=== PATIENT | female | born 1960 | race Caucasian/White ===

== ENCOUNTER 2017-07-01 20:13 | Emergency (ER) | payer MEDICARE, OTHER ==
[2017-07-01] MEDS: HYDROmorphONE 1 MG/ML SYG IM (21:25)
== END 2017-07-02 00:12 | disposition home or self-care (01) ==
LOC: E/R 07-02 00:12
DX: S99.912A Unspecified injury of left ankle, initial encounter (principal); G20 Parkinson's disease; I12.0 Hypertensive chronic kidney disease with stage 5 chronic kidney disease or end stage renal disease; N18.6 End stage renal disease; E11.9 Type 2 diabetes mellitus without complications; W06.XXXA Fall from bed, initial encounter; Y92.9 Unspecified place or not applicable; Z79.82 Long term (current) use of aspirin; Z99.2 Dependence on renal dialysis; Z79.4 Long term (current) use of insulin
CPT/HCPCS: 73610; 73610-RT; 99283-25

== ENCOUNTER 2017-07-15 01:21 | Inpatient (IN) | payer MEDICARE, OTHER ==
[2017-07-15 02:13] LABS: ADD MAN DIFF? NO
[2017-07-15 02:15] LABS: WHITE BLOOD COUNT 11.6 10^3/ul (4.8-10.8)
[2017-07-15 02:15] LABS: ABNORMAL IP MESSAGE 1; BASOPHILS % 0.2 % (0.0-2.0); EOSINOPHILS % 0.1 % (0.0-7.0); HEMATOCRIT 38.4 % (37.0-47.0); HEMOGLOBIN 12.5 g/dl (12.0-16.0); LYMPHOCYTES # 0.4 10^3/ul (0.8-2.9); LYMPHOCYTES % 3.7 % (15.0-51.0); MEAN CORPUSCULAR HEMOGLOBIN 29.8 pg (29.0-33.0); MEAN CORPUSCULAR HGB CONC 32.6 g/dl (32.0-37.0); MEAN CORPUSCULAR VOLUME 91.6 fl (82.0-101.0); MEAN PLATELET VOLUME 9.9 fl (7.4-10.4); MONOCYTE # 1.2 10^3/ul (0.3-0.9); NEUTROPHIL # 9.9 10^3/ul (1.6-7.5); NEUTROPHILS % 85.3 % (39.0-77.0); NUCLEATED RED BLOOD CELLS% 0.2 /100WBC (0.0-0.0); PLATELET COUNT 154 10^3/UL (140-415); RED BLOOD COUNT 4.19 10^6/ul (4.20-5.40); RED CELL DISTRIBUTION WIDTH 16.1 % (11.5-14.5)
[2017-07-15] MEDS: DEXTROSE 50% 50 ML SYRINGE IV ×2 (02:24→21:06)
[2017-07-15 02:49] LABS: INR 1.83; PROTIME 21.6 Sec (11.9-14.9); PT RATIO 1.7
[2017-07-15 02:50] LABS: PARTIAL THROMBOPLASTIN TIME 42.8 Sec (25.0-35.0)
[2017-07-15 03:04] LABS: ADD UMIC YES; POSITIVE DIFF @See below; UR ASCORBIC ACID NEGATIVE (NEGATIVE); UR BILIRUBIN (Dip) NEGATIVE (NEGATIVE); UR BLOOD (Dip) NEGATIVE (NEGATIVE); UR CLARITY CLEAR (CLEAR); UR COLOR YELLOW (YELLOW); UR GLUCOSE (Dip) 2+ mg/dL (NEGATIVE); UR KETONES (Dip) NEGATIVE (NEGATIVE); UR LEUKOCYTE ESTERASE (Dip) NEGATIVE Leu/ul (NEGATIVE); UR NITRITE (Dip) NEGATIVE (NEGATIVE); UR RBC 1 /HPF (0-5); UR SPECIFIC GRAVITY (Dip) 1.011 (1.003-1.030); UR TOTAL PROTEIN (Dip) 2+ mg/dl (NEGATIVE); UR UROBILINOGEN (Dip) NEGATIVE (NEGATIVE); UR WBC 0 /HPF (0-5)
[2017-07-15 03:23] LABS: ALANINE AMINOTRANSFERASE 71 IU/L (13-69); ALBUMIN 5.3 g/dl (3.3-4.9); ALBUMIN/GLOBULIN RATIO 1.39; ALKALINE PHOSPHATASE 273 IU/L (42-121); ANION GAP 45 (8-16); ASPARTATE AMINO TRANSFERASE 105 IU/L (15-46); BILIRUBIN,INDIRECT 0.2 mg/dl (0-1.1); BILIRUBIN,TOTAL 1.1 mg/dl (0.2-1.3); BLOOD UREA NITROGEN 78 mg/dl (7-20); CALCIUM 10.2 mg/dl (8.4-10.2); CARBON DIOXIDE 10 mmol/L (21-31); CHLORIDE 95 mmol/L (97-110); CREATININE 9.46 mg/dl (0.44-1.00); SODIUM 143 mmol/L (135-144); TOTAL PROTEIN 9.1 g/dl (6.1-8.1)
[2017-07-15 03:24] LABS: LACTIC ACID > 12.0 mmol/L (0.5-2.0)
[2017-07-15] MEDS: VANCOMYCIN 1 GM (PMX) 250 ML IVPB (03:30)
[2017-07-15 03:44] LABS: GLUCOSE 47 mg/dl (70-220)
[2017-07-15 03:45] LABS: POTASSIUM 6.8 mmol/L (3.5-5.1)
[2017-07-15 03:47] LABS: TROPONIN-I 0.355 ng/ml (0.00-0.12)
[2017-07-15] MEDS: SODIUM CHLORIDE 0.9% 1L BAG IV* (04:01)
[2017-07-15] MEDS: CEFEPIME 2GM/50 ML (PMX) 50 ML IVPB (04:01)
[2017-07-15 04:19] LABS: LACTIC ACID 7.2 mmol/L (0.5-2.0)
[2017-07-15] MEDS: NA BICARBONATE 8.4% 50 ML SYG IV (06:00)
[2017-07-15] MEDS: CA CHLORIDE 10% 10 ML SYRINGE IV (06:00)
[2017-07-15 06:28] LABS: LACTIC ACID 4.8 mmol/L (0.5-2.0)
[2017-07-15] MEDS: NA POLYST SULFON 15 GM/60 ML BTL PO (06:30)
[2017-07-15] MEDS ORDERED: ONDANSETRON 4 MG INJ IV (07:00)
[2017-07-15] MEDS ORDERED: morphine 4 MG/ML VIAL IV (07:00)
[2017-07-15] MEDS ORDERED: NACL 0.9% 3 ML SYG IV (07:00)
[2017-07-15] MEDS: NITROGLYCERIN 50 MG/D5W (PMX) 250 ML IV ×3 (07:26→15:30)
[2017-07-15] MEDS: MAGNESIUM CITRATE 300 ML BTL PO (07:30)
[2017-07-15] MEDS: GABAPENTIN 300 MG CAP PO ×3 (07:30→21:00)
[2017-07-15] MEDS ORDERED: GLUCAGON 1 MG INJ IM (07:30)
[2017-07-15] MEDS ORDERED: DEXTROSE 50% 50 ML SYRINGE IV (07:30)
[2017-07-15] MEDS ORDERED: GLUCOSE GEL 15 GRAM TUBE PO ×2 (07:30)
[2017-07-15] MEDS ORDERED: GLUCOSE GEL 15 GRAM TUBE BUCCAL (07:30)
[2017-07-15 07:46] LABS: CREATINE KINASE 309 IU/L (23-200)
[2017-07-15] MEDS: SEVELAMER CARBONATE 0.8 GM PKT PO ×3 (07:56→17:35)
[2017-07-15 07:58] LABS: CK INDEX 2.8
[2017-07-15] MEDS: INSULIN ASPART [NOVOLOG] 3 ML PEN SC ×4 (08:00→20:56)
[2017-07-15 08:03] LABS: TROPONIN-I 0.314 ng/ml (0.00-0.12)
[2017-07-15 08:59] LABS: AADO2 Arterial 173.4 mmHg (7.0-24.0); Allen Test ACCEPTAB; Arterial Base Excess -7.3 mmol/L (-3.0-3); Arterial COHb 0.3 % (0.0-3.0); Arterial Fraction of Oxyhgb 90.5 % (93.0-99.0); Arterial HCO3 17.7 mmol/L (22.0-26.0); Arterial MetHb 0.2 % (0.0-1.5); Arterial Total Hemglobin 11.8 g/dl (12.0-18.0); Arterial pCO2 33.8 mmhg (35-45); Blood Gas IEPAP 15/5; Blood Gas PS 10; MODE MASK - BIPAP; Site Right Radial
[2017-07-15] MEDS ORDERED: FUROSEMIDE 40 MG TAB PO (09:00)
[2017-07-15] MEDS ORDERED: NON-FORMULARY/PATIENT OWN MED (Olmesartan-Amlodipine-HCTZ (Tribenzor) 1 TAB) PO (09:00)
[2017-07-15] MEDS: BISACODYL 10 MG SUPP PR (09:30)
[2017-07-15 11:22] LABS: HEPATITIS B SURFACE ANTIGEN NEGATIVE (NEGATIVE)
[2017-07-15] MEDS: LIDOCAINE 5% 35 GM OINT TOP (11:40)
[2017-07-15 13:03] LABS: CREATINE KINASE 259 IU/L (23-200)
[2017-07-15 13:14] LABS: CK INDEX 3.1; CK-MB 7.92 ng/ml (0.0-2.4)
[2017-07-15 13:18] LABS: TROPONIN-I 0.377 ng/ml (0.00-0.12)
[2017-07-15] MEDS: ALBUTEROL/IPRATROPIUM (NEB) 3 ML AMP HHN ×2 (14:29→19:44)
[2017-07-15] MEDS: AMLODIPINE 10 MG TAB PO (16:38)
[2017-07-15] MEDS: DULOXETINE 30 MG CAP DR PO (16:38)
[2017-07-15] MEDS: LOSARTAN 50 MG TAB PO (16:39)
[2017-07-15] MEDS: HEPARIN 5,000 UNIT/0.5 ML VIAL SC ×2 (16:39→21:02)
[2017-07-15] MEDS: HYDROCHLOROTHIAZIDE 12.5 MG CAP PO (16:39)
[2017-07-15] MEDS: FERROUS SULFATE (EC) 325 MG TAB PO (16:39)
[2017-07-15] MEDS: SENNA TAB PO ×2 (16:39→21:00)
[2017-07-15] MEDS: METOPROLOL (XL) 25 MG TAB PO (16:39)
[2017-07-15] MEDS: ASPIRIN 81 MG TAB PO (16:39)
[2017-07-15] MEDS: LACTULOSE 30ML CUP PO (16:40)
[2017-07-15] MEDS: CEFEPIME 1GM/50 ML (PMX) 50 ML IVPB ×2 (16:40→21:00)
[2017-07-15] MEDS: POLYETHYLENE GLYCOL 17 GM PACKET PO ×2 (16:41→21:00)
[2017-07-15] MEDS: INSULIN GLARGINE [LANtus] 3 ML PEN SC ×2 (16:50→20:00)
[2017-07-15] MEDS: CALCITRIOL 0.25 MCG CAP PO (17:37)
[2017-07-15] MEDS: FUROSEMIDE 40 MG INJ IV (17:38)
[2017-07-15] MEDS ORDERED: INSULIN GLARGINE [LANtus] 3 ML PEN SC (21:00)
[2017-07-15] MEDS: ROPINIROLE 0.25 MG TAB PO (21:17)
[2017-07-16] MEDS: LORAZEPAM 2 MG INJ IV ×3 (01:19→20:31)
[2017-07-16] MEDS: ACCU-CHEK XX (01:27)
[2017-07-16] MEDS: ALBUTEROL/IPRATROPIUM (NEB) 3 ML AMP HHN ×4 (02:25→19:45)
[2017-07-16] MEDS: morphine 2 MG INJ IV ×2 (02:38→14:26)
[2017-07-16] MEDS ORDERED: VANCOMYCIN IV PER PHARMACY XX (04:30)
[2017-07-16] MEDS: FUROSEMIDE 40 MG INJ IV (05:16)
[2017-07-16 05:44] LABS: ADD MAN DIFF? NO
[2017-07-16 06:23] LABS: ALANINE AMINOTRANSFERASE 217 IU/L (13-69); ALBUMIN 3.9 g/dl (3.3-4.9); ALBUMIN/GLOBULIN RATIO 1.18; ALKALINE PHOSPHATASE 195 IU/L (42-121); ANION GAP 21 (8-16); ASPARTATE AMINO TRANSFERASE 263 IU/L (15-46); BILIRUBIN,INDIRECT 0.1 mg/dl (0-1.1); BILIRUBIN,TOTAL 0.1 mg/dl (0.2-1.3); BLOOD UREA NITROGEN 56 mg/dl (7-20); CALCIUM 8.7 mg/dl (8.4-10.2); CARBON DIOXIDE 29 mmol/L (21-31); CHLORIDE 93 mmol/L (97-110); CHOL/HDL RATIO 2.4 RATIO; CHOLESTEROL 124 mg/dl (100-200); CREATININE 6.58 mg/dl (0.44-1.00); GLUCOSE 111 mg/dl (70-220); HDL CHOLESTEROL 51 mg/dl (37-92); LDL CHOLESTEROL,CALCULATED 55 mg/dl; POTASSIUM 4.5 mmol/L (3.5-5.1); SODIUM 138 mmol/L (135-144); TOTAL PROTEIN 7.2 g/dl (6.1-8.1); TRIGLYCERIDES 92 mg/dl (0-149)
[2017-07-16] MEDS: hydrALAzine 20 MG INJ IV (07:09)
[2017-07-16 07:22] LABS: HEMOGLOBIN A1C 6.4 % (0-5.9)
[2017-07-16] MEDS: MAGNESIUM CITRATE 300 ML BTL PO (07:30)
[2017-07-16] MEDS: BISACODYL 10 MG SUPP PR (07:30)
[2017-07-16] MEDS: INSULIN ASPART [NOVOLOG] 3 ML PEN SC ×4 (07:35→21:04)
[2017-07-16 07:40] LABS: WHITE BLOOD COUNT 10.3 10^3/ul (4.8-10.8)
[2017-07-16 07:40] LABS: ABNORMAL IP MESSAGE 1; BASOPHILS % 0.2 % (0.0-2.0); EOSINOPHILS # 0.1 10^3/ul (0.0-0.5); HEMOGLOBIN 11.5 g/dl (12.0-16.0); LYMPHOCYTES # 0.6 10^3/ul (0.8-2.9); LYMPHOCYTES % 5.4 % (15.0-51.0); MEAN CORPUSCULAR HEMOGLOBIN 28.7 pg (29.0-33.0); MEAN CORPUSCULAR HGB CONC 32.9 g/dl (32.0-37.0); MEAN CORPUSCULAR VOLUME 87.3 fl (82.0-101.0); MEAN PLATELET VOLUME 10.4 fl (7.4-10.4); MONOCYTE # 0.8 10^3/ul (0.3-0.9); MONOCYTES % 8.1 % (0.0-11.0); NEUTROPHIL # 8.8 10^3/ul (1.6-7.5); NEUTROPHILS % 85.1 % (39.0-77.0); PLATELET COUNT 143 10^3/UL (140-415); RED BLOOD COUNT 4.01 10^6/ul (4.20-5.40); RED CELL DISTRIBUTION WIDTH 15.9 % (11.5-14.5)
[2017-07-16 07:42] LABS: POSITIVE DIFF @See below
[2017-07-16] MEDS: CEFEPIME 1GM/50 ML (PMX) 50 ML IVPB (08:46)
[2017-07-16] MEDS: FERROUS SULFATE (EC) 325 MG TAB PO (08:46)
[2017-07-16] MEDS: SEVELAMER CARBONATE 0.8 GM PKT PO ×2 (08:46→11:30)
[2017-07-16] MEDS: CALCITRIOL 0.25 MCG CAP PO (08:46)
[2017-07-16] MEDS: DULOXETINE 30 MG CAP DR PO (08:46)
[2017-07-16] MEDS: LACTULOSE 30ML CUP PO (08:46)
[2017-07-16] MEDS: SENNA TAB PO ×2 (08:47→21:00)
[2017-07-16] MEDS: ASPIRIN 81 MG TAB PO (08:47)
[2017-07-16] MEDS: GABAPENTIN 300 MG CAP PO ×3 (08:47→21:00)
[2017-07-16] MEDS: POLYETHYLENE GLYCOL 17 GM PACKET PO ×2 (08:47→21:00)
[2017-07-16] MEDS: HEPARIN 5,000 UNIT/0.5 ML VIAL SC ×2 (08:48→21:05)
[2017-07-16] MEDS: AMLODIPINE 10 MG TAB PO (12:18)
[2017-07-16] MEDS: HYDROCHLOROTHIAZIDE 12.5 MG CAP PO (12:18)
[2017-07-16] MEDS: LOSARTAN 50 MG TAB PO (12:18)
[2017-07-16] MEDS: METOPROLOL (XL) 25 MG TAB PO (12:19)
[2017-07-16] MEDS: ALPRAZOLAM 0.25 MG TAB PO (14:53)
[2017-07-16] MEDS: SEVELAMER 400 MG TAB PO ×2 (14:53→17:48)
[2017-07-16] MEDS ORDERED: SEVELAMER 400 MG TAB PO (17:35)
[2017-07-16] MEDS: ROPINIROLE 0.25 MG TAB PO (21:00)
[2017-07-16] MEDS: INSULIN GLARGINE [LANtus] 3 ML PEN SC (21:03)
[2017-07-17] MEDS: ACCU-CHEK XX (02:00)
[2017-07-17] MEDS: ALBUTEROL/IPRATROPIUM (NEB) 3 ML AMP HHN ×2 (03:04→08:00)
[2017-07-17] MEDS: hydrALAzine 20 MG INJ IV (04:13)
[2017-07-17 05:12] LABS: ADD MAN DIFF? NO
[2017-07-17 05:17] LABS: ABNORMAL IP MESSAGE 1; BASOPHILS % 0.2 % (0.0-2.0); EOSINOPHILS # 0.3 10^3/ul (0.0-0.5); EOSINOPHILS % 2.9 % (0.0-7.0); HEMATOCRIT 32.2 % (37.0-47.0); HEMOGLOBIN 11.6 g/dl (12.0-16.0); LYMPHOCYTES # 0.4 10^3/ul (0.8-2.9); LYMPHOCYTES % 4.9 % (15.0-51.0); MEAN CORPUSCULAR VOLUME 91.7 fl (82.0-101.0); MEAN PLATELET VOLUME 9.2 fl (7.4-10.4); MONOCYTE # 0.9 10^3/ul (0.3-0.9); MONOCYTES % 9.4 % (0.0-11.0); NEUTROPHIL # 7.4 10^3/ul (1.6-7.5); NEUTROPHILS % 82.3 % (39.0-77.0); PLATELET COUNT 132 10^3/UL (140-415); RED BLOOD COUNT 3.51 10^6/ul (4.20-5.40); RED CELL DISTRIBUTION WIDTH 15.8 % (11.5-14.5)
[2017-07-17 05:21] LABS: POSITIVE DIFF @See below
[2017-07-17 05:35] LABS: ANION GAP 17 (8-16); BLOOD UREA NITROGEN 35 mg/dl (7-20); CALCIUM 9.1 mg/dl (8.4-10.2); CARBON DIOXIDE 28 mmol/L (21-31); CHLORIDE 100 mmol/L (97-110); CREATININE 4.87 mg/dl (0.44-1.00); GLUCOSE 126 mg/dl (70-220); PHOSPHORUS 4.3 mg/dl (2.5-4.9); POTASSIUM 4.2 mmol/L (3.5-5.1); SODIUM 141 mmol/L (135-144)
[2017-07-17 05:54] LABS: VANCOMYCIN,RANDOM < 5.0 ug/ml
[2017-07-17] MEDS: MAGNESIUM CITRATE 300 ML BTL PO (07:30)
[2017-07-17] MEDS: INSULIN ASPART [NOVOLOG] 3 ML PEN SC ×4 (07:35→21:00)
[2017-07-17] MEDS: LORAZEPAM 2 MG INJ IV ×2 (09:29→19:58)
[2017-07-17] MEDS: HEPARIN 5,000 UNIT/0.5 ML VIAL SC ×2 (09:30→21:00)
[2017-07-17] MEDS: SEVELAMER 400 MG TAB PO ×3 (09:31→18:10)
[2017-07-17] MEDS: METOPROLOL (XL) 25 MG TAB PO (09:31)
[2017-07-17] MEDS: GABAPENTIN 300 MG CAP PO ×3 (09:31→21:13)
[2017-07-17] MEDS: DULOXETINE 30 MG CAP DR PO (09:31)
[2017-07-17] MEDS: FERROUS SULFATE (EC) 325 MG TAB PO (09:32)
[2017-07-17] MEDS: HYDROCHLOROTHIAZIDE 12.5 MG CAP PO (09:32)
[2017-07-17] MEDS: AMLODIPINE 10 MG TAB PO (09:32)
[2017-07-17] MEDS: ASPIRIN 81 MG TAB PO (09:32)
[2017-07-17] MEDS: POLYETHYLENE GLYCOL 17 GM PACKET PO ×2 (09:33→21:14)
[2017-07-17] MEDS: LACTULOSE 30ML CUP PO (09:33)
[2017-07-17] MEDS: LOSARTAN 50 MG TAB PO (09:33)
[2017-07-17] MEDS: CEFEPIME 1GM/50 ML (PMX) 50 ML IVPB (09:34)
[2017-07-17] MEDS: SENNA TAB PO ×2 (09:34→21:12)
[2017-07-17] MEDS: BISACODYL 10 MG SUPP PR (09:34)
[2017-07-17] MEDS: CALCITRIOL 0.25 MCG CAP PO (09:35)
[2017-07-17 09:57] LABS: CREATINE KINASE 232 IU/L (23-200)
[2017-07-17 10:10] LABS: AADO2 Arterial 129.8 mmHg (7.0-24.0); Allen Test ACCEPTAB; Arterial Base Excess 0.4 mmol/L (-3.0-3); Arterial Blood Gas Oxygen Sat 90.9 mmHG (95.0-98.0); Arterial COHb 0.8 % (0.0-3.0); Arterial MetHb 0.2 % (0.0-1.5); Arterial Total Hemglobin 13.5 g/dl (12.0-18.0); Arterial pCO2 35.6 mmhg (35-45); MODE NASAL CANNULA; Site Right Radial
[2017-07-17 10:18] LABS: CK INDEX 2.5; CK-MB 5.77 ng/ml (0.0-2.4)
[2017-07-17 10:21] LABS: TROPONIN-I 0.221 ng/ml (0.00-0.12)
[2017-07-17 11:27] LABS: CREATINE KINASE 215 IU/L (23-200)
[2017-07-17 11:40] LABS: CK INDEX 2.4; CK-MB 5.15 ng/ml (0.0-2.4)
[2017-07-17 11:43] LABS: TROPONIN-I 0.219 ng/ml (0.00-0.12)
[2017-07-17] MEDS: HYDROmorphONE 2 MG TAB PO (12:26)
[2017-07-17] MEDS: ALPRAZOLAM 0.25 MG TAB PO (12:26)
[2017-07-17] MEDS: HEPARIN 1000 UNITS/ML 10 ML INJ CATHETER (16:57)
[2017-07-17] MEDS: VANCOMYCIN 1.5 GM in SOD CHLORIDE 0.9% 250 ML IVPB (18:10)
[2017-07-17] MEDS: HYDROmorphONE 0.5 MG/0.5 ML SYG IV ×2 (19:59→23:46)
[2017-07-17] MEDS: ROPINIROLE 0.25 MG TAB PO (21:13)
[2017-07-18] MEDS: INSULIN GLARGINE [LANtus] 3 ML PEN SC (00:01)
[2017-07-18] MEDS: ACCU-CHEK XX (02:00)
[2017-07-18 06:11] LABS: ADD MAN DIFF? NO
[2017-07-18 06:22] LABS: BASOPHILS % 0.5 % (0.0-2.0); EOSINOPHILS # 0.4 10^3/ul (0.0-0.5); EOSINOPHILS % 4.8 % (0.0-7.0); HEMATOCRIT 34.1 % (37.0-47.0); HEMOGLOBIN 12.3 g/dl (12.0-16.0); LYMPHOCYTES # 0.8 10^3/ul (0.8-2.9); LYMPHOCYTES % 9.5 % (15.0-51.0); MEAN CORPUSCULAR HEMOGLOBIN 33.7 pg (29.0-33.0); MEAN CORPUSCULAR HGB CONC 36.1 g/dl (32.0-37.0); MEAN CORPUSCULAR VOLUME 93.4 fl (82.0-101.0); MEAN PLATELET VOLUME 9.1 fl (7.4-10.4); MONOCYTE # 0.9 10^3/ul (0.3-0.9); MONOCYTES % 10.8 % (0.0-11.0); NEUTROPHIL # 6.1 10^3/ul (1.6-7.5); NEUTROPHILS % 74.2 % (39.0-77.0); PLATELET COUNT 140 10^3/UL (140-415); RED BLOOD COUNT 3.65 10^6/ul (4.20-5.40); RED CELL DISTRIBUTION WIDTH 16.1 % (11.5-14.5)
[2017-07-18 06:22] LABS: WHITE BLOOD COUNT 8.3 10^3/ul (4.8-10.8)
[2017-07-18 07:16] LABS: ANION GAP 16 (8-16)
[2017-07-18 07:22] LABS: BLOOD UREA NITROGEN 20 mg/dl (7-20); CALCIUM 9.3 mg/dl (8.4-10.2); CARBON DIOXIDE 26 mmol/L (21-31); CHLORIDE 103 mmol/L (97-110); MAGNESIUM 2.1 mg/dl (1.7-2.5); PHOSPHORUS 4.2 mg/dl (2.5-4.9); SODIUM 141 mmol/L (135-144)
[2017-07-18] MEDS: MAGNESIUM CITRATE 300 ML BTL PO (07:30)
[2017-07-18 07:45] LABS: GLUCOSE 50 mg/dl (70-220)
[2017-07-18] MEDS: DEXTROSE 50% 50 ML SYRINGE IV (07:50)
[2017-07-18] MEDS: INSULIN ASPART [NOVOLOG] 3 ML PEN SC ×4 (07:55→21:00)
[2017-07-18] MEDS: CALCITRIOL 0.25 MCG CAP PO (08:36)
[2017-07-18] MEDS: LACTULOSE 30ML CUP PO (08:36)
[2017-07-18] MEDS: GABAPENTIN 300 MG CAP PO ×3 (08:37→20:17)
[2017-07-18] MEDS: LOSARTAN 50 MG TAB PO (08:37)
[2017-07-18] MEDS: SEVELAMER 400 MG TAB PO ×3 (08:37→18:27)
[2017-07-18] MEDS: DULOXETINE 30 MG CAP DR PO (08:37)
[2017-07-18] MEDS: AMLODIPINE 10 MG TAB PO (08:38)
[2017-07-18] MEDS: HYDROCHLOROTHIAZIDE 12.5 MG CAP PO (08:38)
[2017-07-18] MEDS: ASPIRIN 81 MG TAB PO (08:38)
[2017-07-18] MEDS: FERROUS SULFATE (EC) 325 MG TAB PO (08:39)
[2017-07-18] MEDS: SENNA TAB PO ×2 (08:39→20:16)
[2017-07-18] MEDS: METOPROLOL (XL) 25 MG TAB PO (08:40)
[2017-07-18] MEDS: BISACODYL 10 MG SUPP PR (08:41)
[2017-07-18] MEDS: HEPARIN 5,000 UNIT/0.5 ML VIAL SC (08:52)
[2017-07-18] MEDS: POLYETHYLENE GLYCOL 17 GM PACKET PO ×2 (09:00→20:15)
[2017-07-18] MEDS: HYDROmorphONE 2 MG TAB PO (09:51)
[2017-07-18] MEDS: CEFEPIME 1GM/50 ML (PMX) 50 ML IVPB (09:53)
[2017-07-18 11:44] LABS: PT RATIO 1.1
[2017-07-18 11:45] LABS: PARTIAL THROMBOPLASTIN TIME 36.5 Sec (25.0-35.0)
[2017-07-18 12:29] LABS: PROTIME 14.4 Sec (11.9-14.9)
[2017-07-18] MEDS: HYDROmorphONE 0.5 MG/0.5 ML SYG IV ×2 (12:59→20:10)
[2017-07-18] MEDS: PHYTONADIONE 10 MG in DEXTROSE 5% 50 ML IVPB (15:25)
[2017-07-18] MEDS: hydrALAzine 20 MG INJ IV (16:35)
[2017-07-18] MEDS: ALBUTEROL/IPRATROPIUM (NEB) 3 ML AMP HHN ×2 (17:41→22:26)
[2017-07-18] MEDS: ROPINIROLE 0.25 MG TAB PO (20:17)
[2017-07-18] MEDS ORDERED: NITROGLYCERIN (SL) 0.4 MG TAB SL (20:30)
[2017-07-18] MEDS: DIPHENHYDRAMINE 25 MG CAP PO (21:55)
[2017-07-18] MEDS: LORAZEPAM 2 MG INJ IV (22:06)
[2017-07-18] MEDS: traMADol 50 MG TAB PO (22:10)
[2017-07-19] MEDS: ACCU-CHEK XX (01:21)
[2017-07-19] MEDS: HYDROmorphONE 0.5 MG/0.5 ML SYG IV ×4 (01:33→22:52)
[2017-07-19] MEDS: ALBUTEROL/IPRATROPIUM (NEB) 3 ML AMP HHN (02:07)
[2017-07-19] MEDS: MAGNESIUM CITRATE 300 ML BTL PO (07:30)
[2017-07-19] MEDS: BISACODYL 10 MG SUPP PR (07:30)
[2017-07-19] MEDS: INSULIN ASPART [NOVOLOG] 3 ML PEN SC ×4 (07:55→20:14)
[2017-07-19] MEDS: SEVELAMER 400 MG TAB PO ×3 (07:55→17:15)
[2017-07-19 08:41] LABS: CREATINE KINASE 84 IU/L (23-200)
[2017-07-19 08:47] LABS: VANCOMYCIN,RANDOM 19.8 ug/ml
[2017-07-19 08:54] LABS: CK INDEX 2.5; CK-MB 2.13 ng/ml (0.0-2.4); TROPONIN-I 0.125 ng/ml (0.00-0.12)
[2017-07-19] MEDS: SENNA TAB PO ×2 (09:00→20:14)
[2017-07-19] MEDS: METOPROLOL (XL) 25 MG TAB PO (09:00)
[2017-07-19] MEDS: AMLODIPINE 10 MG TAB PO (09:00)
[2017-07-19] MEDS: FERROUS SULFATE (EC) 325 MG TAB PO (09:00)
[2017-07-19] MEDS: LOSARTAN 50 MG TAB PO (09:00)
[2017-07-19] MEDS: GABAPENTIN 300 MG CAP PO ×3 (09:00→20:13)
[2017-07-19] MEDS: LACTULOSE 30ML CUP PO (09:00)
[2017-07-19] MEDS: CALCITRIOL 0.25 MCG CAP PO (09:00)
[2017-07-19] MEDS: ASPIRIN 81 MG TAB PO (09:00)
[2017-07-19] MEDS: DULOXETINE 30 MG CAP DR PO (09:00)
[2017-07-19] MEDS: POLYETHYLENE GLYCOL 17 GM PACKET PO ×2 (09:00→20:14)
[2017-07-19] MEDS: CEFEPIME 1GM/50 ML (PMX) 50 ML IVPB (11:10)
[2017-07-19] MEDS: REGADENOSON 0.4 MG/5 ML SYG (11:24)
[2017-07-19] MEDS: DIPHENHYDRAMINE 25 MG CAP PO (17:15)
[2017-07-19] MEDS: morphine LIQ (10 MG/5 ML) CUP PO (17:15)
[2017-07-19] MEDS: HYDROmorphONE 2 MG TAB PO (20:14)
[2017-07-19] MEDS: ROPINIROLE 0.25 MG TAB PO (20:14)
[2017-07-19] MEDS: TRIAMCINOLONE ACET 0.1% 15 GM CR TOP (23:24)
[2017-07-20] MEDS: ALBUTEROL/IPRATROPIUM (NEB) 3 ML AMP HHN ×2 (00:08→08:49)
[2017-07-20] MEDS: hydrALAzine 20 MG INJ IV (00:30)
[2017-07-20] MEDS: DIPHENHYDRAMINE 25 MG CAP PO ×2 (00:53→20:31)
[2017-07-20] MEDS: ACCU-CHEK XX (01:14)
[2017-07-20] MEDS: LORAZEPAM 2 MG INJ IV ×2 (02:03→22:43)
[2017-07-20 06:24] LABS: ADD MAN DIFF? NO
[2017-07-20 06:31] LABS: WHITE BLOOD COUNT 7.8 10^3/ul (4.8-10.8)
[2017-07-20 06:31] LABS: BASOPHILS % 0.3 % (0.0-2.0); EOSINOPHILS # 0.3 10^3/ul (0.0-0.5); EOSINOPHILS % 3.9 % (0.0-7.0); HEMATOCRIT 26.5 % (37.0-47.0); HEMOGLOBIN 8.7 g/dl (12.0-16.0); LYMPHOCYTES # 0.8 10^3/ul (0.8-2.9); LYMPHOCYTES % 10.2 % (15.0-51.0); MEAN CORPUSCULAR HEMOGLOBIN 28.9 pg (29.0-33.0); MEAN CORPUSCULAR HGB CONC 32.8 g/dl (32.0-37.0); MEAN PLATELET VOLUME 9.7 fl (7.4-10.4); MONOCYTE # 0.9 10^3/ul (0.3-0.9); NEUTROPHIL # 5.7 10^3/ul (1.6-7.5); NEUTROPHILS % 73.3 % (39.0-77.0); PLATELET COUNT 107 10^3/UL (140-415); RED BLOOD COUNT 3.01 10^6/ul (4.20-5.40); RED CELL DISTRIBUTION WIDTH 16.3 % (11.5-14.5)
[2017-07-20 07:08] LABS: ANION GAP 20 (8-16); BLOOD UREA NITROGEN 63 mg/dl (7-20); CALCIUM 7.6 mg/dl (8.4-10.2); CARBON DIOXIDE 18 mmol/L (21-31); CHLORIDE 102 mmol/L (97-110); CREATININE 6.31 mg/dl (0.44-1.00); GLUCOSE 145 mg/dl (70-220); MAGNESIUM 1.9 mg/dl (1.7-2.5); PHOSPHORUS 6.6 mg/dl (2.5-4.9); POTASSIUM 4.8 mmol/L (3.5-5.1); SODIUM 135 mmol/L (135-144)
[2017-07-20] MEDS: BISACODYL 10 MG SUPP PR (07:30)
[2017-07-20] MEDS: MAGNESIUM CITRATE 300 ML BTL PO (07:30)
[2017-07-20] MEDS: SENNA TAB PO ×2 (08:05→20:31)
[2017-07-20] MEDS: DULOXETINE 30 MG CAP DR PO (08:05)
[2017-07-20] MEDS: FERROUS SULFATE (EC) 325 MG TAB PO (08:05)
[2017-07-20] MEDS: POLYETHYLENE GLYCOL 17 GM PACKET PO ×2 (08:05→20:31)
[2017-07-20] MEDS: GABAPENTIN 300 MG CAP PO ×3 (08:06→20:31)
[2017-07-20] MEDS: LACTULOSE 30ML CUP PO (08:06)
[2017-07-20] MEDS: INSULIN ASPART [NOVOLOG] 3 ML PEN SC ×4 (08:07→20:45)
[2017-07-20] MEDS: ASPIRIN 81 MG TAB PO (08:11)
[2017-07-20] MEDS: SEVELAMER 400 MG TAB PO ×3 (08:15→17:11)
[2017-07-20] MEDS: METOPROLOL (XL) 25 MG TAB PO (09:00)
[2017-07-20] MEDS: LOSARTAN 50 MG TAB PO (09:00)
[2017-07-20] MEDS: AMLODIPINE 10 MG TAB PO (09:00)
[2017-07-20] MEDS: CEFEPIME 1GM/50 ML (PMX) 50 ML IVPB (09:55)
[2017-07-20] MEDS: CALCITRIOL 0.25 MCG CAP PO (11:53)
[2017-07-20] MEDS: VANCOMYCIN 750 MG in DEXTROSE 5% 150 ML IVPB (14:21)
[2017-07-20] MEDS: HYDROmorphONE 0.5 MG/0.5 ML SYG IV ×2 (16:02→20:33)
[2017-07-20] MEDS: DIMETHICONE STICK TOP (16:02)
[2017-07-20] MEDS: traMADol 50 MG TAB PO (18:50)
[2017-07-20] MEDS: ROPINIROLE 0.25 MG TAB PO (20:31)
[2017-07-20] MEDS: TRIAMCINOLONE ACET 0.1% 15 GM CR TOP (21:52)
[2017-07-21] MEDS: HYDROmorphONE 0.5 MG/0.5 ML SYG IV ×5 (01:58→23:36)
[2017-07-21] MEDS: ACCU-CHEK XX (02:00)
[2017-07-21] MEDS: DIPHENHYDRAMINE 25 MG CAP PO (03:32)
[2017-07-21] MEDS: HEPARIN 1000 UNITS/ML 10 ML INJ CATHETER (05:46)
[2017-07-21 06:42] LABS: ALANINE AMINOTRANSFERASE 86 IU/L (13-69); ALBUMIN 3.9 g/dl (3.3-4.9); ALKALINE PHOSPHATASE 199 IU/L (42-121); ASPARTATE AMINO TRANSFERASE 34 IU/L (15-46); BILIRUBIN,INDIRECT 0.1 mg/dl (0-1.1); BILIRUBIN,TOTAL 0.1 mg/dl (0.2-1.3); TOTAL PROTEIN 7.3 g/dl (6.1-8.1)
[2017-07-21] MEDS: BISACODYL 10 MG SUPP PR (07:30)
[2017-07-21] MEDS: MAGNESIUM CITRATE 300 ML BTL PO (07:30)
[2017-07-21] MEDS: INSULIN ASPART [NOVOLOG] 3 ML PEN SC ×4 (08:03→21:00)
[2017-07-21] MEDS: traMADol 50 MG TAB PO ×2 (08:26→16:11)
[2017-07-21] MEDS: GABAPENTIN 300 MG CAP PO ×3 (08:27→22:07)
[2017-07-21] MEDS: DULOXETINE 30 MG CAP DR PO (08:27)
[2017-07-21] MEDS: FERROUS SULFATE (EC) 325 MG TAB PO (08:27)
[2017-07-21] MEDS: CALCITRIOL 0.25 MCG CAP PO (08:27)
[2017-07-21] MEDS: ASPIRIN 81 MG TAB PO (08:27)
[2017-07-21] MEDS: SEVELAMER 400 MG TAB PO ×3 (08:27→17:25)
[2017-07-21] MEDS: METOPROLOL (XL) 25 MG TAB PO (08:28)
[2017-07-21] MEDS: AMLODIPINE 10 MG TAB PO (08:29)
[2017-07-21] MEDS: LOSARTAN 50 MG TAB PO (08:29)
[2017-07-21] MEDS: SENNA TAB PO ×2 (08:30→21:00)
[2017-07-21] MEDS: LACTULOSE 30ML CUP PO (08:30)
[2017-07-21] MEDS: POLYETHYLENE GLYCOL 17 GM PACKET PO ×2 (09:00→21:00)
[2017-07-21] MEDS: LORAZEPAM 2 MG INJ IV (12:14)
[2017-07-21] MEDS: ALPRAZOLAM 0.25 MG TAB PO (16:12)
[2017-07-21] MEDS: ALBUTEROL/IPRATROPIUM (NEB) 3 ML AMP HHN (20:29)
[2017-07-21] MEDS: ROPINIROLE 0.25 MG TAB PO (22:07)
[2017-07-22] MEDS: DIPHENHYDRAMINE 25 MG CAP PO ×2 (00:16→18:24)
[2017-07-22] MEDS: LORAZEPAM 0.5 MG TAB PO (01:10)
[2017-07-22] MEDS: ACCU-CHEK XX (02:00)
[2017-07-22] MEDS: HYDROmorphONE 0.5 MG/0.5 ML SYG IV ×2 (04:02→09:51)
[2017-07-22] MEDS: MAGNESIUM CITRATE 300 ML BTL PO (07:30)
[2017-07-22] MEDS: BISACODYL 10 MG SUPP PR (07:30)
[2017-07-22] MEDS: INSULIN ASPART [NOVOLOG] 3 ML PEN SC ×4 (07:51→20:47)
[2017-07-22 08:04] LABS: HEPATITIS C VIRAL ANTIBODY NEGATIVE (NEGATIVE)
[2017-07-22] MEDS: SEVELAMER 400 MG TAB PO ×3 (08:33→17:40)
[2017-07-22] MEDS: CALCITRIOL 0.25 MCG CAP PO (08:33)
[2017-07-22] MEDS: SENNA TAB PO ×2 (08:34→21:00)
[2017-07-22] MEDS: DULOXETINE 30 MG CAP DR PO (08:34)
[2017-07-22] MEDS: GABAPENTIN 300 MG CAP PO ×3 (08:34→22:08)
[2017-07-22] MEDS: FERROUS SULFATE (EC) 325 MG TAB PO (08:34)
[2017-07-22] MEDS: AMLODIPINE 10 MG TAB PO (08:34)
[2017-07-22] MEDS: METOPROLOL (XL) 25 MG TAB PO (08:34)
[2017-07-22] MEDS: ASPIRIN 81 MG TAB PO (08:35)
[2017-07-22] MEDS: LOSARTAN 50 MG TAB PO (08:35)
[2017-07-22] MEDS: LACTULOSE 30ML CUP PO (09:00)
[2017-07-22] MEDS: POLYETHYLENE GLYCOL 17 GM PACKET PO ×2 (09:00→21:00)
[2017-07-22 12:19] LABS: HEMOGLOBIN 10.4 g/dl (12.0-16.0)
[2017-07-22] MEDS: morphine LIQ (10 MG/5 ML) CUP PO (13:23)
[2017-07-22] MEDS: HYDROmorphONE 2 MG TAB PO (18:24)
[2017-07-22] MEDS: ROPINIROLE 0.25 MG TAB PO (22:08)
[2017-07-23] MEDS: ALPRAZOLAM 0.25 MG TAB PO (01:20)
[2017-07-23] MEDS: ACCU-CHEK XX (02:00)
[2017-07-23] MEDS: HYDROmorphONE 2 MG TAB PO ×2 (02:22→09:05)
[2017-07-23] MEDS: DIPHENHYDRAMINE 25 MG CAP PO ×3 (05:02→20:36)
[2017-07-23] MEDS: morphine LIQ (10 MG/5 ML) CUP PO ×3 (05:06→22:14)
[2017-07-23] MEDS: BISACODYL 10 MG SUPP PR (07:30)
[2017-07-23] MEDS: MAGNESIUM CITRATE 300 ML BTL PO (07:30)
[2017-07-23] MEDS: INSULIN ASPART [NOVOLOG] 3 ML PEN SC ×4 (08:15→20:44)
[2017-07-23] MEDS: SEVELAMER 400 MG TAB PO ×3 (08:15→17:59)
[2017-07-23] MEDS: LOSARTAN 50 MG TAB PO (08:31)
[2017-07-23] MEDS: AMLODIPINE 10 MG TAB PO (08:32)
[2017-07-23] MEDS: METOPROLOL (XL) 25 MG TAB PO (08:32)
[2017-07-23] MEDS: POLYETHYLENE GLYCOL 17 GM PACKET PO ×2 (09:00→20:38)
[2017-07-23] MEDS: ASPIRIN 81 MG TAB PO (09:00)
[2017-07-23] MEDS: SENNA TAB PO ×2 (09:00→20:41)
[2017-07-23] MEDS: FERROUS SULFATE (EC) 325 MG TAB PO (09:00)
[2017-07-23] MEDS: LACTULOSE 30ML CUP PO (09:00)
[2017-07-23] MEDS: HEPARIN 1000 UNITS/ML 10 ML INJ CATHETER (10:43)
[2017-07-23] MEDS: GABAPENTIN 300 MG CAP PO ×3 (13:44→20:36)
[2017-07-23] MEDS: DULOXETINE 30 MG CAP DR PO (13:44)
[2017-07-23] MEDS: CALCITRIOL 0.25 MCG CAP PO (13:48)
[2017-07-23] MEDS: traMADol 50 MG TAB PO (19:55)
[2017-07-23] MEDS: ROPINIROLE 0.25 MG TAB PO (20:36)
[2017-07-24] MEDS: ACCU-CHEK XX (00:50)
[2017-07-24] MEDS: traMADol 50 MG TAB PO ×2 (00:56→05:17)
[2017-07-24 05:59] LABS: ADD MAN DIFF? NO
[2017-07-24 06:01] LABS: WHITE BLOOD COUNT 8.4 10^3/ul (4.8-10.8)
[2017-07-24 06:01] LABS: BASOPHILS % 0.5 % (0.0-2.0); EOSINOPHILS # 0.2 10^3/ul (0.0-0.5); EOSINOPHILS % 2.4 % (0.0-7.0); HEMATOCRIT 31.1 % (37.0-47.0); LYMPHOCYTES # 0.8 10^3/ul (0.8-2.9); LYMPHOCYTES % 10.1 % (15.0-51.0); MEAN CORPUSCULAR HEMOGLOBIN 29.3 pg (29.0-33.0); MEAN CORPUSCULAR HGB CONC 32.2 g/dl (32.0-37.0); MEAN CORPUSCULAR VOLUME 91.2 fl (82.0-101.0); MEAN PLATELET VOLUME 9.7 fl (7.4-10.4); MONOCYTE # 1.4 10^3/ul (0.3-0.9); MONOCYTES % 16.4 % (0.0-11.0); NEUTROPHIL # 5.9 10^3/ul (1.6-7.5); NEUTROPHILS % 70.5 % (39.0-77.0); PLATELET COUNT 164 10^3/UL (140-415); RED BLOOD COUNT 3.41 10^6/ul (4.20-5.40); RED CELL DISTRIBUTION WIDTH 16.4 % (11.5-14.5)
[2017-07-24 06:47] LABS: ANION GAP 22 (8-16); BLOOD UREA NITROGEN 57 mg/dl (7-20); CALCIUM 9.1 mg/dl (8.4-10.2); CARBON DIOXIDE 23 mmol/L (21-31); CHLORIDE 100 mmol/L (97-110); CREATININE 5.23 mg/dl (0.44-1.00); GLUCOSE 128 mg/dl (70-220); POTASSIUM 5.8 mmol/L (3.5-5.1); SODIUM 139 mmol/L (135-144)
[2017-07-24 07:04] LABS: VANCOMYCIN,RANDOM 10.9 ug/ml
[2017-07-24] MEDS: BISACODYL 10 MG SUPP PR (07:30)
[2017-07-24] MEDS: MAGNESIUM CITRATE 300 ML BTL PO (07:30)
[2017-07-24] MEDS: INSULIN ASPART [NOVOLOG] 3 ML PEN SC ×4 (08:05→20:30)
[2017-07-24] MEDS: LACTULOSE 30ML CUP PO (08:27)
[2017-07-24] MEDS: POLYETHYLENE GLYCOL 17 GM PACKET PO ×2 (08:27→20:30)
[2017-07-24] MEDS: SENNA TAB PO ×2 (08:28→20:30)
[2017-07-24] MEDS: SEVELAMER 400 MG TAB PO ×3 (08:31→18:00)
[2017-07-24] MEDS: GABAPENTIN 300 MG CAP PO ×3 (08:31→20:29)
[2017-07-24] MEDS: AMLODIPINE 10 MG TAB PO (08:31)
[2017-07-24] MEDS: DULOXETINE 30 MG CAP DR PO (08:32)
[2017-07-24] MEDS: CALCITRIOL 0.25 MCG CAP PO (08:32)
[2017-07-24] MEDS: FERROUS SULFATE (EC) 325 MG TAB PO (08:32)
[2017-07-24] MEDS: ASPIRIN 81 MG TAB PO (08:35)
[2017-07-24] MEDS: METOPROLOL (XL) 25 MG TAB PO (08:35)
[2017-07-24] MEDS: LOSARTAN 50 MG TAB PO (08:37)
[2017-07-24] MEDS: morphine LIQ (10 MG/5 ML) CUP PO (10:52)
[2017-07-24] MEDS: ALPRAZOLAM 0.25 MG TAB PO (12:59)
[2017-07-24] MEDS: DIPHENHYDRAMINE 25 MG CAP PO (13:00)
[2017-07-24] MEDS: HEPARIN 1000 UNITS/ML 10 ML INJ CATHETER (14:37)
[2017-07-24] MEDS: VANCOMYCIN 1 GM 250 ML IVPB (17:42)
[2017-07-24] MEDS: ROPINIROLE 0.25 MG TAB PO (20:29)
[2017-07-25] MEDS: ACCU-CHEK XX (00:50)
[2017-07-25] MEDS: morphine LIQ (10 MG/5 ML) CUP PO ×3 (01:32→20:27)
[2017-07-25 05:48] LABS: ADD MAN DIFF? NO
[2017-07-25 05:52] LABS: BASOPHIL # 0.1 10^3/ul (0.0-0.1); BASOPHILS % 1.1 % (0.0-2.0); EOSINOPHILS # 0.2 10^3/ul (0.0-0.5); EOSINOPHILS % 2.4 % (0.0-7.0); HEMATOCRIT 28.1 % (37.0-47.0); HEMOGLOBIN 9.1 g/dl (12.0-16.0); LYMPHOCYTES # 0.7 10^3/ul (0.8-2.9); LYMPHOCYTES % 11.2 % (15.0-51.0); MEAN CORPUSCULAR HEMOGLOBIN 29.3 pg (29.0-33.0); MEAN CORPUSCULAR HGB CONC 32.4 g/dl (32.0-37.0); MEAN CORPUSCULAR VOLUME 90.4 fl (82.0-101.0); MEAN PLATELET VOLUME 10.1 fl (7.4-10.4); MONOCYTE # 1.1 10^3/ul (0.3-0.9); MONOCYTES % 18.2 % (0.0-11.0); NEUTROPHIL # 4.1 10^3/ul (1.6-7.5); NEUTROPHILS % 66.9 % (39.0-77.0); PLATELET COUNT 171 10^3/UL (140-415); RED BLOOD COUNT 3.11 10^6/ul (4.20-5.40)
[2017-07-25 05:52] LABS: WHITE BLOOD COUNT 6.2 10^3/ul (4.8-10.8)
[2017-07-25 06:09] LABS: ANION GAP 19 (8-16); BLOOD UREA NITROGEN 42 mg/dl (7-20); CALCIUM 8.8 mg/dl (8.4-10.2); CARBON DIOXIDE 26 mmol/L (21-31); CHLORIDE 99 mmol/L (97-110); CREATININE 4.08 mg/dl (0.44-1.00); GLUCOSE 126 mg/dl (70-220); SODIUM 139 mmol/L (135-144)
[2017-07-25] MEDS: MAGNESIUM CITRATE 300 ML BTL PO (07:30)
[2017-07-25] MEDS: BISACODYL 10 MG SUPP PR (07:30)
[2017-07-25] MEDS: FERROUS SULFATE (EC) 325 MG TAB PO (08:00)
[2017-07-25] MEDS: DULOXETINE 30 MG CAP DR PO (08:00)
[2017-07-25] MEDS: SENNA TAB PO ×3 (08:00→20:19)
[2017-07-25] MEDS: SEVELAMER 400 MG TAB PO ×3 (08:00→17:21)
[2017-07-25] MEDS: CALCITRIOL 0.25 MCG CAP PO (08:00)
[2017-07-25] MEDS: GABAPENTIN 300 MG CAP PO ×3 (08:01→20:18)
[2017-07-25] MEDS: INSULIN ASPART [NOVOLOG] 3 ML PEN SC ×4 (08:08→20:39)
[2017-07-25] MEDS: POLYETHYLENE GLYCOL 17 GM PACKET PO ×2 (08:10→20:19)
[2017-07-25] MEDS: ASPIRIN 81 MG TAB PO (08:10)
[2017-07-25] MEDS: LACTULOSE 30ML CUP PO (08:11)
[2017-07-25] MEDS: LOSARTAN 50 MG TAB PO (08:41)
[2017-07-25] MEDS: METOPROLOL (XL) 25 MG TAB PO (08:42)
[2017-07-25] MEDS: AMLODIPINE 10 MG TAB PO (08:42)
[2017-07-25] MEDS: traMADol 50 MG TAB PO ×3 (08:58→22:58)
[2017-07-25] MEDS: ALBUTEROL/IPRATROPIUM (NEB) 3 ML AMP HHN ×3 (12:15→19:47)
[2017-07-25] MEDS: ALPRAZOLAM 0.25 MG TAB PO (16:05)
[2017-07-25] MEDS: TRIAMCINOLONE ACET 0.1% 15 GM CR TOP ×2 (17:51→23:52)
[2017-07-25] MEDS: ROPINIROLE 0.25 MG TAB PO (20:18)
[2017-07-25] MEDS: DIPHENHYDRAMINE 25 MG CAP PO (22:09)
[2017-07-26] MEDS: ALBUTEROL/IPRATROPIUM (NEB) 3 ML AMP HHN ×2 (00:22→23:33)
[2017-07-26] MEDS: ACCU-CHEK XX (01:04)
[2017-07-26] MEDS: morphine LIQ (10 MG/5 ML) CUP PO (02:42)
[2017-07-26 06:25] LABS: ADD MAN DIFF? NO
[2017-07-26 06:28] LABS: WHITE BLOOD COUNT 7.1 10^3/ul (4.8-10.8)
[2017-07-26 06:28] LABS: BASOPHIL # 0.1 10^3/ul (0.0-0.1); BASOPHILS % 0.7 % (0.0-2.0); EOSINOPHILS # 0.3 10^3/ul (0.0-0.5); EOSINOPHILS % 3.7 % (0.0-7.0); HEMATOCRIT 30.7 % (37.0-47.0); HEMOGLOBIN 9.6 g/dl (12.0-16.0); LYMPHOCYTES # 0.9 10^3/ul (0.8-2.9); LYMPHOCYTES % 13.2 % (15.0-51.0); MEAN CORPUSCULAR HEMOGLOBIN 28.7 pg (29.0-33.0); MEAN CORPUSCULAR HGB CONC 31.3 g/dl (32.0-37.0); MEAN CORPUSCULAR VOLUME 91.6 fl (82.0-101.0); MEAN PLATELET VOLUME 9.7 fl (7.4-10.4); MONOCYTE # 1.2 10^3/ul (0.3-0.9); MONOCYTES % 16.6 % (0.0-11.0); NEUTROPHIL # 4.6 10^3/ul (1.6-7.5); NEUTROPHILS % 65.7 % (39.0-77.0); PLATELET COUNT 194 10^3/UL (140-415); RED BLOOD COUNT 3.35 10^6/ul (4.20-5.40); RED CELL DISTRIBUTION WIDTH 16.2 % (11.5-14.5)
[2017-07-26 06:56] LABS: ANION GAP 18 (8-16); BLOOD UREA NITROGEN 29 mg/dl (7-20); CALCIUM 8.8 mg/dl (8.4-10.2); CARBON DIOXIDE 29 mmol/L (21-31); CHLORIDE 99 mmol/L (97-110); GLUCOSE 128 mg/dl (70-220); POTASSIUM 4.1 mmol/L (3.5-5.1); SODIUM 142 mmol/L (135-144)
[2017-07-26] MEDS: MAGNESIUM CITRATE 300 ML BTL PO (07:30)
[2017-07-26] MEDS: BISACODYL 10 MG SUPP PR (07:30)
[2017-07-26] MEDS: ASPIRIN 81 MG TAB PO (08:04)
[2017-07-26] MEDS: INSULIN ASPART [NOVOLOG] 3 ML PEN SC ×4 (08:04→21:00)
[2017-07-26] MEDS: SEVELAMER 400 MG TAB PO ×3 (08:04→17:25)
[2017-07-26] MEDS: CALCITRIOL 0.25 MCG CAP PO (08:06)
[2017-07-26] MEDS: LOSARTAN 50 MG TAB PO (08:06)
[2017-07-26] MEDS: METOPROLOL (XL) 25 MG TAB PO (08:07)
[2017-07-26] MEDS: GABAPENTIN 300 MG CAP PO ×3 (08:07→21:21)
[2017-07-26] MEDS: DULOXETINE 30 MG CAP DR PO (08:07)
[2017-07-26] MEDS: POLYETHYLENE GLYCOL 17 GM PACKET PO ×2 (08:07→21:00)
[2017-07-26] MEDS: AMLODIPINE 10 MG TAB PO (08:07)
[2017-07-26] MEDS: FERROUS SULFATE (EC) 325 MG TAB PO (08:07)
[2017-07-26] MEDS: LACTULOSE 30ML CUP PO (08:08)
[2017-07-26] MEDS: SENNA TAB PO ×2 (09:00→21:00)
[2017-07-26] MEDS: DIPHENHYDRAMINE 25 MG CAP PO (11:25)
[2017-07-26] MEDS ORDERED: VITAMIN A & D 5 GM OINT PACKET TOP (16:42)
[2017-07-26] MEDS: hydrOXYzine HCL 25 MG TAB PO (16:45)
[2017-07-26] MEDS: ATORVASTATIN 20 MG TAB PO (21:21)
[2017-07-26] MEDS: ROPINIROLE 0.25 MG TAB PO (21:21)
[2017-07-26] MEDS: traMADol 50 MG TAB PO (21:23)
[2017-07-27] MEDS: ACCU-CHEK XX (00:06)
[2017-07-27] MEDS ORDERED: VITAMIN A & D 5 GM OINT PACKET TOP (02:31)
[2017-07-27] MEDS: ALPRAZOLAM 0.25 MG TAB PO (03:04)
[2017-07-27] MEDS: hydrALAzine 20 MG INJ IV (03:04)
[2017-07-27 06:17] LABS: ADD MAN DIFF? NO
[2017-07-27 06:23] LABS: BASOPHIL # 0.1 10^3/ul (0.0-0.1); BASOPHILS % 0.9 % (0.0-2.0); EOSINOPHILS # 0.4 10^3/ul (0.0-0.5); EOSINOPHILS % 4.9 % (0.0-7.0); HEMATOCRIT 29.1 % (37.0-47.0); HEMOGLOBIN 9.1 g/dl (12.0-16.0); LYMPHOCYTES % 11.9 % (15.0-51.0); MEAN CORPUSCULAR HEMOGLOBIN 28.3 pg (29.0-33.0); MEAN CORPUSCULAR HGB CONC 31.3 g/dl (32.0-37.0); MEAN CORPUSCULAR VOLUME 90.7 fl (82.0-101.0); MEAN PLATELET VOLUME 9.4 fl (7.4-10.4); MONOCYTE # 1.1 10^3/ul (0.3-0.9); MONOCYTES % 13.3 % (0.0-11.0); NEUTROPHIL # 5.5 10^3/ul (1.6-7.5); NEUTROPHILS % 68.6 % (39.0-77.0); PLATELET COUNT 200 10^3/UL (140-415); RED BLOOD COUNT 3.21 10^6/ul (4.20-5.40); RED CELL DISTRIBUTION WIDTH 15.9 % (11.5-14.5)
[2017-07-27 06:52] LABS: ANION GAP 22 (8-16); BLOOD UREA NITROGEN 52 mg/dl (7-20); CALCIUM 8.8 mg/dl (8.4-10.2); CARBON DIOXIDE 24 mmol/L (21-31); CHLORIDE 98 mmol/L (97-110); CREATININE 5.77 mg/dl (0.44-1.00); GLUCOSE 155 mg/dl (70-220); POTASSIUM 5.4 mmol/L (3.5-5.1); SODIUM 139 mmol/L (135-144)
[2017-07-27] MEDS: BISACODYL 10 MG SUPP PR (07:30)
[2017-07-27] MEDS: MAGNESIUM CITRATE 300 ML BTL PO (07:30)
[2017-07-27] MEDS: INSULIN ASPART [NOVOLOG] 3 ML PEN SC ×4 (08:03→20:17)
[2017-07-27] MEDS: POLYETHYLENE GLYCOL 17 GM PACKET PO ×2 (09:00→21:00)
[2017-07-27] MEDS: LACTULOSE 30ML CUP PO (09:00)
[2017-07-27] MEDS: ASPIRIN 81 MG TAB PO ×2 (09:00→09:47)
[2017-07-27] MEDS: SENNA TAB PO ×2 (09:00→21:00)
[2017-07-27] MEDS: GABAPENTIN 300 MG CAP PO ×3 (09:46→23:57)
[2017-07-27] MEDS: SEVELAMER 400 MG TAB PO ×3 (09:46→17:34)
[2017-07-27] MEDS: CALCITRIOL 0.25 MCG CAP PO (09:46)
[2017-07-27] MEDS: DULOXETINE 30 MG CAP DR PO (09:46)
[2017-07-27] MEDS: AMLODIPINE 10 MG TAB PO (09:46)
[2017-07-27] MEDS: FERROUS SULFATE (EC) 325 MG TAB PO (09:46)
[2017-07-27] MEDS: METOPROLOL (XL) 25 MG TAB PO (09:47)
[2017-07-27] MEDS: LOSARTAN 50 MG TAB PO (09:47)
[2017-07-27] MEDS: hydrOXYzine HCL 25 MG TAB PO (09:51)
[2017-07-27] MEDS: traMADol 50 MG TAB PO ×3 (09:51→23:58)
[2017-07-27] MEDS: morphine LIQ (10 MG/5 ML) CUP PO (19:37)
[2017-07-27] MEDS: DIPHENHYDRAMINE 25 MG CAP PO (21:23)
[2017-07-27] MEDS: HEPARIN 1000 UNITS/ML 10 ML INJ CATHETER (23:37)
[2017-07-27] MEDS: ATORVASTATIN 20 MG TAB PO (23:56)
[2017-07-27] MEDS: ROPINIROLE 0.25 MG TAB PO (23:57)
[2017-07-28] MEDS: ACCU-CHEK XX (01:09)
[2017-07-28] MEDS: ALPRAZOLAM 0.25 MG TAB PO (05:44)
[2017-07-28 06:26] LABS: ADD MAN DIFF? NO
[2017-07-28 06:33] LABS: BASOPHIL # 0.1 10^3/ul (0.0-0.1); BASOPHILS % 1.1 % (0.0-2.0); EOSINOPHILS # 0.3 10^3/ul (0.0-0.5); EOSINOPHILS % 4.9 % (0.0-7.0); HEMATOCRIT 29.4 % (37.0-47.0); HEMOGLOBIN 9.4 g/dl (12.0-16.0); LYMPHOCYTES # 0.9 10^3/ul (0.8-2.9); LYMPHOCYTES % 12.6 % (15.0-51.0); MEAN CORPUSCULAR HEMOGLOBIN 28.8 pg (29.0-33.0); MEAN CORPUSCULAR VOLUME 90.2 fl (82.0-101.0); MEAN PLATELET VOLUME 9.6 fl (7.4-10.4); MONOCYTE # 0.8 10^3/ul (0.3-0.9); MONOCYTES % 11.7 % (0.0-11.0); NEUTROPHIL # 4.9 10^3/ul (1.6-7.5); NEUTROPHILS % 69.3 % (39.0-77.0); PLATELET COUNT 227 10^3/UL (140-415); RED BLOOD COUNT 3.26 10^6/ul (4.20-5.40)
[2017-07-28 07:03] LABS: ANION GAP 20 (8-16); BLOOD UREA NITROGEN 34 mg/dl (7-20); CARBON DIOXIDE 27 mmol/L (21-31); CHLORIDE 98 mmol/L (97-110); CREATININE 3.79 mg/dl (0.44-1.00); GLUCOSE 119 mg/dl (70-220); POTASSIUM 4.5 mmol/L (3.5-5.1); SODIUM 140 mmol/L (135-144)
[2017-07-28] MEDS: BISACODYL 10 MG SUPP PR (07:30)
[2017-07-28] MEDS: MAGNESIUM CITRATE 300 ML BTL PO (07:30)
[2017-07-28] MEDS: INSULIN ASPART [NOVOLOG] 3 ML PEN SC ×4 (08:15→21:00)
[2017-07-28] MEDS: POLYETHYLENE GLYCOL 17 GM PACKET PO ×2 (09:00→21:00)
[2017-07-28] MEDS: LACTULOSE 30ML CUP PO (09:00)
[2017-07-28] MEDS: traMADol 50 MG TAB PO ×2 (09:10→18:27)
[2017-07-28] MEDS: ASPIRIN 81 MG TAB PO (09:10)
[2017-07-28] MEDS: DULOXETINE 30 MG CAP DR PO (09:10)
[2017-07-28] MEDS: CALCITRIOL 0.25 MCG CAP PO (09:10)
[2017-07-28] MEDS: SEVELAMER 400 MG TAB PO ×3 (09:10→18:22)
[2017-07-28] MEDS: GABAPENTIN 300 MG CAP PO ×3 (09:10→21:14)
[2017-07-28] MEDS: FERROUS SULFATE (EC) 325 MG TAB PO (09:10)
[2017-07-28] MEDS: LOSARTAN 50 MG TAB PO (09:11)
[2017-07-28] MEDS: AMLODIPINE 10 MG TAB PO (09:11)
[2017-07-28] MEDS: SENNA TAB PO ×2 (09:11→21:14)
[2017-07-28] MEDS: hydrOXYzine HCL 25 MG TAB PO (09:11)
[2017-07-28] MEDS: METOPROLOL (XL) 25 MG TAB PO (09:11)
[2017-07-28] MEDS: VANCOMYCIN 1 GM 250 ML IVPB (11:22)
[2017-07-28] MEDS: ROPINIROLE 0.25 MG TAB PO (21:13)
[2017-07-28] MEDS: ATORVASTATIN 20 MG TAB PO (21:13)
[2017-07-29] MEDS: ACCU-CHEK XX (02:00)
[2017-07-29] MEDS: hydrALAzine 20 MG INJ IV ×2 (02:31→20:16)
[2017-07-29] MEDS: traMADol 50 MG TAB PO ×3 (02:39→20:20)
[2017-07-29] MEDS: morphine LIQ (10 MG/5 ML) CUP PO ×2 (06:25→21:50)
[2017-07-29] MEDS: MAGNESIUM CITRATE 300 ML BTL PO (07:30)
[2017-07-29] MEDS: BISACODYL 10 MG SUPP PR (07:30)
[2017-07-29] MEDS: INSULIN ASPART [NOVOLOG] 3 ML PEN SC ×4 (08:15→20:24)
[2017-07-29] MEDS: SEVELAMER 400 MG TAB PO ×3 (08:25→17:51)
[2017-07-29] MEDS: LOSARTAN 50 MG TAB PO (08:25)
[2017-07-29] MEDS: ASPIRIN 81 MG TAB PO (08:25)
[2017-07-29] MEDS: FERROUS SULFATE (EC) 325 MG TAB PO (08:26)
[2017-07-29] MEDS: AMLODIPINE 10 MG TAB PO (08:26)
[2017-07-29] MEDS: CALCITRIOL 0.25 MCG CAP PO (08:26)
[2017-07-29] MEDS: METOPROLOL (XL) 25 MG TAB PO (08:27)
[2017-07-29] MEDS: GABAPENTIN 300 MG CAP PO ×3 (08:27→20:15)
[2017-07-29] MEDS: DULOXETINE 30 MG CAP DR PO (08:27)
[2017-07-29] MEDS: LACTULOSE 30ML CUP PO (08:27)
[2017-07-29] MEDS: SENNA TAB PO ×2 (08:28→20:16)
[2017-07-29] MEDS: POLYETHYLENE GLYCOL 17 GM PACKET PO ×2 (08:28→20:20)
[2017-07-29] MEDS: EPOETIN 10000 UNITS/1 ML INJ (ESRD) SC (17:27)
[2017-07-29] MEDS: ROPINIROLE 0.25 MG TAB PO (20:16)
[2017-07-29] MEDS: ATORVASTATIN 20 MG TAB PO (20:16)
[2017-07-30] MEDS: ACCU-CHEK XX (02:00)
[2017-07-30] MEDS: hydrALAzine 20 MG INJ IV (04:32)
[2017-07-30] MEDS: morphine LIQ (10 MG/5 ML) CUP PO ×2 (04:33→10:40)
[2017-07-30 06:08] LABS: ADD MAN DIFF? NO
[2017-07-30 06:16] LABS: WHITE BLOOD COUNT 8.1 10^3/ul (4.8-10.8)
[2017-07-30 06:16] LABS: BASOPHIL # 0.1 10^3/ul (0.0-0.1); BASOPHILS % 1.6 % (0.0-2.0); EOSINOPHILS # 0.5 10^3/ul (0.0-0.5); EOSINOPHILS % 6.4 % (0.0-7.0); HEMATOCRIT 31.6 % (37.0-47.0); HEMOGLOBIN 10.3 g/dl (12.0-16.0); LYMPHOCYTES % 11.8 % (15.0-51.0); MEAN CORPUSCULAR HEMOGLOBIN 28.8 pg (29.0-33.0); MEAN CORPUSCULAR HGB CONC 32.6 g/dl (32.0-37.0); MEAN CORPUSCULAR VOLUME 88.3 fl (82.0-101.0); MEAN PLATELET VOLUME 9.7 fl (7.4-10.4); MONOCYTE # 0.8 10^3/ul (0.3-0.9); NEUTROPHIL # 5.7 10^3/ul (1.6-7.5); NEUTROPHILS % 69.8 % (39.0-77.0); PLATELET COUNT 239 10^3/UL (140-415); RED BLOOD COUNT 3.58 10^6/ul (4.20-5.40)
[2017-07-30 06:46] LABS: ANION GAP 26 (8-16); BLOOD UREA NITROGEN 80 mg/dl (7-20); CALCIUM 9.4 mg/dl (8.4-10.2); CARBON DIOXIDE 18 mmol/L (21-31); CHLORIDE 95 mmol/L (97-110); GLUCOSE 121 mg/dl (70-220); PHOSPHORUS 9.3 mg/dl (2.5-4.9); POTASSIUM 5.6 mmol/L (3.5-5.1); SODIUM 133 mmol/L (135-144)
[2017-07-30] MEDS: MAGNESIUM CITRATE 300 ML BTL PO (07:30)
[2017-07-30] MEDS: BISACODYL 10 MG SUPP PR (07:30)
[2017-07-30] MEDS: INSULIN ASPART [NOVOLOG] 3 ML PEN SC ×4 (08:11→20:45)
[2017-07-30] MEDS: LACTULOSE 30ML CUP PO (08:12)
[2017-07-30] MEDS: POLYETHYLENE GLYCOL 17 GM PACKET PO ×2 (08:12→20:48)
[2017-07-30] MEDS: SENNA TAB PO ×2 (08:13→20:48)
[2017-07-30] MEDS: METOPROLOL (XL) 25 MG TAB PO (09:00)
[2017-07-30] MEDS: LOSARTAN 50 MG TAB PO ×2 (09:00→15:41)
[2017-07-30] MEDS: DULOXETINE 30 MG CAP DR PO (09:06)
[2017-07-30] MEDS: GABAPENTIN 300 MG CAP PO ×3 (09:06→20:40)
[2017-07-30] MEDS: FERROUS SULFATE (EC) 325 MG TAB PO (09:06)
[2017-07-30] MEDS: ASPIRIN 81 MG TAB PO (09:06)
[2017-07-30] MEDS: AMLODIPINE 10 MG TAB PO (09:07)
[2017-07-30] MEDS: CALCITRIOL 0.25 MCG CAP PO (12:15)
[2017-07-30] MEDS: DIPHENHYDRAMINE 25 MG CAP PO (12:15)
[2017-07-30] MEDS: HEPARIN 1000 UNITS/ML 10 ML INJ CATHETER (14:40)
[2017-07-30] MEDS: SEVELAMER 800 MG TAB PO ×2 (14:42→17:51)
[2017-07-30] MEDS: traMADol 50 MG TAB PO (20:41)
[2017-07-30] MEDS: ATORVASTATIN 20 MG TAB PO (20:41)
[2017-07-30] MEDS: ROPINIROLE 0.25 MG TAB PO (20:46)
[2017-07-31] MEDS: morphine LIQ (10 MG/5 ML) CUP PO ×3 (00:32→22:47)
[2017-07-31] MEDS: ALPRAZOLAM 0.25 MG TAB PO ×2 (01:58→21:22)
[2017-07-31] MEDS: ACCU-CHEK XX (02:02)
[2017-07-31] MEDS: traMADol 50 MG TAB PO (05:11)
[2017-07-31] MEDS: MAGNESIUM CITRATE 300 ML BTL PO (07:30)
[2017-07-31] MEDS: BISACODYL 10 MG SUPP PR (07:30)
[2017-07-31] MEDS: INSULIN ASPART [NOVOLOG] 3 ML PEN SC ×4 (08:03→21:21)
[2017-07-31] MEDS: ASPIRIN 81 MG TAB PO (08:05)
[2017-07-31] MEDS: SEVELAMER 800 MG TAB PO ×3 (08:05→17:29)
[2017-07-31] MEDS: LOSARTAN 50 MG TAB PO (08:05)
[2017-07-31] MEDS: FERROUS SULFATE (EC) 325 MG TAB PO (08:06)
[2017-07-31] MEDS: POLYETHYLENE GLYCOL 17 GM PACKET PO ×2 (08:06→21:00)
[2017-07-31] MEDS: LACTULOSE 30ML CUP PO (08:06)
[2017-07-31] MEDS: DULOXETINE 30 MG CAP DR PO (08:06)
[2017-07-31] MEDS: GABAPENTIN 300 MG CAP PO ×3 (08:06→21:17)
[2017-07-31] MEDS: METOPROLOL (XL) 25 MG TAB PO (08:07)
[2017-07-31] MEDS: CALCITRIOL 0.25 MCG CAP PO (08:07)
[2017-07-31] MEDS: AMLODIPINE 10 MG TAB PO (08:07)
[2017-07-31] MEDS: SENNA TAB PO ×2 (08:07→21:00)
[2017-07-31] MEDS: EPOETIN 10000 UNITS/1 ML INJ (ESRD) SC (17:29)
[2017-07-31] MEDS: ATORVASTATIN 20 MG TAB PO (21:17)
[2017-07-31] MEDS: ROPINIROLE 0.25 MG TAB PO (21:17)
[2017-08-01] MEDS: ACCU-CHEK XX (02:00)
[2017-08-01] MEDS: BISACODYL 10 MG SUPP PR (07:30)
[2017-08-01] MEDS: MAGNESIUM CITRATE 300 ML BTL PO (07:30)
[2017-08-01] MEDS: INSULIN ASPART [NOVOLOG] 3 ML PEN SC ×4 (08:15→20:53)
[2017-08-01] MEDS: SEVELAMER 800 MG TAB PO ×3 (08:24→17:21)
[2017-08-01] MEDS: DULOXETINE 30 MG CAP DR PO (08:25)
[2017-08-01] MEDS: LACTULOSE 30ML CUP PO (08:25)
[2017-08-01] MEDS: ASPIRIN 81 MG TAB PO (08:25)
[2017-08-01] MEDS: LOSARTAN 50 MG TAB PO (08:25)
[2017-08-01] MEDS: AMLODIPINE 10 MG TAB PO (08:26)
[2017-08-01] MEDS: GABAPENTIN 300 MG CAP PO ×3 (08:26→20:48)
[2017-08-01] MEDS: FERROUS SULFATE (EC) 325 MG TAB PO (08:26)
[2017-08-01] MEDS: CALCITRIOL 0.25 MCG CAP PO (08:26)
[2017-08-01] MEDS: METOPROLOL (XL) 25 MG TAB PO (08:26)
[2017-08-01] MEDS: POLYETHYLENE GLYCOL 17 GM PACKET PO ×2 (08:26→20:49)
[2017-08-01] MEDS: SENNA TAB PO ×2 (08:26→20:49)
[2017-08-01] MEDS ORDERED: MIDAZOLAM 1 MG/ML 2 ML INJ (10:39)
[2017-08-01] MEDS ORDERED: IODIXANOL LOCM 100 ML BTL (10:39)
[2017-08-01] MEDS ORDERED: LIDOCAINE 1% (MDV) 20 ML INJ (10:39)
[2017-08-01] MEDS ORDERED: HEPARIN 1000 UNITS/ML 10 ML INJ (10:39)
[2017-08-01] MEDS ORDERED: SOD CHLORIDE 0.9% 500 ML (10:40)
[2017-08-01] MEDS ORDERED: FENTAnyl 50 MCG/ML VIAL (10:40)
[2017-08-01] MEDS ORDERED: IODIXANOL LOCM 50 ML BTL (11:23)
[2017-08-01] MEDS: ALTEPLASE (CATHFLO) 2 MG INJ CATHETER (12:53)
[2017-08-01] MEDS: morphine LIQ (10 MG/5 ML) CUP PO (14:14)
[2017-08-01] MEDS: morphine 2 MG INJ IV ×2 (18:30→23:29)
[2017-08-01] MEDS: ROPINIROLE 0.25 MG TAB PO (20:48)
[2017-08-01] MEDS: ATORVASTATIN 20 MG TAB PO (20:48)
[2017-08-02] MEDS: ALPRAZOLAM 0.25 MG TAB PO (00:57)
[2017-08-02] MEDS: ACCU-CHEK XX ×2 (02:00→22:12)
[2017-08-02] MEDS: DIPHENHYDRAMINE 25 MG CAP PO ×2 (02:01→23:03)
[2017-08-02] MEDS: hydrALAzine 20 MG INJ IV (02:02)
[2017-08-02 06:11] LABS: ADD MAN DIFF? NO
[2017-08-02 06:23] LABS: WHITE BLOOD COUNT 7.6 10^3/ul (4.8-10.8)
[2017-08-02 06:23] LABS: BASOPHIL # 0.1 10^3/ul (0.0-0.1); BASOPHILS % 1.7 % (0.0-2.0); EOSINOPHILS # 0.4 10^3/ul (0.0-0.5); EOSINOPHILS % 4.6 % (0.0-7.0); HEMATOCRIT 27.4 % (37.0-47.0); HEMOGLOBIN 9.2 g/dl (12.0-16.0); LYMPHOCYTES # 1.1 10^3/ul (0.8-2.9); MEAN CORPUSCULAR HEMOGLOBIN 30.6 pg (29.0-33.0); MEAN CORPUSCULAR HGB CONC 33.6 g/dl (32.0-37.0); MEAN PLATELET VOLUME 8.9 fl (7.4-10.4); MONOCYTES % 13.2 % (0.0-11.0); NEUTROPHIL # 4.9 10^3/ul (1.6-7.5); NEUTROPHILS % 64.3 % (39.0-77.0); NUCLEATED RED BLOOD CELLS% 0.4 /100WBC (0.0-0.0); PLATELET COUNT 221 10^3/UL (140-415); RED BLOOD COUNT 3.01 10^6/ul (4.20-5.40); RED CELL DISTRIBUTION WIDTH 16.7 % (11.5-14.5)
[2017-08-02 06:23] LABS: HEMOGLOBIN 9.3 g/dl (12.0-16.0)
[2017-08-02] MEDS: MAGNESIUM CITRATE 300 ML BTL PO (07:30)
[2017-08-02] MEDS: BISACODYL 10 MG SUPP PR (07:30)
[2017-08-02] MEDS: INSULIN ASPART [NOVOLOG] 3 ML PEN SC ×4 (08:00→21:00)
[2017-08-02] MEDS: LACTULOSE 30ML CUP PO (08:30)
[2017-08-02] MEDS: ASPIRIN 81 MG TAB PO (08:30)
[2017-08-02] MEDS: SEVELAMER 800 MG TAB PO ×3 (08:30→17:38)
[2017-08-02] MEDS: FERROUS SULFATE (EC) 325 MG TAB PO (08:30)
[2017-08-02] MEDS: DULOXETINE 30 MG CAP DR PO (08:30)
[2017-08-02] MEDS: LOSARTAN 50 MG TAB PO (08:30)
[2017-08-02] MEDS: CALCITRIOL 0.25 MCG CAP PO (08:31)
[2017-08-02] MEDS: POLYETHYLENE GLYCOL 17 GM PACKET PO ×2 (08:31→21:00)
[2017-08-02] MEDS: AMLODIPINE 10 MG TAB PO (08:31)
[2017-08-02] MEDS: GABAPENTIN 300 MG CAP PO ×3 (08:31→20:28)
[2017-08-02] MEDS: METOPROLOL (XL) 25 MG TAB PO (08:31)
[2017-08-02] MEDS: SENNA TAB PO ×2 (08:31→21:00)
[2017-08-02] MEDS: morphine 2 MG INJ IV (10:27)
[2017-08-02] MEDS: HEPARIN 1000 UNITS/ML 10 ML INJ CATHETER (15:24)
[2017-08-02] MEDS ORDERED: VITAMIN A & D 5 GM OINT PACKET TOP (16:10)
[2017-08-02] MEDS: HYDROmorphONE 2 MG TAB PO ×2 (16:39→23:03)
[2017-08-02] MEDS: EPOETIN 10000 UNITS/1 ML INJ (ESRD) SC (16:40)
[2017-08-02] MEDS: ROPINIROLE 0.25 MG TAB PO (20:28)
[2017-08-02] MEDS: ATORVASTATIN 20 MG TAB PO (20:28)
[2017-08-02] MEDS: traMADol 50 MG TAB PO (20:36)
[2017-08-03] MEDS: hydrALAzine 20 MG INJ IV (02:27)
[2017-08-03] MEDS: traMADol 50 MG TAB PO ×2 (02:39→09:52)
[2017-08-03] MEDS: HYDROmorphONE 2 MG TAB PO ×2 (05:44→20:44)
[2017-08-03] MEDS: MAGNESIUM CITRATE 300 ML BTL PO (07:30)
[2017-08-03] MEDS: BISACODYL 10 MG SUPP PR (07:30)
[2017-08-03] MEDS: INSULIN ASPART [NOVOLOG] 3 ML PEN SC ×4 (07:55→20:43)
[2017-08-03] MEDS: SENNA TAB PO ×2 (09:00→20:39)
[2017-08-03] MEDS: SEVELAMER 800 MG TAB PO ×3 (09:00→17:28)
[2017-08-03] MEDS: POLYETHYLENE GLYCOL 17 GM PACKET PO ×2 (09:00→20:39)
[2017-08-03] MEDS: LACTULOSE 30ML CUP PO (09:00)
[2017-08-03] MEDS: CALCITRIOL 0.25 MCG CAP PO (09:01)
[2017-08-03] MEDS: GABAPENTIN 300 MG CAP PO ×3 (09:01→20:38)
[2017-08-03] MEDS: AMLODIPINE 10 MG TAB PO (09:01)
[2017-08-03] MEDS: FERROUS SULFATE (EC) 325 MG TAB PO (09:01)
[2017-08-03] MEDS: DULOXETINE 30 MG CAP DR PO (09:01)
[2017-08-03] MEDS: LOSARTAN 50 MG TAB PO (09:01)
[2017-08-03] MEDS: ASPIRIN 81 MG TAB PO (09:01)
[2017-08-03] MEDS: METOPROLOL (XL) 25 MG TAB PO (09:02)
[2017-08-03] MEDS: ATORVASTATIN 20 MG TAB PO (20:38)
[2017-08-03] MEDS: ROPINIROLE 0.25 MG TAB PO (20:38)
[2017-08-04] MEDS: ACCU-CHEK XX (01:53)
[2017-08-04] MEDS: ALPRAZOLAM 0.25 MG TAB PO (01:58)
[2017-08-04] MEDS: HYDROmorphONE 2 MG TAB PO (05:50)
[2017-08-04 06:12] LABS: ADD MAN DIFF? NO
[2017-08-04 06:25] LABS: BASOPHIL # 0.1 10^3/ul (0.0-0.1); BASOPHILS % 1.4 % (0.0-2.0); EOSINOPHILS # 0.4 10^3/ul (0.0-0.5); EOSINOPHILS % 5.1 % (0.0-7.0); HEMATOCRIT 27.3 % (37.0-47.0); HEMOGLOBIN 9.1 g/dl (12.0-16.0); LYMPHOCYTES % 13.4 % (15.0-51.0); MEAN CORPUSCULAR HEMOGLOBIN 30.4 pg (29.0-33.0); MEAN CORPUSCULAR HGB CONC 33.3 g/dl (32.0-37.0); MEAN CORPUSCULAR VOLUME 91.3 fl (82.0-101.0); MEAN PLATELET VOLUME 9.4 fl (7.4-10.4); MONOCYTE # 0.9 10^3/ul (0.3-0.9); MONOCYTES % 12.4 % (0.0-11.0); NEUTROPHIL # 4.7 10^3/ul (1.6-7.5); NEUTROPHILS % 67.1 % (39.0-77.0); PLATELET COUNT 205 10^3/UL (140-415); RED BLOOD COUNT 2.99 10^6/ul (4.20-5.40); RED CELL DISTRIBUTION WIDTH 17.2 % (11.5-14.5)
[2017-08-04 06:25] LABS: WHITE BLOOD COUNT 7.1 10^3/ul (4.8-10.8)
[2017-08-04 06:37] LABS: ANION GAP 23 (8-16); BLOOD UREA NITROGEN 62 mg/dl (7-20); CALCIUM 9.2 mg/dl (8.4-10.2); CARBON DIOXIDE 20 mmol/L (21-31); CHLORIDE 97 mmol/L (97-110); CREATININE 7.02 mg/dl (0.44-1.00); GLUCOSE 122 mg/dl (70-220); MAGNESIUM 2.1 mg/dl (1.7-2.5); POTASSIUM 5.4 mmol/L (3.5-5.1); SODIUM 135 mmol/L (135-144)
[2017-08-04] MEDS: BISACODYL 10 MG SUPP PR (07:30)
[2017-08-04] MEDS: MAGNESIUM CITRATE 300 ML BTL PO (07:30)
[2017-08-04] MEDS: INSULIN ASPART [NOVOLOG] 3 ML PEN SC ×4 (08:12→20:23)
[2017-08-04] MEDS: AMLODIPINE 10 MG TAB PO (09:00)
[2017-08-04] MEDS: METOPROLOL (XL) 25 MG TAB PO (09:00)
[2017-08-04] MEDS: LACTULOSE 30ML CUP PO (09:00)
[2017-08-04] MEDS: POLYETHYLENE GLYCOL 17 GM PACKET PO ×2 (09:00→20:18)
[2017-08-04] MEDS: SENNA TAB PO ×2 (09:00→20:18)
[2017-08-04] MEDS: LOSARTAN 50 MG TAB PO (09:00)
[2017-08-04] MEDS: ASPIRIN 81 MG TAB PO (09:49)
[2017-08-04] MEDS: DULOXETINE 30 MG CAP DR PO (09:49)
[2017-08-04] MEDS: GABAPENTIN 300 MG CAP PO ×3 (09:49→20:17)
[2017-08-04] MEDS: FERROUS SULFATE (EC) 325 MG TAB PO (09:49)
[2017-08-04] MEDS: CALCITRIOL 0.25 MCG CAP PO (09:49)
[2017-08-04] MEDS: SEVELAMER 800 MG TAB PO ×3 (09:50→17:50)
[2017-08-04] MEDS: traMADol 50 MG TAB PO (11:06)
[2017-08-04] MEDS: HEPARIN 1000 UNITS/ML 10 ML INJ CATHETER (17:49)
[2017-08-04] MEDS: ATORVASTATIN 20 MG TAB PO (20:17)
[2017-08-04] MEDS: ROPINIROLE 0.25 MG TAB PO (20:17)
[2017-08-05] MEDS: HYDROmorphONE 2 MG TAB PO ×2 (00:46→23:00)
[2017-08-05] MEDS: ACCU-CHEK XX (01:34)
[2017-08-05] MEDS: ALPRAZOLAM 0.25 MG TAB PO (01:50)
[2017-08-05] MEDS: hydrALAzine 20 MG INJ IV (02:38)
[2017-08-05 06:03] LABS: HEMOGLOBIN 8.9 g/dl (12.0-16.0)
[2017-08-05 06:03] LABS: HEMATOCRIT 25.6 % (37.0-47.0)
[2017-08-05 06:07] LABS: ANION GAP 18 (8-16); BLOOD UREA NITROGEN 38 mg/dl (7-20); CALCIUM 8.6 mg/dl (8.4-10.2); CARBON DIOXIDE 23 mmol/L (21-31); CHLORIDE 99 mmol/L (97-110); CREATININE 4.83 mg/dl (0.44-1.00); GLUCOSE 132 mg/dl (70-220); PHOSPHORUS 5.2 mg/dl (2.5-4.9); POTASSIUM 4.6 mmol/L (3.5-5.1); SODIUM 135 mmol/L (135-144)
[2017-08-05] MEDS: MAGNESIUM CITRATE 300 ML BTL PO (07:30)
[2017-08-05] MEDS: BISACODYL 10 MG SUPP PR (07:30)
[2017-08-05] MEDS: INSULIN ASPART [NOVOLOG] 3 ML PEN SC ×4 (08:15→21:00)
[2017-08-05] MEDS: GABAPENTIN 300 MG CAP PO ×3 (08:19→20:52)
[2017-08-05] MEDS: DULOXETINE 30 MG CAP DR PO (08:19)
[2017-08-05] MEDS: ASPIRIN 81 MG TAB PO (08:19)
[2017-08-05] MEDS: AMLODIPINE 10 MG TAB PO (08:22)
[2017-08-05] MEDS: LOSARTAN 50 MG TAB PO (08:22)
[2017-08-05] MEDS: FERROUS SULFATE (EC) 325 MG TAB PO (08:23)
[2017-08-05] MEDS: SEVELAMER 800 MG TAB PO ×3 (08:23→17:55)
[2017-08-05] MEDS: METOPROLOL (XL) 25 MG TAB PO ×2 (08:23→20:55)
[2017-08-05] MEDS: CALCITRIOL 0.25 MCG CAP PO (08:23)
[2017-08-05] MEDS: LACTULOSE 30ML CUP PO (08:25)
[2017-08-05] MEDS: POLYETHYLENE GLYCOL 17 GM PACKET PO ×2 (08:29→21:00)
[2017-08-05] MEDS: SENNA TAB PO ×2 (09:00→20:56)
[2017-08-05] MEDS ORDERED: traMADol 50 MG TAB PO (13:30)
[2017-08-05] MEDS: EPOETIN 10000 UNITS/1 ML INJ (ESRD) SC (17:57)
[2017-08-05] MEDS: ROPINIROLE 0.25 MG TAB PO (20:54)
[2017-08-05] MEDS: ATORVASTATIN 20 MG TAB PO (20:54)
[2017-08-05] MEDS: ALBUTEROL/IPRATROPIUM (NEB) 3 ML AMP HHN (21:05)
[2017-08-06] MEDS: ACCU-CHEK XX (02:00)
[2017-08-06] MEDS: ALPRAZOLAM 0.25 MG TAB PO (02:05)
[2017-08-06 05:39] LABS: ADD MAN DIFF? NO
[2017-08-06 05:43] LABS: BASOPHIL # 0.1 10^3/ul (0.0-0.1); BASOPHILS % 1.3 % (0.0-2.0); EOSINOPHILS # 0.4 10^3/ul (0.0-0.5); EOSINOPHILS % 4.8 % (0.0-7.0); HEMATOCRIT 29.5 % (37.0-47.0); HEMOGLOBIN 9.7 g/dl (12.0-16.0); LYMPHOCYTES % 12.1 % (15.0-51.0); MEAN CORPUSCULAR HEMOGLOBIN 29.2 pg (29.0-33.0); MEAN CORPUSCULAR HGB CONC 32.9 g/dl (32.0-37.0); MEAN CORPUSCULAR VOLUME 88.9 fl (82.0-101.0); MEAN PLATELET VOLUME 8.9 fl (7.4-10.4); NEUTROPHIL # 5.5 10^3/ul (1.6-7.5); NEUTROPHILS % 69.2 % (39.0-77.0); PLATELET COUNT 207 10^3/UL (140-415); RED BLOOD COUNT 3.32 10^6/ul (4.20-5.40); RED CELL DISTRIBUTION WIDTH 17.5 % (11.5-14.5)
[2017-08-06 06:55] LABS: ANION GAP 22 (8-16); BLOOD UREA NITROGEN 51 mg/dl (7-20); CALCIUM 8.9 mg/dl (8.4-10.2); CARBON DIOXIDE 19 mmol/L (21-31); CHLORIDE 98 mmol/L (97-110); CREATININE 6.58 mg/dl (0.44-1.00); GLUCOSE 180 mg/dl (70-220); POTASSIUM 4.8 mmol/L (3.5-5.1); SODIUM 134 mmol/L (135-144)
[2017-08-06] MEDS: MAGNESIUM CITRATE 300 ML BTL PO (07:30)
[2017-08-06] MEDS: BISACODYL 10 MG SUPP PR (07:30)
[2017-08-06] MEDS: INSULIN ASPART [NOVOLOG] 3 ML PEN SC ×4 (08:30→21:00)
[2017-08-06] MEDS: SEVELAMER 800 MG TAB PO ×3 (08:31→18:16)
[2017-08-06] MEDS: FERROUS SULFATE (EC) 325 MG TAB PO (08:31)
[2017-08-06] MEDS: ASPIRIN 81 MG TAB PO (08:31)
[2017-08-06] MEDS: CALCITRIOL 0.25 MCG CAP PO (08:32)
[2017-08-06] MEDS: GABAPENTIN 300 MG CAP PO ×3 (08:32→21:23)
[2017-08-06] MEDS: DULOXETINE 30 MG CAP DR PO (08:32)
[2017-08-06] MEDS: LACTULOSE 30ML CUP PO (08:33)
[2017-08-06] MEDS: LOSARTAN 50 MG TAB PO (08:33)
[2017-08-06] MEDS: AMLODIPINE 10 MG TAB PO (08:33)
[2017-08-06] MEDS: POLYETHYLENE GLYCOL 17 GM PACKET PO ×2 (08:33→21:00)
[2017-08-06] MEDS: SENNA TAB PO ×2 (08:34→21:00)
[2017-08-06] MEDS: METOPROLOL (XL) 25 MG TAB PO ×2 (08:34→21:23)
[2017-08-06] MEDS: HYDROmorphONE 2 MG TAB PO ×2 (09:08→15:09)
[2017-08-06] MEDS: ACETAMINOPHEN 325 MG TAB PO (12:44)
[2017-08-06] MEDS: LIDOCAINE 1% (MPF) 30 ML INJ INJ (13:22)
[2017-08-06] MEDS: ATORVASTATIN 20 MG TAB PO (21:22)
[2017-08-06] MEDS: ROPINIROLE 0.25 MG TAB PO (21:22)
[2017-08-07] MEDS: HYDROmorphONE 2 MG TAB PO ×3 (01:08→23:23)
[2017-08-07] MEDS: hydrOXYzine HCL 25 MG TAB PO (01:08)
[2017-08-07] MEDS: ACCU-CHEK XX (02:00)
[2017-08-07] MEDS: ZOLPIDEM 5 MG TAB PO (02:06)
[2017-08-07 06:17] LABS: ADD MAN DIFF? NO
[2017-08-07 06:27] LABS: BASOPHIL # 0.1 10^3/ul (0.0-0.1); BASOPHILS % 1.1 % (0.0-2.0); EOSINOPHILS # 0.2 10^3/ul (0.0-0.5); HEMATOCRIT 32.1 % (37.0-47.0); HEMOGLOBIN 10.7 g/dl (12.0-16.0); LYMPHOCYTES % 12.2 % (15.0-51.0); MEAN CORPUSCULAR HEMOGLOBIN 30.2 pg (29.0-33.0); MEAN CORPUSCULAR HGB CONC 33.3 g/dl (32.0-37.0); MEAN CORPUSCULAR VOLUME 90.7 fl (82.0-101.0); MEAN PLATELET VOLUME 8.9 fl (7.4-10.4); MONOCYTE # 0.9 10^3/ul (0.3-0.9); MONOCYTES % 11.4 % (0.0-11.0); NEUTROPHIL # 5.7 10^3/ul (1.6-7.5); NEUTROPHILS % 71.8 % (39.0-77.0); PLATELET COUNT 215 10^3/UL (140-415); RED BLOOD COUNT 3.54 10^6/ul (4.20-5.40); RED CELL DISTRIBUTION WIDTH 18.2 % (11.5-14.5)
[2017-08-07 06:47] LABS: ANION GAP 24 (8-16); BLOOD UREA NITROGEN 34 mg/dl (7-20); CALCIUM 8.9 mg/dl (8.4-10.2); CARBON DIOXIDE 24 mmol/L (21-31); CHLORIDE 100 mmol/L (97-110); CREATININE 4.67 mg/dl (0.44-1.00); GLUCOSE 219 mg/dl (70-220); POTASSIUM 4.5 mmol/L (3.5-5.1); SODIUM 143 mmol/L (135-144)
[2017-08-07] MEDS: BISACODYL 10 MG SUPP PR (07:30)
[2017-08-07] MEDS: MAGNESIUM CITRATE 300 ML BTL PO (07:30)
[2017-08-07] MEDS: SEVELAMER 800 MG TAB PO ×4 (08:15→17:24)
[2017-08-07] MEDS: LOSARTAN 50 MG TAB PO (08:28)
[2017-08-07] MEDS: DULOXETINE 30 MG CAP DR PO (08:28)
[2017-08-07] MEDS: CALCITRIOL 0.25 MCG CAP PO (08:28)
[2017-08-07] MEDS: AMLODIPINE 10 MG TAB PO (08:29)
[2017-08-07] MEDS: LACTULOSE 30ML CUP PO (08:29)
[2017-08-07] MEDS: GABAPENTIN 300 MG CAP PO ×4 (08:29→21:56)
[2017-08-07] MEDS: ASPIRIN 81 MG TAB PO (08:29)
[2017-08-07] MEDS: METOPROLOL (XL) 25 MG TAB PO (08:29)
[2017-08-07] MEDS: FERROUS SULFATE (EC) 325 MG TAB PO (08:29)
[2017-08-07] MEDS: INSULIN ASPART [NOVOLOG] 3 ML PEN SC ×4 (08:43→22:03)
[2017-08-07] MEDS: SENNA TAB PO ×2 (09:00→21:00)
[2017-08-07] MEDS: POLYETHYLENE GLYCOL 17 GM PACKET PO ×2 (09:00→21:00)
[2017-08-07] MEDS: EPOETIN 10000 UNITS/1 ML INJ (ESRD) SC (17:36)
[2017-08-07] MEDS: hydrALAzine 20 MG INJ IV (17:50)
[2017-08-07] MEDS: METOPROLOL (XL) 50 MG TAB PO (20:13)
[2017-08-07] MEDS: ROPINIROLE 0.25 MG TAB PO (21:56)
[2017-08-07] MEDS: ATORVASTATIN 20 MG TAB PO (21:56)
[2017-08-07] MEDS: ALPRAZOLAM 0.25 MG TAB PO (23:19)
[2017-08-08] MEDS: ZOLPIDEM 5 MG TAB PO (00:28)
== END 2017-08-08 00:30 | DRG 853 ==
LOC: E/R 01:21 → TEL 07-17 13:11 → PP2 07-19 21:04 → MS2 07-19 23:20 → ICU 05:14
PROVIDERS: Internal Medicine
PROC: 03CY3ZZ Extirpation of Matter from Upper Artery, Percutaneous Approach (ICD-10-PCS; principal; 2017-08-01 10:30)
PROC: 05CY3ZZ Extirpation of Matter from Upper Vein, Percutaneous Approach (ICD-10-PCS; 2017-08-01 10:30)
PROC: 3E05317 Introduction of Other Thrombolytic into Peripheral Artery, Percutaneous Approach (ICD-10-PCS; 2017-08-01 10:30)
PROC: 5A09357 Assistance with Respiratory Ventilation, Less than 24 Consecutive Hours, Continuous Positive Airway Pressure (ICD-10-PCS; 2017-08-01 10:33)
PROC: 5A1D70Z Performance of Urinary Filtration, Intermittent, Less than 6 Hours Per Day (ICD-10-PCS; 2017-08-01 10:33)
PROC: 06HM33Z Insertion of Infusion Device into Right Femoral Vein, Percutaneous Approach (ICD-10-PCS; 2017-08-01 10:33)
DX: A41.01 Sepsis due to Methicillin susceptible Staphylococcus aureus (principal); I21.A1 Myocardial infarction type 2; J96.01 Acute respiratory failure with hypoxia; G92 Toxic encephalopathy; I50.31 Acute diastolic (congestive) heart failure; N18.6 End stage renal disease; J18.9 Pneumonia, unspecified organism; E87.2 Acidosis; T82.858A Stenosis of other vascular prosthetic devices, implants and grafts, initial encounter; I16.1 Hypertensive emergency; I13.2 Hypertensive heart and chronic kidney disease with heart failure and with stage 5 chronic kidney disease, or end stage renal disease; T82.838A Hemorrhage due to vascular prosthetic devices, implants and grafts, initial encounter; E87.1 Hypo-osmolality and hyponatremia; T82.868A Thrombosis due to vascular prosthetic devices, implants and grafts, initial encounter; R65.20 Severe sepsis without septic shock; E10.22 Type 1 diabetes mellitus with diabetic chronic kidney disease; Z99.2 Dependence on renal dialysis; Z91.15 Patient's noncompliance with renal dialysis; E10.649 Type 1 diabetes mellitus with hypoglycemia without coma; G20 Parkinson's disease; E78.5 Hyperlipidemia, unspecified; F32.9 Major depressive disorder, single episode, unspecified; E87.5 Hyperkalemia; F41.9 Anxiety disorder, unspecified; D63.1 Anemia in chronic kidney disease; Z78.1 Physical restraint status; E10.40 Type 1 diabetes mellitus with diabetic neuropathy, unspecified; G25.81 Restless legs syndrome
CPT/HCPCS: 36415; 36600; 36902; 36905; 71045; 78452; 80048; 80053; 80061; 80076; 80202; 81001; 82550; 82553; 82803; 82962; 83036; 83605; 83735; 84100; 84443; 84484; 85014; 85018; 85025; 85610; 85730; 86803; 87040; 87081; 87086; 87340; 87400; 90935; 93005; 93017; 93306; 93931; 93970; 94640; 94660; 94664; 96374; 96375; 97161; 99291-25

== ENCOUNTER 2017-11-20 12:57 | Inpatient (IN) | payer OTHER, MEDICARE ==
[2017-11-20] MEDS: SODIUM CHLORIDE 0.9% 1L BAG IV* (13:42)
[2017-11-20] MEDS: LORAZEPAM 2 MG INJ IV (13:42)
[2017-11-20 13:52] LABS: ADD MAN DIFF? NO
[2017-11-20 13:58] LABS: WHITE BLOOD COUNT 6.6 10^3/ul (4.8-10.8)
[2017-11-20 13:58] LABS: BASOPHILS % 0.6 % (0.0-2.0); EOSINOPHILS # 0.1 10^3/ul (0.0-0.5); EOSINOPHILS % 0.9 % (0.0-7.0); HEMATOCRIT 38.7 % (37.0-47.0); HEMOGLOBIN 12.6 g/dl (12.0-16.0); LYMPHOCYTES # 0.9 10^3/ul (0.8-2.9); MEAN CORPUSCULAR HEMOGLOBIN 29.2 pg (29.0-33.0); MEAN CORPUSCULAR HGB CONC 32.6 g/dl (32.0-37.0); MEAN CORPUSCULAR VOLUME 89.8 fl (82.0-101.0); MEAN PLATELET VOLUME 9.3 fl (7.4-10.4); MONOCYTE # 0.7 10^3/ul (0.3-0.9); MONOCYTES % 10.5 % (0.0-11.0); NEUTROPHIL # 4.9 10^3/ul (1.6-7.5); NEUTROPHILS % 74.4 % (39.0-77.0); PLATELET COUNT 185 10^3/UL (140-415); RED BLOOD COUNT 4.31 10^6/ul (4.20-5.40); RED CELL DISTRIBUTION WIDTH 15.5 % (11.5-14.5)
[2017-11-20 14:19] LABS: LACTIC ACID 1.4 mmol/L (0.5-2.0)
[2017-11-20 14:21] LABS: ALANINE AMINOTRANSFERASE 43 IU/L (13-69); ALBUMIN 4.9 g/dl (3.3-4.9); ALBUMIN/GLOBULIN RATIO 1.13; ALKALINE PHOSPHATASE 224 IU/L (42-121); ANION GAP 22 (8-16); ASPARTATE AMINO TRANSFERASE 32 IU/L (15-46); BILIRUBIN,INDIRECT 0.3 mg/dl (0-1.1); BILIRUBIN,TOTAL 0.3 mg/dl (0.2-1.3); BLOOD UREA NITROGEN 33 mg/dl (7-20); CALCIUM 10.4 mg/dl (8.4-10.2); CARBON DIOXIDE 30 mmol/L (21-31); CHLORIDE 92 mmol/L (97-110); GLUCOSE 133 mg/dl (70-220); MAGNESIUM 1.9 mg/dl (1.7-2.5); PHOSPHORUS 6.3 mg/dl (2.5-4.9); POTASSIUM 4.9 mmol/L (3.5-5.1); SODIUM 139 mmol/L (135-144); TOTAL PROTEIN 9.2 g/dl (6.1-8.1)
[2017-11-20 14:31] LABS: TROPONIN-I 0.014 ng/ml (0.000-0.120)
[2017-11-20 14:32] LABS: INR 1.04; PROTIME 13.7 Sec (11.9-14.9); PT RATIO 1.1
[2017-11-20 14:33] LABS: PARTIAL THROMBOPLASTIN TIME 32.6 Sec (25.0-35.0)
[2017-11-20] MEDS ORDERED: ACETAMINOPHEN 325 MG TAB PO (18:30)
[2017-11-20] MEDS ORDERED: ONDANSETRON 4 MG INJ IV (18:30)
[2017-11-20] MEDS ORDERED: NITROGLYCERIN (SL) 0.4 MG TAB SL (18:30)
[2017-11-20] MEDS ORDERED: NACL 0.9% 3 ML SYG IV (18:30)
[2017-11-20 19:01] LABS: LACTIC ACID 0.8 mmol/L (0.5-2.0)
[2017-11-20] MEDS: FAMOTIDINE 20 MG TAB PO (21:00)
[2017-11-20 21:16] LABS: LACTIC ACID 0.9 mmol/L (0.5-2.0)
[2017-11-21] MEDS: hydrALAzine 20 MG INJ IV (00:39)
[2017-11-21] MEDS: METOPROLOL (XL) 25 MG TAB PO ×3 (00:51→23:30)
[2017-11-21] MEDS: HEPARIN 5,000 UNIT/0.5 ML VIAL SC ×3 (00:51→21:00)
[2017-11-21] MEDS ORDERED: DEXTROSE 50% 50 ML SYRINGE IV ×2 (02:00)
[2017-11-21] MEDS ORDERED: GLUCAGON 1 MG INJ IM (02:00)
[2017-11-21] MEDS ORDERED: GLUCOSE GEL 15 GRAM TUBE BUCCAL (02:00)
[2017-11-21] MEDS ORDERED: GLUCOSE GEL 15 GRAM TUBE PO ×2 (02:00)
[2017-11-21] MEDS: ACCU-CHEK XX (02:00)
[2017-11-21] MEDS: SOD CHLORIDE 0.9% 1,000 ML IV (02:42)
[2017-11-21 07:29] LABS: ADD MAN DIFF? NO
[2017-11-21 07:36] LABS: WHITE BLOOD COUNT 6.3 10^3/ul (4.8-10.8)
[2017-11-21 07:36] LABS: BASOPHIL # 0.1 10^3/ul (0.0-0.1); BASOPHILS % 0.8 % (0.0-2.0); EOSINOPHILS # 0.2 10^3/ul (0.0-0.5); EOSINOPHILS % 3.7 % (0.0-7.0); HEMATOCRIT 33.2 % (37.0-47.0); HEMOGLOBIN 11.5 g/dl (12.0-16.0); LYMPHOCYTES # 0.7 10^3/ul (0.8-2.9); LYMPHOCYTES % 10.8 % (15.0-51.0); MEAN CORPUSCULAR HEMOGLOBIN 32.3 pg (29.0-33.0); MEAN CORPUSCULAR HGB CONC 34.6 g/dl (32.0-37.0); MEAN CORPUSCULAR VOLUME 93.3 fl (82.0-101.0); MEAN PLATELET VOLUME 9.6 fl (7.4-10.4); MONOCYTE # 0.6 10^3/ul (0.3-0.9); MONOCYTES % 9.4 % (0.0-11.0); NEUTROPHIL # 4.7 10^3/ul (1.6-7.5); NEUTROPHILS % 74.8 % (39.0-77.0); PLATELET COUNT 165 10^3/UL (140-415); RED BLOOD COUNT 3.56 10^6/ul (4.20-5.40); RED CELL DISTRIBUTION WIDTH 15.4 % (11.5-14.5)
[2017-11-21 07:50] LABS: AMMONIA 18 umol/l (9-30)
[2017-11-21] MEDS: SEVELAMER CARBONATE 0.8 GM PKT PO ×3 (07:55→18:07)
[2017-11-21] MEDS: CALCIUM ACETATE 667 MG CAP PO ×3 (07:55→18:06)
[2017-11-21] MEDS: INSULIN ASPART [NOVOLOG] 3 ML PEN SC ×4 (07:55→21:00)
[2017-11-21 08:05] LABS: ANION GAP 23 (8-16); BLOOD UREA NITROGEN 44 mg/dl (7-20); CALCIUM 9.3 mg/dl (8.4-10.2); CARBON DIOXIDE 26 mmol/L (21-31); CHLORIDE 93 mmol/L (97-110); CREATININE 6.67 mg/dl (0.44-1.00); GLUCOSE 110 mg/dl (70-220); POTASSIUM 4.8 mmol/L (3.5-5.1); SODIUM 137 mmol/L (135-144)
[2017-11-21 08:13] LABS: B-TYPE NATRIURETIC PEPTIDE 26500 PG/ML (0-125)
[2017-11-21 08:34] LABS: THYROID STIMULATING HORMONE 0.886 MIU/L (0.465-4.680)
[2017-11-21] MEDS: FAMOTIDINE 20 MG TAB PO (08:46)
[2017-11-21] MEDS: LOSARTAN 50 MG TAB PO (08:46)
[2017-11-21] MEDS: CALCITRIOL 0.25 MCG CAP PO (08:46)
[2017-11-21] MEDS: FUROSEMIDE 40 MG TAB PO (08:46)
[2017-11-21] MEDS: ASPIRIN 81 MG TAB PO (08:46)
[2017-11-21] MEDS: ROPINIROLE 1 MG TAB PO ×3 (08:46→21:29)
[2017-11-21 09:03] LABS: ADD UMIC YES; UR ASCORBIC ACID NEGATIVE (NEGATIVE); UR BACTERIA FEW /HPF (NONE SEEN); UR BILIRUBIN (Dip) NEGATIVE (NEGATIVE); UR BLOOD (Dip) NEGATIVE (NEGATIVE); UR BUDDING YEAST MODERATE /HPF (NONE SEEN); UR CLARITY CLOUDY (CLEAR); UR COLOR YELLOW (YELLOW); UR GLUCOSE (Dip) 2+ mg/dL (NEGATIVE); UR KETONES (Dip) NEGATIVE (NEGATIVE); UR LEUKOCYTE ESTERASE (Dip) 2+ Leu/ul (NEGATIVE); UR NITRITE (Dip) NEGATIVE (NEGATIVE); UR RBC 5 /HPF (0-5); UR SPECIFIC GRAVITY (Dip) 1.012 (1.003-1.030); UR SQUAMOUS EPITHELIAL CELL MODERATE /HPF (FEW); UR TOTAL PROTEIN (Dip) 3+ mg/dl (NEGATIVE); UR UROBILINOGEN (Dip) NEGATIVE (NEGATIVE); UR WBC 27 /HPF (0-5)
[2017-11-21 09:56] LABS: OPIATES Positive (NEGATIVE)
[2017-11-21 09:59] LABS: AMPHETAMINE/METHAMPHETAMINE Negative (NEGATIVE); BARBITURATES Negative (NEGATIVE); BENZODIAZEPINES Negative (NEGATIVE); CANNABINOIDS Negative (NEGATIVE); COCAINE Negative (NEGATIVE)
[2017-11-21] MEDS ORDERED: GUAIFENESIN/DM 5ML CUP PO (15:00)
[2017-11-21] MEDS: ALBUTEROL 0.083% (NEB) 2.5 MG/3 ML AMP HHN ×2 (16:07→20:49)
[2017-11-21] MEDS ORDERED: VITAMIN A & D 5 GM OINT PACKET TOP ×2 (16:38→18:35)
[2017-11-21] MEDS: LORAZEPAM 2 MG INJ IV (17:25)
[2017-11-21] MEDS: ESCITALOPRAM 10 MG TAB PO (21:29)
[2017-11-21] MEDS: ATORVASTATIN 20 MG TAB PO (21:30)
[2017-11-21] MEDS: GUAIFENESIN/DM 5ML CUP PO (21:30)
[2017-11-21 23:10] LABS: HEPATITIS B SURFACE ANTIGEN NEGATIVE (NEGATIVE)
[2017-11-22 01:29] LABS: CREATINE KINASE 50 IU/L (23-200)
[2017-11-22 01:37] LABS: CK INDEX 4.2; CK-MB 2.09 ng/ml (0.0-2.4); TROPONIN-I 0.026 ng/ml (0.000-0.120)
[2017-11-22] MEDS: LIDOCAINE 1% (MDV) 10 ML INJ INJ (01:45)
[2017-11-22] MEDS: ACCU-CHEK XX (01:52)
[2017-11-22] MEDS: LIDOCAINE 2% JELLY 30 ML TOP (02:17)
[2017-11-22] MEDS: LORAZEPAM 2 MG INJ IV (02:36)
[2017-11-22 06:33] LABS: ADD MAN DIFF? NO
[2017-11-22 06:46] LABS: WHITE BLOOD COUNT 8.6 10^3/ul (4.8-10.8)
[2017-11-22 06:46] LABS: BASOPHILS % 0.3 % (0.0-2.0); EOSINOPHILS # 0.1 10^3/ul (0.0-0.5); EOSINOPHILS % 1.4 % (0.0-7.0); HEMATOCRIT 38.5 % (37.0-47.0); HEMOGLOBIN 13.1 g/dl (12.0-16.0); LYMPHOCYTES # 0.6 10^3/ul (0.8-2.9); LYMPHOCYTES % 7.1 % (15.0-51.0); MEAN CORPUSCULAR VOLUME 91.2 fl (82.0-101.0); MEAN PLATELET VOLUME 9.3 fl (7.4-10.4); MONOCYTE # 0.7 10^3/ul (0.3-0.9); NEUTROPHIL # 7.1 10^3/ul (1.6-7.5); NEUTROPHILS % 82.7 % (39.0-77.0); PLATELET COUNT 189 10^3/UL (140-415); RED BLOOD COUNT 4.22 10^6/ul (4.20-5.40); RED CELL DISTRIBUTION WIDTH 15.5 % (11.5-14.5)
[2017-11-22 07:06] LABS: CK-MB 1.75 ng/ml (0.0-2.4); TROPONIN-I 0.033 ng/ml (0.000-0.120)
[2017-11-22 07:18] LABS: ANION GAP 20 (8-16); BLOOD UREA NITROGEN 22 mg/dl (7-20); CALCIUM 9.5 mg/dl (8.4-10.2); CARBON DIOXIDE 29 mmol/L (21-31); CHLORIDE 95 mmol/L (97-110); CREATININE 3.87 mg/dl (0.44-1.00); GLUCOSE 149 mg/dl (70-220); SODIUM 140 mmol/L (135-144)
[2017-11-22 07:21] LABS: CK INDEX 3.7; CREATINE KINASE 47 IU/L (23-200)
[2017-11-22 07:23] LABS: CHOL/HDL RATIO 2.5 RATIO; HDL CHOLESTEROL 68 mg/dl (37-92); LDL CHOLESTEROL,CALCULATED 63 mg/dl; TRIGLYCERIDES 218 mg/dl (0-149)
[2017-11-22 07:23] LABS: CHOLESTEROL 175 mg/dl (100-200)
[2017-11-22] MEDS: ROPINIROLE 1 MG TAB PO ×3 (08:32→21:39)
[2017-11-22] MEDS: CALCIUM ACETATE 667 MG CAP PO ×3 (08:33→18:02)
[2017-11-22] MEDS: FUROSEMIDE 40 MG TAB PO (08:33)
[2017-11-22] MEDS: CALCITRIOL 0.25 MCG CAP PO (08:33)
[2017-11-22] MEDS: ASPIRIN 81 MG TAB PO (08:34)
[2017-11-22] MEDS: LOSARTAN 50 MG TAB PO (08:34)
[2017-11-22] MEDS: FAMOTIDINE 20 MG TAB PO (08:34)
[2017-11-22] MEDS: GUAIFENESIN/DM 5ML CUP PO ×3 (08:35→21:44)
[2017-11-22] MEDS: SEVELAMER CARBONATE 0.8 GM PKT PO ×3 (08:36→18:03)
[2017-11-22] MEDS: HEPARIN 5,000 UNIT/0.5 ML VIAL SC ×2 (09:00→21:00)
[2017-11-22] MEDS: INSULIN ASPART [NOVOLOG] 3 ML PEN SC ×4 (09:29→21:00)
[2017-11-22] MEDS: ALBUTEROL 0.083% (NEB) 2.5 MG/3 ML AMP HHN ×4 (09:40→22:26)
[2017-11-22] MEDS: DIMETHICONE STICK TOP (12:29)
[2017-11-22] MEDS: METOPROLOL (XL) 25 MG TAB PO ×2 (12:31→23:53)
[2017-11-22] MEDS: hydrALAzine 20 MG INJ IV (17:53)
[2017-11-22] MEDS: FLUCONAZOLE 100 MG TAB PO (18:09)
[2017-11-22] MEDS: ATORVASTATIN 20 MG TAB PO (21:39)
[2017-11-22] MEDS: ESCITALOPRAM 10 MG TAB PO (21:41)
[2017-11-23] MEDS: LORAZEPAM 0.5 MG TAB PO ×2 (00:57→20:31)
[2017-11-23] MEDS: ACCU-CHEK XX (02:00)
[2017-11-23 04:56] LABS: ADD MAN DIFF? NO
[2017-11-23 05:04] LABS: BASOPHIL # 0.1 10^3/ul (0.0-0.1); BASOPHILS % 0.7 % (0.0-2.0); EOSINOPHILS # 0.2 10^3/ul (0.0-0.5); EOSINOPHILS % 1.8 % (0.0-7.0); HEMATOCRIT 33.9 % (37.0-47.0); HEMOGLOBIN 11.4 g/dl (12.0-16.0); LYMPHOCYTES # 0.9 10^3/ul (0.8-2.9); LYMPHOCYTES % 10.1 % (15.0-51.0); MEAN CORPUSCULAR HEMOGLOBIN 30.9 pg (29.0-33.0); MEAN CORPUSCULAR HGB CONC 33.6 g/dl (32.0-37.0); MEAN CORPUSCULAR VOLUME 91.9 fl (82.0-101.0); MEAN PLATELET VOLUME 9.5 fl (7.4-10.4); MONOCYTE # 0.9 10^3/ul (0.3-0.9); MONOCYTES % 9.8 % (0.0-11.0); NEUTROPHIL # 7.1 10^3/ul (1.6-7.5); NEUTROPHILS % 77.2 % (39.0-77.0); PLATELET COUNT 166 10^3/UL (140-415); RED BLOOD COUNT 3.69 10^6/ul (4.20-5.40); RED CELL DISTRIBUTION WIDTH 15.7 % (11.5-14.5)
[2017-11-23 05:04] LABS: WHITE BLOOD COUNT 9.2 10^3/ul (4.8-10.8)
[2017-11-23 05:15] LABS: ANION GAP 22 (8-16); BLOOD UREA NITROGEN 40 mg/dl (7-20); CALCIUM 9.8 mg/dl (8.4-10.2); CARBON DIOXIDE 27 mmol/L (21-31); CHLORIDE 94 mmol/L (97-110); CREATININE 6.45 mg/dl (0.44-1.00); GLUCOSE 145 mg/dl (70-220); POTASSIUM 5.1 mmol/L (3.5-5.1); SODIUM 138 mmol/L (135-144)
[2017-11-23] MEDS: ALBUTEROL 0.083% (NEB) 2.5 MG/3 ML AMP HHN ×3 (07:41→16:28)
[2017-11-23] MEDS: LOSARTAN 50 MG TAB PO (08:39)
[2017-11-23] MEDS: FUROSEMIDE 40 MG TAB PO (08:40)
[2017-11-23] MEDS: HEPARIN 5,000 UNIT/0.5 ML VIAL SC ×2 (08:42→20:32)
[2017-11-23] MEDS: CALCIUM ACETATE 667 MG CAP PO ×3 (08:42→17:58)
[2017-11-23] MEDS: SEVELAMER CARBONATE 0.8 GM PKT PO ×3 (08:43→17:58)
[2017-11-23] MEDS: FLUCONAZOLE 100 MG TAB PO (08:44)
[2017-11-23] MEDS: ASPIRIN 81 MG TAB PO (08:44)
[2017-11-23] MEDS: CALCITRIOL 0.25 MCG CAP PO (08:45)
[2017-11-23] MEDS: GUAIFENESIN/DM 5ML CUP PO ×3 (08:45→20:31)
[2017-11-23] MEDS: FAMOTIDINE 20 MG TAB PO (08:45)
[2017-11-23] MEDS: ROPINIROLE 1 MG TAB PO ×3 (08:45→20:31)
[2017-11-23] MEDS: INSULIN ASPART [NOVOLOG] 3 ML PEN SC ×4 (08:49→20:34)
[2017-11-23] MEDS: METOPROLOL (XL) 25 MG TAB PO ×2 (11:30→22:53)
[2017-11-23] MEDS: LORAZEPAM 2 MG INJ IV (12:54)
[2017-11-23] MEDS: LIDOCAINE 1% (MDV) 10 ML INJ INJ (13:08)
[2017-11-23] MEDS: LEVOFLOXACIN 250 MG TAB PO (17:57)
[2017-11-23] MEDS: DIPHENHYDRAMINE 25 MG CAP PO (18:55)
[2017-11-23] MEDS: ESCITALOPRAM 10 MG TAB PO (20:31)
[2017-11-23] MEDS: ATORVASTATIN 20 MG TAB PO (20:32)
[2017-11-23] MEDS: hydrALAzine 20 MG INJ IV (20:35)
[2017-11-24] MEDS: ALBUTEROL 0.083% (NEB) 2.5 MG/3 ML AMP HHN ×4 (01:58→16:28)
[2017-11-24] MEDS: ACCU-CHEK XX (02:06)
[2017-11-24] MEDS: hydrALAzine 20 MG INJ IV ×2 (02:08→15:21)
[2017-11-24] MEDS: OXYCODONE/ACETAMINOPHEN (5/325) TAB PO ×2 (02:34→10:39)
[2017-11-24 04:57] LABS: ADD MAN DIFF? NO
[2017-11-24 05:00] LABS: BASOPHIL # 0.1 10^3/ul (0.0-0.1); BASOPHILS % 0.9 % (0.0-2.0); EOSINOPHILS # 0.3 10^3/ul (0.0-0.5); EOSINOPHILS % 3.5 % (0.0-7.0); HEMATOCRIT 36.3 % (37.0-47.0); HEMOGLOBIN 11.8 g/dl (12.0-16.0); LYMPHOCYTES # 0.7 10^3/ul (0.8-2.9); LYMPHOCYTES % 8.3 % (15.0-51.0); MEAN CORPUSCULAR HGB CONC 32.5 g/dl (32.0-37.0); MEAN CORPUSCULAR VOLUME 92.4 fl (82.0-101.0); MEAN PLATELET VOLUME 9.4 fl (7.4-10.4); MONOCYTE # 0.8 10^3/ul (0.3-0.9); MONOCYTES % 10.5 % (0.0-11.0); NEUTROPHIL # 6.1 10^3/ul (1.6-7.5); NEUTROPHILS % 76.4 % (39.0-77.0); PLATELET COUNT 149 10^3/UL (140-415); RED BLOOD COUNT 3.93 10^6/ul (4.20-5.40); RED CELL DISTRIBUTION WIDTH 15.8 % (11.5-14.5)
[2017-11-24 05:00] LABS: WHITE BLOOD COUNT 7.9 10^3/ul (4.8-10.8)
[2017-11-24 05:21] LABS: ANION GAP 18 (8-16); BLOOD UREA NITROGEN 26 mg/dl (7-20); CALCIUM 9.4 mg/dl (8.4-10.2); CARBON DIOXIDE 27 mmol/L (21-31); CHLORIDE 99 mmol/L (97-110); CREATININE 4.34 mg/dl (0.44-1.00); GLUCOSE 166 mg/dl (70-220); POTASSIUM 4.4 mmol/L (3.5-5.1); SODIUM 140 mmol/L (135-144)
[2017-11-24] MEDS: HEPARIN 5,000 UNIT/0.5 ML VIAL SC ×2 (08:58→21:00)
[2017-11-24] MEDS: INSULIN ASPART [NOVOLOG] 3 ML PEN SC ×4 (08:58→21:00)
[2017-11-24] MEDS: SEVELAMER CARBONATE 0.8 GM PKT PO ×3 (09:39→17:41)
[2017-11-24] MEDS: LOSARTAN 50 MG TAB PO (09:40)
[2017-11-24] MEDS: CALCIUM ACETATE 667 MG CAP PO ×3 (09:40→17:39)
[2017-11-24] MEDS: FAMOTIDINE 20 MG TAB PO (09:40)
[2017-11-24] MEDS: CALCITRIOL 0.25 MCG CAP PO (09:40)
[2017-11-24] MEDS: ROPINIROLE 1 MG TAB PO ×3 (09:41→21:55)
[2017-11-24] MEDS: FUROSEMIDE 40 MG TAB PO (09:42)
[2017-11-24] MEDS: ASPIRIN 81 MG TAB PO (09:42)
[2017-11-24] MEDS: GUAIFENESIN/DM 5ML CUP PO ×3 (09:43→21:57)
[2017-11-24] MEDS: METOPROLOL (XL) 25 MG TAB PO ×2 (12:23→23:57)
[2017-11-24] MEDS: DIPHENHYDRAMINE 25 MG CAP PO (15:21)
[2017-11-24] MEDS: ESCITALOPRAM 10 MG TAB PO (21:55)
[2017-11-24] MEDS: ATORVASTATIN 20 MG TAB PO (21:55)
[2017-11-24] MEDS: LORAZEPAM 0.5 MG TAB PO (22:04)
[2017-11-25] MEDS: ACCU-CHEK XX (02:00)
[2017-11-25 05:37] LABS: ADD MAN DIFF? NO
[2017-11-25 05:46] LABS: BASOPHIL # 0.1 10^3/ul (0.0-0.1); BASOPHILS % 0.7 % (0.0-2.0); EOSINOPHILS # 0.4 10^3/ul (0.0-0.5); EOSINOPHILS % 3.6 % (0.0-7.0); HEMATOCRIT 32.2 % (37.0-47.0); HEMOGLOBIN 11.5 g/dl (12.0-16.0); LYMPHOCYTES # 0.8 10^3/ul (0.8-2.9); LYMPHOCYTES % 8.2 % (15.0-51.0); MEAN CORPUSCULAR HGB CONC 35.7 g/dl (32.0-37.0); MEAN CORPUSCULAR VOLUME 92.5 fl (82.0-101.0); MEAN PLATELET VOLUME 9.4 fl (7.4-10.4); MONOCYTES % 10.3 % (0.0-11.0); NEUTROPHIL # 7.6 10^3/ul (1.6-7.5); NEUTROPHILS % 76.9 % (39.0-77.0); PLATELET COUNT 157 10^3/UL (140-415); RED BLOOD COUNT 3.48 10^6/ul (4.20-5.40); RED CELL DISTRIBUTION WIDTH 15.9 % (11.5-14.5)
[2017-11-25 05:46] LABS: WHITE BLOOD COUNT 9.9 10^3/ul (4.8-10.8)
[2017-11-25 06:11] LABS: ANION GAP 24 (8-16); BLOOD UREA NITROGEN 50 mg/dl (7-20); CALCIUM 9.6 mg/dl (8.4-10.2); CARBON DIOXIDE 26 mmol/L (21-31); CHLORIDE 93 mmol/L (97-110); GLUCOSE 132 mg/dl (70-220); POTASSIUM 5.2 mmol/L (3.5-5.1); SODIUM 138 mmol/L (135-144)
[2017-11-25] MEDS: ALBUTEROL 0.083% (NEB) 2.5 MG/3 ML AMP HHN ×3 (08:15→16:53)
[2017-11-25] MEDS: INSULIN ASPART [NOVOLOG] 3 ML PEN SC ×4 (08:25→20:19)
[2017-11-25] MEDS: ROPINIROLE 1 MG TAB PO ×3 (08:28→20:15)
[2017-11-25] MEDS: ASPIRIN 81 MG TAB PO (08:28)
[2017-11-25] MEDS: CALCITRIOL 0.25 MCG CAP PO (08:28)
[2017-11-25] MEDS: FAMOTIDINE 20 MG TAB PO (08:28)
[2017-11-25] MEDS: SEVELAMER CARBONATE 0.8 GM PKT PO ×3 (08:28→17:33)
[2017-11-25] MEDS: CALCIUM ACETATE 667 MG CAP PO ×3 (08:28→17:33)
[2017-11-25] MEDS: GUAIFENESIN/DM 5ML CUP PO ×3 (08:30→20:15)
[2017-11-25] MEDS: HEPARIN 5,000 UNIT/0.5 ML VIAL SC ×2 (08:30→20:15)
[2017-11-25] MEDS: LOSARTAN 50 MG TAB PO (08:31)
[2017-11-25] MEDS: FUROSEMIDE 40 MG TAB PO (08:32)
[2017-11-25] MEDS ORDERED: LIDOCAINE 1% (MDV) 10 ML INJ INJ (09:46)
[2017-11-25] MEDS: METOPROLOL (XL) 25 MG TAB PO ×2 (12:01→23:52)
[2017-11-25] MEDS: OXYCODONE/ACETAMINOPHEN (5/325) TAB PO ×2 (13:41)
[2017-11-25] MEDS: LORAZEPAM 0.5 MG TAB PO ×2 (16:19→20:14)
[2017-11-25] MEDS: LEVOFLOXACIN 250 MG TAB PO (16:19)
[2017-11-25] MEDS: LIDOCAINE 1% (MDV) 20 ML INJ INJ (17:29)
[2017-11-25] MEDS: DIPHENHYDRAMINE 25 MG CAP PO (17:33)
[2017-11-25] MEDS ORDERED: HYDROCORTISONE 1% 28 GM CR TOP (18:00)
[2017-11-25] MEDS: ATORVASTATIN 20 MG TAB PO (20:15)
[2017-11-25] MEDS: ESCITALOPRAM 10 MG TAB PO (20:15)
[2017-11-25] MEDS: HYDROCORTISONE 1% 28 GM CR TOP (20:16)
[2017-11-25] MEDS: TRIAMCINOLONE ACET 0.1% 15 GM CR TOP (23:48)
[2017-11-26] MEDS: DIPHENHYDRAMINE 25 MG CAP PO ×2 (00:09→09:03)
[2017-11-26] MEDS: ACCU-CHEK XX (02:00)
[2017-11-26] MEDS: OXYCODONE/ACETAMINOPHEN (5/325) TAB PO (06:12)
[2017-11-26] MEDS: CALCIUM ACETATE 667 MG CAP PO ×3 (07:40→17:46)
[2017-11-26] MEDS: SEVELAMER CARBONATE 0.8 GM PKT PO ×3 (07:41→17:46)
[2017-11-26] MEDS: INSULIN ASPART [NOVOLOG] 3 ML PEN SC ×4 (08:00→20:47)
[2017-11-26] MEDS: HEPARIN 5,000 UNIT/0.5 ML VIAL SC ×2 (08:57→20:36)
[2017-11-26] MEDS: TRIAMCINOLONE ACET 0.1% 15 GM CR TOP ×3 (08:57→20:40)
[2017-11-26] MEDS: ALBUTEROL 0.083% (NEB) 2.5 MG/3 ML AMP HHN ×3 (09:00→17:24)
[2017-11-26] MEDS: LOSARTAN 50 MG TAB PO ×2 (09:00→12:46)
[2017-11-26] MEDS: FUROSEMIDE 40 MG TAB PO ×2 (09:00→12:46)
[2017-11-26] MEDS: LORAZEPAM 0.5 MG TAB PO ×2 (09:03→23:06)
[2017-11-26] MEDS: HYDROCORTISONE 1% 28 GM CR TOP (09:36)
[2017-11-26] MEDS: ASPIRIN 81 MG TAB PO (09:36)
[2017-11-26] MEDS: CALCITRIOL 0.25 MCG CAP PO (09:36)
[2017-11-26] MEDS: GUAIFENESIN/DM 5ML CUP PO ×3 (09:37→20:36)
[2017-11-26] MEDS: FAMOTIDINE 20 MG TAB PO (09:37)
[2017-11-26] MEDS: ROPINIROLE 1 MG TAB PO ×3 (09:37→20:35)
[2017-11-26] MEDS: LIDOCAINE 1% (MDV) 10 ML INJ INJ (10:47)
[2017-11-26] MEDS: METOPROLOL (XL) 25 MG TAB PO ×2 (12:46→23:12)
[2017-11-26] MEDS: ESCITALOPRAM 10 MG TAB PO (20:36)
[2017-11-26] MEDS: ATORVASTATIN 20 MG TAB PO (20:36)
[2017-11-27] MEDS: ACCU-CHEK XX (02:15)
[2017-11-27] MEDS: OXYCODONE/ACETAMINOPHEN (5/325) TAB PO ×2 (02:38→12:18)
[2017-11-27] MEDS: INSULIN ASPART [NOVOLOG] 3 ML PEN SC ×2 (08:50→12:39)
[2017-11-27] MEDS: SEVELAMER CARBONATE 0.8 GM PKT PO ×2 (08:52→12:12)
[2017-11-27] MEDS: ASPIRIN 81 MG TAB PO (08:53)
[2017-11-27] MEDS: ROPINIROLE 1 MG TAB PO ×2 (08:53→12:12)
[2017-11-27] MEDS: FAMOTIDINE 20 MG TAB PO (08:53)
[2017-11-27] MEDS: CALCIUM ACETATE 667 MG CAP PO ×2 (08:53→12:12)
[2017-11-27] MEDS: CALCITRIOL 0.25 MCG CAP PO (08:53)
[2017-11-27] MEDS: TRIAMCINOLONE ACET 0.1% 15 GM CR TOP ×2 (08:54→12:11)
[2017-11-27] MEDS: GUAIFENESIN/DM 5ML CUP PO ×2 (08:54→12:12)
[2017-11-27] MEDS: HEPARIN 5,000 UNIT/0.5 ML VIAL SC (08:55)
[2017-11-27] MEDS: LOSARTAN 50 MG TAB PO (08:59)
[2017-11-27] MEDS: FUROSEMIDE 40 MG TAB PO (08:59)
[2017-11-27] MEDS: ALBUTEROL 0.083% (NEB) 2.5 MG/3 ML AMP HHN ×2 (09:00→13:00)
[2017-11-27] MEDS: METOPROLOL (XL) 25 MG TAB PO (12:12)
[2017-11-27] MEDS: LEVOFLOXACIN 250 MG TAB PO (12:18)
[2017-11-28] MEDS ORDERED: NIFEdipine (XL) 30 MG TAB PO (21:00)
== END 2017-11-27 14:00 | DRG 70 ==
LOC: E/R 12:57 → TEL 14:52 → MS1 11-21 18:11
PROC: 5A1D70Z Performance of Urinary Filtration, Intermittent, Less than 6 Hours Per Day (ICD-10-PCS; principal; 2017-11-23)
DX: G93.40 Encephalopathy, unspecified (principal); I50.33 Acute on chronic diastolic (congestive) heart failure; N18.6 End stage renal disease; N39.0 Urinary tract infection, site not specified; I13.2 Hypertensive heart and chronic kidney disease with heart failure and with stage 5 chronic kidney disease, or end stage renal disease; I16.1 Hypertensive emergency; R78.81 Bacteremia; E11.22 Type 2 diabetes mellitus with diabetic chronic kidney disease; F41.9 Anxiety disorder, unspecified; I25.10 Atherosclerotic heart disease of native coronary artery without angina pectoris; G20 Parkinson's disease; I25.2 Old myocardial infarction; D64.9 Anemia, unspecified; Z99.2 Dependence on renal dialysis; I16.0 Hypertensive urgency; E11.649 Type 2 diabetes mellitus with hypoglycemia without coma; G25.81 Restless legs syndrome; B96.1 Klebsiella pneumoniae [K. pneumoniae] as the cause of diseases classified elsewhere; Z79.4 Long term (current) use of insulin; Z86.73 Personal history of transient ischemic attack (TIA), and cerebral infarction without residual deficits; Z79.82 Long term (current) use of aspirin
CPT/HCPCS: 36415; 70450; 71045; 80048; 80053; 80061; 80307; 81001; 82140; 82550; 82553; 82962; 83036; 83605; 83735; 83880; 84100; 84443; 84484; 85025; 85610; 85730; 87040; 87081; 87086; 87340; 90935; 92526; 92610; 93005; 94640; 94664; 96374; 99217; 99285-25; G0378

== ENCOUNTER 2017-12-30 04:37 | Inpatient (IN) | payer OTHER, MEDICARE ==
[2017-12-30] MEDS: SODIUM CHLORIDE 0.9% 500 ML BAG IV* (04:51)
[2017-12-30] MEDS: SUCCINYLCHOLINE CHLORIDE 100 MG/5 ML SYG IV (05:00)
[2017-12-30] MEDS: PROPOFOL 100 ML IV ×2 (05:02→21:35)
[2017-12-30 05:09] LABS: ADD MAN DIFF? NO; BASOPHILS % 0.4 % (0.0-2.0); EOSINOPHILS # 0.2 10^3/ul (0.0-0.5); EOSINOPHILS % 2.3 % (0.0-7.0); HEMATOCRIT 45.5 % (37.0-47.0); LYMPHOCYTES # 3.5 10^3/ul (0.8-2.9); LYMPHOCYTES % 33.8 % (15.0-51.0); MEAN CORPUSCULAR HEMOGLOBIN 30.5 pg (29.0-33.0); MEAN CORPUSCULAR HGB CONC 30.8 g/dl (32.0-37.0); MEAN CORPUSCULAR VOLUME 99.1 fl (82.0-101.0); MEAN PLATELET VOLUME 9.7 fl (7.4-10.4); MONOCYTE # 0.8 10^3/ul (0.3-0.9); MONOCYTES % 7.8 % (0.0-11.0); NEUTROPHIL # 5.5 10^3/ul (1.6-7.5); NEUTROPHILS % 54.1 % (39.0-77.0); PLATELET COUNT 178 10^3/UL (140-415); RED BLOOD COUNT 4.59 10^6/ul (4.20-5.40); RED CELL DISTRIBUTION WIDTH 16.9 % (11.5-14.5)
[2017-12-30 05:09] LABS: WHITE BLOOD COUNT 10.2 10^3/ul (4.8-10.8)
[2017-12-30 05:29] LABS: INR 1.09; PROTIME 14.3 Sec (11.9-14.9); PT RATIO 1.1
[2017-12-30 05:30] LABS: PARTIAL THROMBOPLASTIN TIME 33.2 Sec (25.0-35.0)
[2017-12-30 05:31] LABS: ALANINE AMINOTRANSFERASE 85 IU/L (13-69); ALBUMIN 4.8 g/dl (3.3-4.9); ALKALINE PHOSPHATASE 320 IU/L (42-121); ANION GAP 31 (8-16); ASPARTATE AMINO TRANSFERASE 150 IU/L (15-46); BILIRUBIN,INDIRECT 0.4 mg/dl (0-1.1); BILIRUBIN,TOTAL 0.4 mg/dl (0.2-1.3); BLOOD UREA NITROGEN 99 mg/dl (7-20); CALCIUM 9.3 mg/dl (8.4-10.2); CARBON DIOXIDE 17 mmol/L (21-31); CHLORIDE 97 mmol/L (97-110); GLUCOSE 158 mg/dl (70-220); MAGNESIUM 3.3 mg/dl (1.7-2.5); PHOSPHORUS 9.8 mg/dl (2.5-4.9); SODIUM 137 mmol/L (135-144); TOTAL PROTEIN 7.8 g/dl (6.1-8.1)
[2017-12-30 05:42] LABS: TROPONIN-I 0.029 ng/ml (0.000-0.120)
[2017-12-30 05:48] LABS: CREATININE 8.93 mg/dl (0.44-1.00)
[2017-12-30] MEDS ORDERED: DEXTROSE 50% 50 ML SYRINGE IV ×3 (06:00→13:00)
[2017-12-30 06:10] LABS: AADO2 Arterial 585.9 mmHg (7.0-24.0); Arterial Base Excess -9.7 mmol/L (-3.0-3); Arterial Blood Gas Oxygen Sat 85.8 mmHG (95.0-98.0); Arterial COHb 0.7 % (0.0-3.0); Arterial Fraction of Oxyhgb 84.9 % (93.0-99.0); Arterial HCO3 19.8 mmol/L (22.0-26.0); Arterial MetHb 0.4 % (0.0-1.5); Arterial Total Hemglobin 13.7 g/dl (12.0-18.0); MODE VENT - AC; Site Right Brachial
[2017-12-30] MEDS ORDERED: SUCCINYLCHOLINE CHLORIDE 100 MG/5 ML SYG IV (07:00)
[2017-12-30 07:50] LABS: POTASSIUM 7.1 mmol/L (3.5-5.1)
[2017-12-30] MEDS: DEXTROSE 50% 50 ML SYRINGE IV (07:58)
[2017-12-30] MEDS: NA BICARBONATE 8.4% 50 ML SYG IV (07:58)
[2017-12-30] MEDS: CALCIUM GLUCONATE 10% 1 GM in DEXTROSE 5% 100 ML IVPB (08:16)
[2017-12-30 08:29] LABS: AADO2 Arterial 582.8 mmHg (7.0-24.0); Allen Test ACCEPTAB; Arterial Base Excess -5.2 mmol/L (-3.0-3); Arterial Blood Gas Oxygen Sat 96.7 mmHG (95.0-98.0); Arterial COHb 0.6 % (0.0-3.0); Arterial Fraction of Oxyhgb 95.6 % (93.0-99.0); Arterial HCO3 19.3 mmol/L (22.0-26.0); Arterial MetHb 0.5 % (0.0-1.5); Arterial Total Hemglobin 7.7 g/dl (12.0-18.0); Arterial pCO2 33.4 mmhg (35-45); MODE VENT - AC; Site Right Radial
[2017-12-30] MEDS: INSULIN REGULAR, HUMAN 100 UNIT/1 ML 3ML VIAL IVP (08:51)
[2017-12-30] MEDS: NA POLYST SULFON 15 GM/60 ML BTL NGT (08:58)
[2017-12-30] MEDS ORDERED: NACL 0.9% 3 ML SYG IV (12:00)
[2017-12-30] MEDS ORDERED: ONDANSETRON 4 MG INJ IV (12:00)
[2017-12-30] MEDS ORDERED: ACETAMINOPHEN 650MG/20.3ML CUP PO (12:00)
[2017-12-30 12:48] LABS: ADD MAN DIFF? NO
[2017-12-30 12:57] LABS: ABNORMAL IP MESSAGE 1; BASOPHILS % 0.1 % (0.0-2.0); EOSINOPHILS % 0.3 % (0.0-7.0); HEMOGLOBIN 10.3 g/dl (12.0-16.0); LYMPHOCYTES # 0.6 10^3/ul (0.8-2.9); LYMPHOCYTES % 7.9 % (15.0-51.0); MEAN CORPUSCULAR HEMOGLOBIN 30.8 pg (29.0-33.0); MEAN CORPUSCULAR HGB CONC 32.2 g/dl (32.0-37.0); MEAN CORPUSCULAR VOLUME 95.8 fl (82.0-101.0); MEAN PLATELET VOLUME 9.6 fl (7.4-10.4); MONOCYTE # 0.6 10^3/ul (0.3-0.9); MONOCYTES % 8.2 % (0.0-11.0); NEUTROPHIL # 5.7 10^3/ul (1.6-7.5); NEUTROPHILS % 82.8 % (39.0-77.0); PLATELET COUNT 119 10^3/UL (140-415); RED BLOOD COUNT 3.34 10^6/ul (4.20-5.40); RED CELL DISTRIBUTION WIDTH 16.8 % (11.5-14.5)
[2017-12-30 12:57] LABS: WHITE BLOOD COUNT 6.9 10^3/ul (4.8-10.8)
[2017-12-30] MEDS ORDERED: GLUCOSE GEL 15 GRAM TUBE BUCCAL (13:00)
[2017-12-30] MEDS: INSULIN ASPART [NOVOLOG] 3 ML PEN SC ×3 (13:00→21:00)
[2017-12-30] MEDS ORDERED: GLUCAGON 1 MG INJ IM (13:00)
[2017-12-30] MEDS ORDERED: GLUCOSE GEL 15 GRAM TUBE PO ×2 (13:00)
[2017-12-30] MEDS: ROPINIROLE 1 MG TAB PO (13:00)
[2017-12-30 13:02] LABS: POSITIVE DIFF @See below
[2017-12-30 13:08] LABS: HEMOGLOBIN A1C 7.2 % (0-5.9)
[2017-12-30 13:10] LABS: ANION GAP 22 (8-16); BLOOD UREA NITROGEN 111 mg/dl (7-20); CALCIUM 8.9 mg/dl (8.4-10.2); CARBON DIOXIDE 24 mmol/L (21-31); CHLORIDE 98 mmol/L (97-110); GLUCOSE 76 mg/dl (70-220); PHOSPHORUS 7.6 mg/dl (2.5-4.9); SODIUM 137 mmol/L (135-144)
[2017-12-30 13:24] LABS: POTASSIUM 6.5 mmol/L (3.5-5.1)
[2017-12-30] MEDS: CEFEPIME 1GM/50 ML (PMX) 50 ML IVPB (13:28)
[2017-12-30 13:41] LABS: HEPATITIS B SURFACE ANTIGEN NEGATIVE (NEGATIVE)
[2017-12-30 13:58] LABS: HEPATITIS B SURFACE ANTIBODY POSITIVE (NEGATIVE)
[2017-12-30] MEDS: DEXTROSE 5%-0.45% NACL 1,000 ML IV (18:22)
[2017-12-30 19:41] LABS: CREATINE KINASE 125 IU/L (23-200)
[2017-12-30 19:52] LABS: CK-MB 3.73 ng/ml (0.0-2.4)
[2017-12-30 19:54] LABS: TROPONIN-I 0.357 ng/ml (0.000-0.120)
[2017-12-30] MEDS ORDERED: ATORVASTATIN 20 MG TAB PO (21:00)
[2017-12-30] MEDS: ROPINIROLE 1 MG TAB GTB (21:11)
[2017-12-30] MEDS: ATORVASTATIN 20 MG TAB GTB (21:11)
[2017-12-30] MEDS: hydrALAzine 20 MG INJ IV (21:12)
[2017-12-30] MEDS: HEPARIN 5,000 UNIT/0.5 ML VIAL SC (21:18)
[2017-12-30] MEDS ORDERED: PROPOFOL 100 ML IV (21:28)
[2017-12-31] MEDS: INSULIN ASPART [NOVOLOG] 3 ML PEN SC ×6 (00:18→21:00)
[2017-12-31 00:57] LABS: ANION GAP 15 (8-16); BLOOD UREA NITROGEN 45 mg/dl (7-20); CALCIUM 8.9 mg/dl (8.4-10.2); CARBON DIOXIDE 28 mmol/L (21-31); CHLORIDE 98 mmol/L (97-110); CREATININE 5.22 mg/dl (0.44-1.00); GLUCOSE 101 mg/dl (70-220); POTASSIUM 4.2 mmol/L (3.5-5.1); SODIUM 137 mmol/L (135-144)
[2017-12-31 01:05] LABS: CK-MB 2.66 ng/ml (0.0-2.4)
[2017-12-31] MEDS: ACCU-CHEK XX (02:00)
[2017-12-31] MEDS: PROPOFOL 100 ML IV ×3 (04:02→22:13)
[2017-12-31 05:29] LABS: ADD MAN DIFF? NO
[2017-12-31] MEDS: PANTOPRAZOLE 40 MG INJ IV (05:32)
[2017-12-31 05:34] LABS: ABNORMAL IP MESSAGE 1; BASOPHILS % 0.5 % (0.0-2.0); EOSINOPHILS # 0.1 10^3/ul (0.0-0.5); EOSINOPHILS % 2.1 % (0.0-7.0); HEMATOCRIT 32.6 % (37.0-47.0); HEMOGLOBIN 10.6 g/dl (12.0-16.0); LYMPHOCYTES # 0.5 10^3/ul (0.8-2.9); LYMPHOCYTES % 9.6 % (15.0-51.0); MEAN CORPUSCULAR HEMOGLOBIN 30.6 pg (29.0-33.0); MEAN CORPUSCULAR HGB CONC 32.5 g/dl (32.0-37.0); MEAN CORPUSCULAR VOLUME 94.2 fl (82.0-101.0); MEAN PLATELET VOLUME 9.2 fl (7.4-10.4); MONOCYTE # 0.5 10^3/ul (0.3-0.9); NEUTROPHIL # 4.5 10^3/ul (1.6-7.5); NEUTROPHILS % 79.3 % (39.0-77.0); PLATELET COUNT 106 10^3/UL (140-415); RED BLOOD COUNT 3.46 10^6/ul (4.20-5.40); RED CELL DISTRIBUTION WIDTH 16.5 % (11.5-14.5)
[2017-12-31 05:34] LABS: WHITE BLOOD COUNT 5.7 10^3/ul (4.8-10.8)
[2017-12-31 05:40] LABS: POSITIVE DIFF @See below
[2017-12-31 06:16] LABS: CHOLESTEROL 86 mg/dl (100-200)
[2017-12-31 06:16] LABS: CHOL/HDL RATIO 1.6 RATIO; HDL CHOLESTEROL 53 mg/dl (37-92); LDL CHOLESTEROL,CALCULATED 12 mg/dl; TRIGLYCERIDES 103 mg/dl (0-149)
[2017-12-31 06:24] LABS: CK-MB 1.77 ng/ml (0.0-2.4)
[2017-12-31 06:47] LABS: ANION GAP 15 (8-16); BLOOD UREA NITROGEN 49 mg/dl (7-20); CALCIUM 8.6 mg/dl (8.4-10.2); CARBON DIOXIDE 27 mmol/L (21-31); CHLORIDE 100 mmol/L (97-110); CREATININE 5.67 mg/dl (0.44-1.00); GLUCOSE 85 mg/dl (70-220); MAGNESIUM 2.3 mg/dl (1.7-2.5); PHOSPHORUS 4.6 mg/dl (2.5-4.9); POTASSIUM 4.4 mmol/L (3.5-5.1); SODIUM 138 mmol/L (135-144)
[2017-12-31] MEDS: ASPIRIN 81 MG TAB GTB (08:47)
[2017-12-31] MEDS: ROPINIROLE 1 MG TAB GTB ×3 (08:47→22:13)
[2017-12-31] MEDS: HEPARIN 5,000 UNIT/0.5 ML VIAL SC ×2 (08:54→22:15)
[2017-12-31] MEDS ORDERED: ASPIRIN 81 MG TAB PO (09:00)
[2017-12-31] MEDS: hydrALAzine 20 MG INJ IV ×2 (09:56→18:59)
[2017-12-31] MEDS: morphine 2 MG INJ IV ×3 (12:32→19:27)
[2017-12-31] MEDS: DEXTROSE 5%-0.45% NACL 1,000 ML IV (16:32)
[2017-12-31] MEDS: ATORVASTATIN 20 MG TAB GTB (22:13)
[2017-12-31] MEDS: AMLODIPINE 5 MG TAB GTB (22:13)
[2018-01-01] MEDS: INSULIN ASPART [NOVOLOG] 3 ML PEN SC ×6 (01:00→20:50)
[2018-01-01] MEDS: ACCU-CHEK XX (01:42)
[2018-01-01] MEDS: PROPOFOL 100 ML IV ×2 (02:33→21:03)
[2018-01-01] MEDS: morphine 2 MG INJ IV ×3 (05:06→22:39)
[2018-01-01] MEDS: PANTOPRAZOLE 40 MG INJ IV (05:09)
[2018-01-01] MEDS: hydrALAzine 20 MG INJ IV ×2 (05:14→23:07)
[2018-01-01 05:45] LABS: ADD MAN DIFF? NO
[2018-01-01 06:02] LABS: ABNORMAL IP MESSAGE 1; BASOPHILS % 0.3 % (0.0-2.0); EOSINOPHILS # 0.2 10^3/ul (0.0-0.5); EOSINOPHILS % 2.8 % (0.0-7.0); HEMATOCRIT 34.9 % (37.0-47.0); HEMOGLOBIN 11.1 g/dl (12.0-16.0); LYMPHOCYTES # 0.4 10^3/ul (0.8-2.9); LYMPHOCYTES % 7.3 % (15.0-51.0); MEAN CORPUSCULAR HEMOGLOBIN 30.2 pg (29.0-33.0); MEAN CORPUSCULAR HGB CONC 31.8 g/dl (32.0-37.0); MEAN CORPUSCULAR VOLUME 95.1 fl (82.0-101.0); MEAN PLATELET VOLUME 9.7 fl (7.4-10.4); MONOCYTE # 0.8 10^3/ul (0.3-0.9); MONOCYTES % 12.5 % (0.0-11.0); NEUTROPHIL # 4.6 10^3/ul (1.6-7.5); NEUTROPHILS % 76.8 % (39.0-77.0); PLATELET COUNT 112 10^3/UL (140-415); RED BLOOD COUNT 3.67 10^6/ul (4.20-5.40)
[2018-01-01 06:14] LABS: POSITIVE DIFF @See below
[2018-01-01 06:53] LABS: ANION GAP 15 (8-16); BLOOD UREA NITROGEN 23 mg/dl (7-20); CALCIUM 9.1 mg/dl (8.4-10.2); CARBON DIOXIDE 28 mmol/L (21-31); CHLORIDE 98 mmol/L (97-110); CREATININE 4.36 mg/dl (0.44-1.00); GLUCOSE 107 mg/dl (70-220); POTASSIUM 3.8 mmol/L (3.5-5.1); SODIUM 137 mmol/L (135-144)
[2018-01-01] MEDS: LORAZEPAM 2 MG INJ IV ×3 (08:28→20:58)
[2018-01-01] MEDS: AMLODIPINE 5 MG TAB GTB (09:00)
[2018-01-01] MEDS: ASPIRIN 81 MG TAB GTB (09:00)
[2018-01-01] MEDS: ROPINIROLE 1 MG TAB GTB ×3 (09:00→20:10)
[2018-01-01] MEDS: HEPARIN 5,000 UNIT/0.5 ML VIAL SC ×2 (09:37→20:57)
[2018-01-01 13:45] LABS: CREATINE KINASE 88 IU/L (23-200)
[2018-01-01 13:56] LABS: CK INDEX 0.7; CK-MB 0.59 ng/ml (0.0-2.4); TROPONIN-I 0.063 ng/ml (0.000-0.120)
[2018-01-01] MEDS: DEXTROSE 5%-0.45% NACL 1,000 ML IV ×2 (17:30→20:05)
[2018-01-01 19:25] LABS: CREATINE KINASE 75 IU/L (23-200)
[2018-01-01 19:37] LABS: CK INDEX 0.5; TROPONIN-I 0.084 ng/ml (0.000-0.120)
[2018-01-01] MEDS: ATORVASTATIN 20 MG TAB GTB (20:10)
[2018-01-02] MEDS: INSULIN ASPART [NOVOLOG] 3 ML PEN SC ×6 (01:00→23:31)
[2018-01-02] MEDS: ACCU-CHEK XX (01:06)
[2018-01-02 05:00] LABS: ADD MAN DIFF? NO
[2018-01-02 05:05] LABS: WHITE BLOOD COUNT 6.5 10^3/ul (4.8-10.8)
[2018-01-02 05:05] LABS: ABNORMAL IP MESSAGE 1; BASOPHILS % 0.5 % (0.0-2.0); EOSINOPHILS # 0.2 10^3/ul (0.0-0.5); EOSINOPHILS % 2.8 % (0.0-7.0); HEMATOCRIT 33.3 % (37.0-47.0); HEMOGLOBIN 10.7 g/dl (12.0-16.0); LYMPHOCYTES # 0.5 10^3/ul (0.8-2.9); LYMPHOCYTES % 7.9 % (15.0-51.0); MEAN CORPUSCULAR HEMOGLOBIN 30.2 pg (29.0-33.0); MEAN CORPUSCULAR HGB CONC 32.1 g/dl (32.0-37.0); MEAN CORPUSCULAR VOLUME 94.1 fl (82.0-101.0); MEAN PLATELET VOLUME 9.8 fl (7.4-10.4); MONOCYTE # 0.8 10^3/ul (0.3-0.9); MONOCYTES % 11.7 % (0.0-11.0); NEUTROPHILS % 76.9 % (39.0-77.0); PLATELET COUNT 109 10^3/UL (140-415); RED BLOOD COUNT 3.54 10^6/ul (4.20-5.40); RED CELL DISTRIBUTION WIDTH 15.9 % (11.5-14.5)
[2018-01-02 05:19] LABS: POSITIVE DIFF @See below
[2018-01-02] MEDS: PANTOPRAZOLE 40 MG INJ IV (05:25)
[2018-01-02 05:29] LABS: ANION GAP 17 (8-16); BLOOD UREA NITROGEN 34 mg/dl (7-20); CALCIUM 8.9 mg/dl (8.4-10.2); CARBON DIOXIDE 25 mmol/L (21-31); CHLORIDE 100 mmol/L (97-110); CREATININE 6.73 mg/dl (0.44-1.00); GLUCOSE 100 mg/dl (70-220); SODIUM 138 mmol/L (135-144)
[2018-01-02] MEDS: HALOPERIDOL 5 MG INJ IV (07:37)
[2018-01-02] MEDS: HEPARIN 5,000 UNIT/0.5 ML VIAL SC ×2 (08:40→21:00)
[2018-01-02] MEDS: morphine 2 MG INJ IV (08:49)
[2018-01-02] MEDS: ROPINIROLE 1 MG TAB GTB ×3 (09:00→21:00)
[2018-01-02] MEDS: ASPIRIN 81 MG TAB GTB (09:00)
[2018-01-02] MEDS: AMLODIPINE 5 MG TAB GTB (09:00)
[2018-01-02] MEDS: LORAZEPAM 2 MG INJ IV (11:37)
[2018-01-02] MEDS ORDERED: LIDOCAINE 1% (MDV) 10 ML INJ INJ (17:30)
[2018-01-02] MEDS ORDERED: LIDOCAINE 1% (MDV) 20 ML INJ INJ (18:00)
[2018-01-02] MEDS: CLONIDINE 0.2 MG/24 HR PATCH TRANSDERM (21:00)
[2018-01-02] MEDS: ATORVASTATIN 20 MG TAB GTB (21:00)
[2018-01-03] MEDS: INSULIN ASPART [NOVOLOG] 3 ML PEN SC ×6 (01:00→20:48)
[2018-01-03] MEDS: LORAZEPAM 2 MG INJ IV ×4 (01:21→22:18)
[2018-01-03] MEDS: ACCU-CHEK XX (02:00)
[2018-01-03] MEDS: morphine 2 MG INJ IV ×3 (02:34→23:37)
[2018-01-03] MEDS: HALOPERIDOL 5 MG INJ IM (03:59)
[2018-01-03] MEDS: PANTOPRAZOLE 40 MG INJ IV (05:54)
[2018-01-03] MEDS: ASPIRIN 81 MG TAB GTB (08:47)
[2018-01-03] MEDS: ROPINIROLE 1 MG TAB GTB ×3 (08:47→23:37)
[2018-01-03] MEDS: AMLODIPINE 5 MG TAB GTB (08:47)
[2018-01-03] MEDS: HEPARIN 5,000 UNIT/0.5 ML VIAL SC ×2 (09:48→20:46)
[2018-01-03 10:57] LABS: ADD MAN DIFF? NO
[2018-01-03 11:02] LABS: WHITE BLOOD COUNT 7.6 10^3/ul (4.8-10.8)
[2018-01-03 11:02] LABS: ABNORMAL IP MESSAGE 1; BASOPHILS % 0.4 % (0.0-2.0); HEMATOCRIT 37.1 % (37.0-47.0); LYMPHOCYTES # 0.5 10^3/ul (0.8-2.9); LYMPHOCYTES % 6.7 % (15.0-51.0); MEAN CORPUSCULAR HEMOGLOBIN 30.3 pg (29.0-33.0); MEAN CORPUSCULAR HGB CONC 32.3 g/dl (32.0-37.0); MEAN CORPUSCULAR VOLUME 93.7 fl (82.0-101.0); MEAN PLATELET VOLUME 10.4 fl (7.4-10.4); MONOCYTE # 0.9 10^3/ul (0.3-0.9); MONOCYTES % 11.4 % (0.0-11.0); NEUTROPHIL # 6.2 10^3/ul (1.6-7.5); NEUTROPHILS % 81.4 % (39.0-77.0); PLATELET COUNT 128 10^3/UL (140-415); RED BLOOD COUNT 3.96 10^6/ul (4.20-5.40); RED CELL DISTRIBUTION WIDTH 15.6 % (11.5-14.5)
[2018-01-03 11:04] LABS: POSITIVE DIFF @See below
[2018-01-03 11:22] LABS: ANION GAP 28 (8-16); BLOOD UREA NITROGEN 27 mg/dl (7-20); CALCIUM 9.5 mg/dl (8.4-10.2); CARBON DIOXIDE 26 mmol/L (21-31); CHLORIDE 94 mmol/L (97-110); GLUCOSE 147 mg/dl (70-220); POTASSIUM 4.5 mmol/L (3.5-5.1); SODIUM 143 mmol/L (135-144)
[2018-01-03] MEDS: CLONIDINE 0.2 MG/24 HR PATCH TRANSDERM (13:36)
[2018-01-03] MEDS: MENTHOL/METH SALICYLATE 30 GM OINT TOP (16:58)
[2018-01-03] MEDS: ATORVASTATIN 20 MG TAB GTB (20:44)
[2018-01-04] MEDS: INSULIN ASPART [NOVOLOG] 3 ML PEN SC ×5 (01:00→17:36)
[2018-01-04] MEDS: ACCU-CHEK XX (02:00)
[2018-01-04] MEDS: ZOLPIDEM 5 MG TAB PO ×2 (02:27→22:40)
[2018-01-04] MEDS: PANTOPRAZOLE 40 MG INJ IV (05:18)
[2018-01-04 06:05] LABS: ADD MAN DIFF? NO
[2018-01-04 06:08] LABS: ABNORMAL IP MESSAGE 1; BASOPHILS % 0.6 % (0.0-2.0); EOSINOPHILS # 0.2 10^3/ul (0.0-0.5); HEMATOCRIT 37.5 % (37.0-47.0); HEMOGLOBIN 11.9 g/dl (12.0-16.0); IMMATURE GRANS #M 0.02 10^3/ul; IMMATURE GRANS % (M) 0.4 %; LYMPHOCYTES # 0.6 10^3/ul (0.8-2.9); LYMPHOCYTES % 11.6 % (15.0-51.0); MEAN CORPUSCULAR HEMOGLOBIN 29.5 pg (29.0-33.0); MEAN CORPUSCULAR HGB CONC 31.7 g/dl (32.0-37.0); MEAN CORPUSCULAR VOLUME 92.8 fl (82.0-101.0); MEAN PLATELET VOLUME 9.7 fl (7.4-10.4); MONOCYTE # 0.6 10^3/ul (0.3-0.9); NEUTROPHIL # 3.6 10^3/ul (1.6-7.5); NEUTROPHILS % 72.4 % (39.0-77.0); PLATELET COUNT 137 10^3/UL (140-415); RED BLOOD COUNT 4.04 10^6/ul (4.20-5.40); RED CELL DISTRIBUTION WIDTH 15.5 % (11.5-14.5)
[2018-01-04 06:12] LABS: POSITIVE DIFF @See below
[2018-01-04 06:31] LABS: ANION GAP 23 (8-16); BLOOD UREA NITROGEN 35 mg/dl (7-20); CALCIUM 8.8 mg/dl (8.4-10.2); CARBON DIOXIDE 29 mmol/L (21-31); CHLORIDE 92 mmol/L (97-110); CREATININE 6.67 mg/dl (0.44-1.00); GLUCOSE 236 mg/dl (70-220); SODIUM 140 mmol/L (135-144)
[2018-01-04] MEDS: morphine 2 MG INJ IV ×2 (06:31→10:32)
[2018-01-04] MEDS: ROPINIROLE 1 MG TAB GTB ×3 (09:21→20:37)
[2018-01-04] MEDS: AMLODIPINE 5 MG TAB GTB (09:21)
[2018-01-04] MEDS: ASPIRIN 81 MG TAB GTB (09:21)
[2018-01-04] MEDS: HEPARIN 5,000 UNIT/0.5 ML VIAL SC ×2 (09:31→21:00)
[2018-01-04] MEDS: LIDOCAINE 1% (MDV) 10 ML INJ INJ (15:56)
[2018-01-04] MEDS: LORAZEPAM 2 MG INJ IV (17:15)
[2018-01-04] MEDS: ATORVASTATIN 20 MG TAB GTB (20:37)
[2018-01-04] MEDS ORDERED: INSULIN ASPART [NOVOLOG] 3 ML PEN SC (21:00)
[2018-01-05] MEDS: morphine 2 MG INJ IV ×5 (00:08→18:14)
[2018-01-05] MEDS: LORAZEPAM 2 MG INJ IV ×3 (00:33→22:16)
[2018-01-05] MEDS ORDERED: ACCU-CHEK XX (02:00)
[2018-01-05] MEDS: ACCU-CHEK XX (02:00)
[2018-01-05] MEDS: hydrALAzine 20 MG INJ IV (04:15)
[2018-01-05 06:22] LABS: ADD MAN DIFF? NO
[2018-01-05 06:31] LABS: BASOPHILS % 0.8 % (0.0-2.0); EOSINOPHILS # 0.1 10^3/ul (0.0-0.5); EOSINOPHILS % 2.5 % (0.0-7.0); HEMATOCRIT 39.1 % (37.0-47.0); HEMOGLOBIN 12.3 g/dl (12.0-16.0); IMMATURE GRANS #M 0.02 10^3/ul; IMMATURE GRANS % (M) 0.4 %; LYMPHOCYTES # 0.7 10^3/ul (0.8-2.9); LYMPHOCYTES % 13.1 % (15.0-51.0); MEAN CORPUSCULAR HEMOGLOBIN 29.2 pg (29.0-33.0); MEAN CORPUSCULAR HGB CONC 31.5 g/dl (32.0-37.0); MEAN CORPUSCULAR VOLUME 92.9 fl (82.0-101.0); MEAN PLATELET VOLUME 10.2 fl (7.4-10.4); MONOCYTE # 0.8 10^3/ul (0.3-0.9); MONOCYTES % 14.8 % (0.0-11.0); NEUTROPHIL # 3.5 10^3/ul (1.6-7.5); NEUTROPHILS % 68.4 % (39.0-77.0); PLATELET COUNT 183 10^3/UL (140-415); RED BLOOD COUNT 4.21 10^6/ul (4.20-5.40); RED CELL DISTRIBUTION WIDTH 15.4 % (11.5-14.5)
[2018-01-05 06:31] LABS: WHITE BLOOD COUNT 5.1 10^3/ul (4.8-10.8)
[2018-01-05] MEDS: PANTOPRAZOLE 40 MG INJ IV (06:32)
[2018-01-05 06:46] LABS: ANION GAP 21 (8-16); BLOOD UREA NITROGEN 31 mg/dl (7-20); CALCIUM 9.5 mg/dl (8.4-10.2); CARBON DIOXIDE 29 mmol/L (21-31); CHLORIDE 94 mmol/L (97-110); CREATININE 5.61 mg/dl (0.44-1.00); GLUCOSE 177 mg/dl (70-220); POTASSIUM 4.1 mmol/L (3.5-5.1); SODIUM 140 mmol/L (135-144)
[2018-01-05] MEDS: ASPIRIN 81 MG TAB GTB (07:57)
[2018-01-05] MEDS: ROPINIROLE 1 MG TAB GTB ×3 (07:57→22:15)
[2018-01-05] MEDS: AMLODIPINE 5 MG TAB GTB (07:58)
[2018-01-05] MEDS: HEPARIN 5,000 UNIT/0.5 ML VIAL SC ×2 (07:59→21:00)
[2018-01-05] MEDS: hydrOXYzine HCL 25 MG TAB PO (08:01)
[2018-01-05] MEDS: INSULIN ASPART [NOVOLOG] 3 ML PEN SC ×4 (08:12→22:18)
[2018-01-05] MEDS: TETRAHYDROZOLINE 0.05% 15 ML OPH BOTH EYES ×2 (09:23→21:00)
[2018-01-05] MEDS: IPRATROPIUM (NEB) 0.5 MG/2.5 ML AMP NEB (09:59)
[2018-01-05] MEDS: ALBUTEROL 0.083% (NEB) 2.5 MG/3 ML AMP NEB (09:59)
[2018-01-05] MEDS: DIPHENHYDRAMINE 2.5 MG/ML 5ML CUP PO (12:43)
[2018-01-05] MEDS ORDERED: DIPHENHYDRAMINE 2%/ZINC 28.4 GM CR TOP (14:00)
[2018-01-05] MEDS: ATORVASTATIN 20 MG TAB GTB (22:15)
[2018-01-06] MEDS: ZOLPIDEM 5 MG TAB PO (01:28)
[2018-01-06] MEDS: morphine 2 MG INJ IV ×4 (01:28→17:09)
[2018-01-06] MEDS: hydrOXYzine HCL 25 MG TAB PO (01:28)
[2018-01-06] MEDS: hydrALAzine 20 MG INJ IV ×2 (01:37→17:09)
[2018-01-06] MEDS: ACCU-CHEK XX (01:44)
[2018-01-06] MEDS: LORAZEPAM 2 MG INJ IV ×3 (05:03→20:52)
[2018-01-06] MEDS: PANTOPRAZOLE 40 MG INJ IV (05:03)
[2018-01-06] MEDS: TETRAHYDROZOLINE 0.05% 15 ML OPH BOTH EYES ×2 (08:30→21:00)
[2018-01-06] MEDS: AMLODIPINE 5 MG TAB GTB (08:30)
[2018-01-06] MEDS: ROPINIROLE 1 MG TAB GTB ×3 (08:30→20:51)
[2018-01-06] MEDS: ASPIRIN 81 MG TAB GTB (08:30)
[2018-01-06] MEDS: HEPARIN 5,000 UNIT/0.5 ML VIAL SC ×2 (08:37→20:58)
[2018-01-06] MEDS: INSULIN ASPART [NOVOLOG] 3 ML PEN SC ×4 (08:37→21:06)
[2018-01-06] MEDS: ATORVASTATIN 20 MG TAB GTB (20:51)
[2018-01-07] MEDS: hydrALAzine 20 MG INJ IV ×2 (00:59→22:21)
[2018-01-07] MEDS: ACCU-CHEK XX (01:36)
[2018-01-07] MEDS: morphine 2 MG INJ IV ×5 (02:57→21:37)
[2018-01-07] MEDS: PANTOPRAZOLE 40 MG INJ IV (05:19)
[2018-01-07] MEDS: hydrOXYzine HCL 25 MG TAB PO ×2 (05:19→18:15)
[2018-01-07 05:59] LABS: ADD MAN DIFF? NO
[2018-01-07 06:07] LABS: WHITE BLOOD COUNT 7.6 10^3/ul (4.8-10.8)
[2018-01-07 06:07] LABS: BASOPHIL # 0.1 10^3/ul (0.0-0.1); BASOPHILS % 0.9 % (0.0-2.0); EOSINOPHILS # 0.3 10^3/ul (0.0-0.5); EOSINOPHILS % 3.4 % (0.0-7.0); HEMATOCRIT 33.2 % (37.0-47.0); IMMATURE GRANS #M 0.04 10^3/ul; IMMATURE GRANS % (M) 0.5 %; LYMPHOCYTES # 0.8 10^3/ul (0.8-2.9); LYMPHOCYTES % 10.2 % (15.0-51.0); MEAN CORPUSCULAR HEMOGLOBIN 29.9 pg (29.0-33.0); MEAN CORPUSCULAR HGB CONC 33.1 g/dl (32.0-37.0); MEAN CORPUSCULAR VOLUME 90.2 fl (82.0-101.0); MEAN PLATELET VOLUME 9.6 fl (7.4-10.4); MONOCYTES % 13.1 % (0.0-11.0); NEUTROPHIL # 5.4 10^3/ul (1.6-7.5); NEUTROPHILS % 71.9 % (39.0-77.0); PLATELET COUNT 223 10^3/UL (140-415); RED BLOOD COUNT 3.68 10^6/ul (4.20-5.40); RED CELL DISTRIBUTION WIDTH 15.3 % (11.5-14.5)
[2018-01-07 06:41] LABS: ANION GAP 21 (8-16); BLOOD UREA NITROGEN 62 mg/dl (7-20); CARBON DIOXIDE 25 mmol/L (21-31); CHLORIDE 92 mmol/L (97-110); CREATININE 8.59 mg/dl (0.44-1.00); GLUCOSE 181 mg/dl (70-220); POTASSIUM 5.4 mmol/L (3.5-5.1); SODIUM 133 mmol/L (135-144)
[2018-01-07] MEDS: HEPARIN 5,000 UNIT/0.5 ML VIAL SC ×2 (08:19→23:01)
[2018-01-07] MEDS: ROPINIROLE 1 MG TAB GTB ×3 (08:19→22:56)
[2018-01-07] MEDS: AMLODIPINE 5 MG TAB GTB (08:19)
[2018-01-07] MEDS: TETRAHYDROZOLINE 0.05% 15 ML OPH BOTH EYES ×2 (08:19→21:38)
[2018-01-07] MEDS: ASPIRIN 81 MG TAB GTB (08:19)
[2018-01-07] MEDS: INSULIN ASPART [NOVOLOG] 3 ML PEN SC ×4 (08:27→21:00)
[2018-01-07] MEDS: LORAZEPAM 2 MG INJ IV (09:34)
[2018-01-07] MEDS ORDERED: LIDOCAINE 1% (MDV) 10 ML INJ INJ (20:00)
[2018-01-07] MEDS: LIDOCAINE 1% (MDV) 20 ML INJ INJ (20:18)
[2018-01-07] MEDS: ATORVASTATIN 20 MG TAB GTB (22:57)
== END 2018-01-08 00:25 | DRG 640 ==
LOC: 6WM 01-03 18:43 → E/R 04:37 → TEL 01-02 12:53 → 6WM 01-03 18:52 → ICU 04:57
PROVIDERS: Internal Medicine
PROC: 5A1D70Z Performance of Urinary Filtration, Intermittent, Less than 6 Hours Per Day (ICD-10-PCS; principal; 2017-12-30)
PROC: 0BH17EZ Insertion of Endotracheal Airway into Trachea, Via Natural or Artificial Opening (ICD-10-PCS; 2017-12-30)
PROC: 5A1945Z Respiratory Ventilation, 24-96 Consecutive Hours (ICD-10-PCS; 2017-12-30)
PROC: 02HV33Z Insertion of Infusion Device into Superior Vena Cava, Percutaneous Approach (ICD-10-PCS; 2017-12-30)
DX: E87.5 Hyperkalemia (principal); I46.9 Cardiac arrest, cause unspecified; N18.6 End stage renal disease; J96.00 Acute respiratory failure, unspecified whether with hypoxia or hypercapnia; G92 Toxic encephalopathy; I50.31 Acute diastolic (congestive) heart failure; E11.22 Type 2 diabetes mellitus with diabetic chronic kidney disease; Z99.2 Dependence on renal dialysis; Z79.4 Long term (current) use of insulin; G20 Parkinson's disease; T68.XXXA Hypothermia, initial encounter; Z91.15 Patient's noncompliance with renal dialysis; E87.70 Fluid overload, unspecified; E83.42 Hypomagnesemia; I25.10 Atherosclerotic heart disease of native coronary artery without angina pectoris; Z86.73 Personal history of transient ischemic attack (TIA), and cerebral infarction without residual deficits; E83.39 Other disorders of phosphorus metabolism
CPT/HCPCS: 31500; 36415; 36600; 70450; 71045; 80048; 80053; 80061; 82550; 82553; 82803; 82962; 83036; 83735; 84100; 84132; 84484; 85025; 85610; 85730; 86706; 87081; 87340; 90935; 92526; 92610; 93005; 93306; 94002; 94003; 94664; 94770; 99291-25

== ENCOUNTER 2018-02-18 19:09 | Inpatient (IN) | payer MEDICARE, OTHER ==
[2018-02-18 19:49] LABS: ADD MAN DIFF? NO
[2018-02-18 19:54] LABS: ABNORMAL IP MESSAGE 1; BASOPHILS % 0.7 % (0.0-2.0); EOSINOPHILS # 0.1 10^3/ul (0.0-0.5); EOSINOPHILS % 2.1 % (0.0-7.0); HEMATOCRIT 33.1 % (37.0-47.0); HEMOGLOBIN 10.4 g/dl (12.0-16.0); LYMPHOCYTES # 0.5 10^3/ul (0.8-2.9); LYMPHOCYTES % 7.7 % (15.0-51.0); MEAN CORPUSCULAR HEMOGLOBIN 30.4 pg (29.0-33.0); MEAN CORPUSCULAR HGB CONC 31.4 g/dl (32.0-37.0); MEAN CORPUSCULAR VOLUME 96.8 fl (82.0-101.0); MEAN PLATELET VOLUME 9.8 fl (7.4-10.4); MONOCYTE # 0.4 10^3/ul (0.3-0.9); MONOCYTES % 7.2 % (0.0-11.0); PLATELET COUNT 158 10^3/UL (140-415); RED BLOOD COUNT 3.42 10^6/ul (4.20-5.40)
[2018-02-18 19:54] LABS: WHITE BLOOD COUNT 6.1 10^3/ul (4.8-10.8)
[2018-02-18 20:00] LABS: POSITIVE DIFF @See below
[2018-02-18 20:13] LABS: ALBUMIN 3.9 g/dl (3.3-4.9); ALBUMIN/GLOBULIN RATIO 1.18; ALKALINE PHOSPHATASE 508 IU/L (42-121); ANION GAP 14 (8-16); ASPARTATE AMINO TRANSFERASE 42 IU/L (15-46); BILIRUBIN,INDIRECT 0.5 mg/dl (0-1.1); BILIRUBIN,TOTAL 0.5 mg/dl (0.2-1.3); BLOOD UREA NITROGEN 22 mg/dl (7-20); CARBON DIOXIDE 36 mmol/L (21-31); CHLORIDE 93 mmol/L (97-110); CREATININE 3.56 mg/dl (0.44-1.00); GLUCOSE 130 mg/dl (70-220); SODIUM 139 mmol/L (135-144); TOTAL PROTEIN 7.2 g/dl (6.1-8.1)
[2018-02-18 20:14] LABS: AMMONIA < 9 umol/l (9-30)
[2018-02-18 20:14] LABS: ACETAMINOPHEN < 10.0 ug/ml (10.0-30.0); ETHANOL < 10.0 mg/dl; SALICYLATE < 1.0 mg/dl (5.0-30.0)
[2018-02-18 20:20] LABS: ADD UMIC YES; UR ASCORBIC ACID NEGATIVE (NEGATIVE); UR BACTERIA FEW /HPF (NONE SEEN); UR BILIRUBIN (Dip) NEGATIVE (NEGATIVE); UR BLOOD (Dip) 3+ mg/dL (NEGATIVE); UR CLARITY TURBID (CLEAR); UR COLOR RED (YELLOW); UR GLUCOSE (Dip) NEGATIVE (NEGATIVE); UR KETONES (Dip) NEGATIVE (NEGATIVE); UR LEUKOCYTE ESTERASE (Dip) 2+ Leu/ul (NEGATIVE); UR NITRITE (Dip) NEGATIVE (NEGATIVE); UR RBC 165 /HPF (0-5); UR SPECIFIC GRAVITY (Dip) 1.013 (1.003-1.030); UR TOTAL PROTEIN (Dip) 2+ mg/dl (NEGATIVE); UR UROBILINOGEN (Dip) NEGATIVE (NEGATIVE); UR WBC > 182 /HPF (0-5)
[2018-02-18 20:23] LABS: TROPONIN-I 0.064 ng/ml (0.000-0.120)
[2018-02-18 20:33] LABS: ALANINE AMINOTRANSFERASE 57 IU/L (13-69)
[2018-02-18 20:50] LABS: FREE THYROXINE INDEX (Calc) 2.84 ug/ml (0.65-3.89)
[2018-02-18 20:52] LABS: T3 UPTAKE 39.5 % (23.5-40.5); T4 (THYROXINE) 7.2 ug/dl (5.5-11.0)
[2018-02-18 21:05] LABS: AMPHETAMINE/METHAMPHETAMINE Negative (NEGATIVE); BARBITURATES Negative (NEGATIVE); BENZODIAZEPINES Negative (NEGATIVE); CANNABINOIDS Negative (NEGATIVE); COCAINE Negative (NEGATIVE); OPIATES Negative (NEGATIVE)
[2018-02-18] MEDS: SOD CHLORIDE 0.9% 500 ML IV (21:24)
[2018-02-18] MEDS: CEFEPIME 2GM/50 ML (PMX) 50 ML IVPB (21:24)
[2018-02-18 22:09] LABS: Allen Test ACCEPTAB; Arterial Base Excess 7.8 mmol/L (-3.0-3); Arterial Blood Gas Oxygen Sat 99.3 mmHG (95.0-98.0); Arterial COHb 1.1 % (0.0-3.0); Arterial Fraction of Oxyhgb 98.1 % (93.0-99.0); Arterial HCO3 31.1 mmol/L (22.0-26.0); Arterial MetHb 0.1 % (0.0-1.5); Arterial Total Hemglobin 10.8 g/dl (12.0-18.0); Arterial pCO2 38.4 mmhg (35-45); MODE MASK - NRB; Site Right Radial
[2018-02-19] MEDS: ACETAMINOPHEN 325 MG TAB PO ×4 (04:04→19:47)
[2018-02-19 06:18] LABS: ADD MAN DIFF? NO
[2018-02-19 06:27] LABS: WHITE BLOOD COUNT 7.5 10^3/ul (4.8-10.8)
[2018-02-19 06:27] LABS: ABNORMAL IP MESSAGE 1; BASOPHILS % 0.5 % (0.0-2.0); EOSINOPHILS # 0.1 10^3/ul (0.0-0.5); EOSINOPHILS % 1.5 % (0.0-7.0); HEMOGLOBIN 10.1 g/dl (12.0-16.0); LYMPHOCYTES # 0.3 10^3/ul (0.8-2.9); MEAN CORPUSCULAR HEMOGLOBIN 30.1 pg (29.0-33.0); MEAN CORPUSCULAR HGB CONC 30.6 g/dl (32.0-37.0); MEAN CORPUSCULAR VOLUME 98.5 fl (82.0-101.0); MEAN PLATELET VOLUME 9.3 fl (7.4-10.4); MONOCYTE # 0.5 10^3/ul (0.3-0.9); MONOCYTES % 6.5 % (0.0-11.0); NEUTROPHIL # 6.6 10^3/ul (1.6-7.5); NEUTROPHILS % 87.1 % (39.0-77.0); PLATELET COUNT 140 10^3/UL (140-415); RED BLOOD COUNT 3.35 10^6/ul (4.20-5.40); RED CELL DISTRIBUTION WIDTH 18.9 % (11.5-14.5)
[2018-02-19 06:46] LABS: POSITIVE DIFF @See below
[2018-02-19] MEDS: ENOXAPARIN 30 MG/0.3 ML SYG SC (08:43)
[2018-02-19 08:55] LABS: ANION GAP 18 (8-16); BLOOD UREA NITROGEN 24 mg/dl (7-20); CALCIUM 9.2 mg/dl (8.4-10.2); CARBON DIOXIDE 32 mmol/L (21-31); CHLORIDE 93 mmol/L (97-110); CREATININE 4.51 mg/dl (0.44-1.00); GLUCOSE 141 mg/dl (70-220); POTASSIUM 4.6 mmol/L (3.5-5.1); SODIUM 138 mmol/L (135-144)
[2018-02-19] MEDS ORDERED: VITAMIN A & D 5 GM OINT PACKET TOP (09:54)
[2018-02-19] MEDS ORDERED: ZOLPIDEM 5 MG TAB PO (12:30)
[2018-02-19] MEDS ORDERED: AMLODIPINE 5 MG TAB NGT (12:30)
[2018-02-19] MEDS: CYCLOBENZAPRINE 10 MG TAB PO ×2 (13:00→20:46)
[2018-02-19] MEDS ORDERED: GLUCOSE GEL 15 GRAM TUBE PO ×2 (13:00)
[2018-02-19] MEDS ORDERED: GLUCOSE GEL 15 GRAM TUBE BUCCAL (13:00)
[2018-02-19] MEDS ORDERED: HALOPERIDOL 5 MG INJ IM (13:00)
[2018-02-19] MEDS ORDERED: GLUCAGON 1 MG INJ IM (13:00)
[2018-02-19] MEDS ORDERED: DEXTROSE 50% 50 ML SYRINGE IV ×2 (13:00)
[2018-02-19] MEDS: ROPINIROLE 1 MG TAB PO ×2 (13:43→20:45)
[2018-02-19] MEDS: LORAZEPAM 0.5 MG TAB PO (14:16)
[2018-02-19] MEDS: ASPIRIN 81 MG TAB PO (14:16)
[2018-02-19] MEDS: PREGABALIN 75 MG CAP PO ×2 (14:38→22:51)
[2018-02-19] MEDS: CEFTRIAXONE 1 GM/50 ML (PMX) 50 ML IVPB (14:38)
[2018-02-19] MEDS: morphine 2 MG INJ IV ×2 (17:25→21:17)
[2018-02-19] MEDS: SEVELAMER CARBONATE 2.4 GM PKT PO (17:44)
[2018-02-19] MEDS: INSULIN ASPART [NOVOLOG] 3 ML PEN SC ×2 (17:48→21:00)
[2018-02-19] MEDS ORDERED: SEVELAMER CARBONATE 0.8 GM PKT PO (18:00)
[2018-02-19 19:23] LABS: HEPATITIS B SURFACE ANTIGEN NEGATIVE (NEGATIVE)
[2018-02-19] MEDS: ATORVASTATIN 20 MG TAB PO (20:45)
[2018-02-19] MEDS: INSULIN GLARGINE [LANTus] (100 UNITS/ML) SYG SC (21:00)
[2018-02-19] MEDS ORDERED: PREGABALIN 75 MG CAP PO (21:00)
[2018-02-19] MEDS: ALBUTEROL/IPRATROPIUM (NEB) 3 ML AMP HHN (23:20)
[2018-02-20] MEDS ORDERED: VITAMIN A & D 5 GM OINT PACKET TOP (00:14)
[2018-02-20] MEDS: morphine 2 MG INJ IV ×5 (01:14→23:30)
[2018-02-20] MEDS: ACCU-CHEK XX ×2 (02:00→02:06)
[2018-02-20] MEDS: DIPHENHYDRAMINE 25 MG CAP PO (02:02)
[2018-02-20] MEDS: PANTOPRAZOLE (EC) 40 MG TAB PO (05:20)
[2018-02-20 07:02] LABS: ADD MAN DIFF? NO
[2018-02-20 07:08] LABS: WHITE BLOOD COUNT 8.6 10^3/ul (4.8-10.8)
[2018-02-20 07:08] LABS: ABNORMAL IP MESSAGE 1; BASOPHILS % 0.5 % (0.0-2.0); EOSINOPHILS # 0.2 10^3/ul (0.0-0.5); EOSINOPHILS % 1.9 % (0.0-7.0); HEMATOCRIT 32.9 % (37.0-47.0); HEMOGLOBIN 10.3 g/dl (12.0-16.0); LYMPHOCYTES # 0.4 10^3/ul (0.8-2.9); LYMPHOCYTES % 4.9 % (15.0-51.0); MEAN CORPUSCULAR HEMOGLOBIN 30.2 pg (29.0-33.0); MEAN CORPUSCULAR HGB CONC 31.3 g/dl (32.0-37.0); MEAN CORPUSCULAR VOLUME 96.5 fl (82.0-101.0); MEAN PLATELET VOLUME 9.6 fl (7.4-10.4); MONOCYTE # 0.7 10^3/ul (0.3-0.9); NEUTROPHIL # 7.3 10^3/ul (1.6-7.5); NEUTROPHILS % 84.5 % (39.0-77.0); PLATELET COUNT 138 10^3/UL (140-415); POSITIVE DIFF @See below; RED BLOOD COUNT 3.41 10^6/ul (4.20-5.40); RED CELL DISTRIBUTION WIDTH 18.6 % (11.5-14.5)
[2018-02-20 07:33] LABS: ANION GAP 19 (8-16); BLOOD UREA NITROGEN 45 mg/dl (7-20); CALCIUM 8.9 mg/dl (8.4-10.2); CARBON DIOXIDE 30 mmol/L (21-31); CHLORIDE 92 mmol/L (97-110); CREATININE 6.51 mg/dl (0.44-1.00); GLUCOSE 174 mg/dl (70-220); POTASSIUM 4.8 mmol/L (3.5-5.1); SODIUM 136 mmol/L (135-144)
[2018-02-20] MEDS: ROPINIROLE 1 MG TAB PO ×3 (08:24→21:30)
[2018-02-20] MEDS: SEVELAMER CARBONATE 2.4 GM PKT PO ×3 (08:24→18:39)
[2018-02-20] MEDS: AMLODIPINE 5 MG TAB NGT (08:24)
[2018-02-20] MEDS: ASPIRIN 81 MG TAB PO (08:24)
[2018-02-20] MEDS: CYCLOBENZAPRINE 10 MG TAB PO ×3 (08:25→21:30)
[2018-02-20] MEDS: PREGABALIN 75 MG CAP PO ×2 (08:29→21:32)
[2018-02-20] MEDS: LORAZEPAM 0.5 MG TAB PO (09:34)
[2018-02-20] MEDS: INSULIN ASPART [NOVOLOG] 3 ML PEN SC ×4 (10:08→21:37)
[2018-02-20] MEDS: LIDOCAINE 1% (MDV) 20 ML INJ INFIL (11:07)
[2018-02-20] MEDS: ENOXAPARIN 30 MG/0.3 ML SYG SC (12:37)
[2018-02-20] MEDS: CEFTRIAXONE 1 GM/50 ML (PMX) 50 ML IVPB (15:00)
[2018-02-20] MEDS: ATORVASTATIN 20 MG TAB PO (21:30)
[2018-02-20] MEDS: INSULIN GLARGINE [LANTus] (100 UNITS/ML) SYG SC (21:38)
[2018-02-21] MEDS: LORAZEPAM 0.5 MG TAB PO ×3 (01:10→22:05)
[2018-02-21] MEDS: ALBUTEROL/IPRATROPIUM (NEB) 3 ML AMP HHN (01:18)
[2018-02-21] MEDS: ACCU-CHEK XX (02:52)
[2018-02-21] MEDS: morphine 2 MG INJ IV ×5 (03:33→20:06)
[2018-02-21] MEDS: LIDOCAINE 4% CR TOP ×3 (03:36→16:27)
[2018-02-21] MEDS: PANTOPRAZOLE (EC) 40 MG TAB PO (07:01)
[2018-02-21] MEDS: INSULIN ASPART [NOVOLOG] 3 ML PEN SC ×4 (07:50→20:17)
[2018-02-21] MEDS: SEVELAMER CARBONATE 2.4 GM PKT PO ×3 (08:00→17:59)
[2018-02-21] MEDS: PREGABALIN 75 MG CAP PO ×2 (08:00→21:06)
[2018-02-21] MEDS: ASPIRIN 81 MG TAB PO (08:00)
[2018-02-21] MEDS: CYCLOBENZAPRINE 10 MG TAB PO ×3 (08:00→20:10)
[2018-02-21] MEDS: ROPINIROLE 1 MG TAB PO ×3 (08:00→20:10)
[2018-02-21] MEDS: AMLODIPINE 5 MG TAB NGT (08:01)
[2018-02-21] MEDS ORDERED: VITAMIN A & D 5 GM OINT PACKET TOP (10:11)
[2018-02-21] MEDS: CEFTRIAXONE 1 GM/50 ML (PMX) 50 ML IVPB (11:10)
[2018-02-21] MEDS: ENOXAPARIN 30 MG/0.3 ML SYG SC (11:26)
[2018-02-21] MEDS: DIPHENHYDRAMINE 25 MG CAP PO (12:38)
[2018-02-21] MEDS: CEFEPIME 1GM/50 ML (PMX) 50 ML IVPB (17:59)
[2018-02-21] MEDS: ATORVASTATIN 20 MG TAB PO (20:09)
[2018-02-21] MEDS: INSULIN GLARGINE [LANTus] (100 UNITS/ML) SYG SC (20:18)
[2018-02-22] MEDS: ZOLPIDEM 5 MG TAB PO (00:34)
[2018-02-22] MEDS: morphine 2 MG INJ IV ×5 (01:32→21:39)
[2018-02-22] MEDS: ACCU-CHEK XX (02:15)
[2018-02-22] MEDS: ACETAMINOPHEN 325 MG TAB PO ×3 (02:36→18:53)
[2018-02-22 05:14] LABS: ADD MAN DIFF? NO
[2018-02-22 05:17] LABS: WHITE BLOOD COUNT 7.9 10^3/ul (4.8-10.8)
[2018-02-22 05:17] LABS: ABNORMAL IP MESSAGE 1; BASOPHILS % 0.5 % (0.0-2.0); EOSINOPHILS # 0.2 10^3/ul (0.0-0.5); EOSINOPHILS % 2.5 % (0.0-7.0); HEMATOCRIT 34.5 % (37.0-47.0); HEMOGLOBIN 10.6 g/dl (12.0-16.0); LYMPHOCYTES # 0.6 10^3/ul (0.8-2.9); LYMPHOCYTES % 7.4 % (15.0-51.0); MEAN CORPUSCULAR HEMOGLOBIN 29.2 pg (29.0-33.0); MEAN CORPUSCULAR HGB CONC 30.7 g/dl (32.0-37.0); MEAN PLATELET VOLUME 9.5 fl (7.4-10.4); MONOCYTE # 0.8 10^3/ul (0.3-0.9); MONOCYTES % 10.4 % (0.0-11.0); NEUTROPHIL # 6.2 10^3/ul (1.6-7.5); NEUTROPHILS % 78.8 % (39.0-77.0); PLATELET COUNT 129 10^3/UL (140-415); RED BLOOD COUNT 3.63 10^6/ul (4.20-5.40); RED CELL DISTRIBUTION WIDTH 17.3 % (11.5-14.5)
[2018-02-22 05:39] LABS: ANION GAP 24 (8-16); BLOOD UREA NITROGEN 54 mg/dl (7-20); CALCIUM 9.3 mg/dl (8.4-10.2); CARBON DIOXIDE 24 mmol/L (21-31); CHLORIDE 91 mmol/L (97-110); CREATININE 6.72 mg/dl (0.44-1.00); GLUCOSE 188 mg/dl (70-220); POTASSIUM 5.2 mmol/L (3.5-5.1); SODIUM 134 mmol/L (135-144)
[2018-02-22 05:47] LABS: POSITIVE DIFF @See below
[2018-02-22] MEDS ORDERED: hydrALAzine 20 MG INJ IV (06:00)
[2018-02-22] MEDS: PANTOPRAZOLE (EC) 40 MG TAB PO (06:34)
[2018-02-22] MEDS: INSULIN ASPART [NOVOLOG] 3 ML PEN SC ×4 (07:50→21:00)
[2018-02-22] MEDS: ASPIRIN 81 MG TAB PO (09:15)
[2018-02-22] MEDS: SEVELAMER CARBONATE 2.4 GM PKT PO ×3 (09:15→17:39)
[2018-02-22] MEDS: AMLODIPINE 5 MG TAB NGT (09:16)
[2018-02-22] MEDS: CYCLOBENZAPRINE 10 MG TAB PO ×3 (09:16→21:19)
[2018-02-22] MEDS: ENOXAPARIN 30 MG/0.3 ML SYG SC (09:25)
[2018-02-22] MEDS: PREGABALIN 75 MG CAP PO ×2 (09:26→20:36)
[2018-02-22] MEDS: LIDOCAINE 4% CR TOP ×2 (10:07→18:53)
[2018-02-22] MEDS: LIDOCAINE 1% (MDV) 10 ML INJ INJ (10:17)
[2018-02-22] MEDS: LIDOCAINE 1% (MPF) 5 ML VIAL INJ (10:33)
[2018-02-22] MEDS: LORAZEPAM 0.5 MG TAB PO (10:52)
[2018-02-22] MEDS: DIPHENHYDRAMINE 25 MG CAP PO (10:57)
[2018-02-22] MEDS: HYDROCODONE/APAP (5/325) TAB PO ×2 (13:37→19:25)
[2018-02-22] MEDS: FLUCONAZOLE 200 MG (PMX) 100 ML IVPB (13:38)
[2018-02-22] MEDS: metroNIDAZOLE 500 MG/NS (PMX) 100 ML IVPB ×2 (16:11→21:31)
[2018-02-22] MEDS: CEFEPIME 1GM/50 ML (PMX) 50 ML IVPB (17:57)
[2018-02-22] MEDS: ATORVASTATIN 20 MG TAB PO (20:37)
[2018-02-22] MEDS: ROPINIROLE 1 MG TAB PO (20:37)
[2018-02-22] MEDS: MICONAZOLE 2% 45 GM VAG CR VAG (20:38)
[2018-02-22] MEDS: INSULIN GLARGINE [LANTus] (100 UNITS/ML) SYG SC (21:31)
[2018-02-23] MEDS: ACCU-CHEK XX (01:59)
[2018-02-23] MEDS: morphine 2 MG INJ IV ×5 (01:59→20:34)
[2018-02-23] MEDS: LORAZEPAM 0.5 MG TAB PO ×2 (04:40→23:58)
[2018-02-23 05:04] LABS: ADD MAN DIFF? NO
[2018-02-23 05:07] LABS: WHITE BLOOD COUNT 6.6 10^3/ul (4.8-10.8)
[2018-02-23 05:07] LABS: ABNORMAL IP MESSAGE 1; BASOPHILS % 0.5 % (0.0-2.0); EOSINOPHILS # 0.2 10^3/ul (0.0-0.5); EOSINOPHILS % 2.7 % (0.0-7.0); HEMATOCRIT 32.5 % (37.0-47.0); HEMOGLOBIN 10.2 g/dl (12.0-16.0); LYMPHOCYTES # 0.5 10^3/ul (0.8-2.9); LYMPHOCYTES % 6.9 % (15.0-51.0); MEAN CORPUSCULAR HEMOGLOBIN 29.2 pg (29.0-33.0); MEAN CORPUSCULAR HGB CONC 31.4 g/dl (32.0-37.0); MEAN CORPUSCULAR VOLUME 93.1 fl (82.0-101.0); MONOCYTE # 0.9 10^3/ul (0.3-0.9); NEUTROPHILS % 76.6 % (39.0-77.0); PLATELET COUNT 141 10^3/UL (140-415); RED BLOOD COUNT 3.49 10^6/ul (4.20-5.40); RED CELL DISTRIBUTION WIDTH 16.9 % (11.5-14.5)
[2018-02-23 05:26] LABS: ANION GAP 22 (8-16); BLOOD UREA NITROGEN 47 mg/dl (7-20); CALCIUM 9.2 mg/dl (8.4-10.2); CARBON DIOXIDE 25 mmol/L (21-31); CHLORIDE 91 mmol/L (97-110); CREATININE 4.58 mg/dl (0.44-1.00); GLUCOSE 98 mg/dl (70-220); MAGNESIUM 2.1 mg/dl (1.7-2.5); PHOSPHORUS 7.4 mg/dl (2.5-4.9); POTASSIUM 5.2 mmol/L (3.5-5.1); SODIUM 133 mmol/L (135-144)
[2018-02-23 05:37] LABS: POSITIVE DIFF @See below
[2018-02-23] MEDS: PANTOPRAZOLE (EC) 40 MG TAB PO (06:02)
[2018-02-23] MEDS: metroNIDAZOLE 500 MG/NS (PMX) 100 ML IVPB ×3 (06:03→23:14)
[2018-02-23] MEDS: DIPHENHYDRAMINE 25 MG CAP PO ×3 (06:17→20:30)
[2018-02-23] MEDS: INSULIN ASPART [NOVOLOG] 3 ML PEN SC ×4 (07:50→21:00)
[2018-02-23] MEDS: ASPIRIN 81 MG TAB PO (08:55)
[2018-02-23] MEDS: CYCLOBENZAPRINE 10 MG TAB PO ×3 (08:55→20:30)
[2018-02-23] MEDS: SEVELAMER CARBONATE 2.4 GM PKT PO ×3 (08:55→17:04)
[2018-02-23] MEDS: PREGABALIN 75 MG CAP PO ×2 (08:55→20:30)
[2018-02-23] MEDS: AMLODIPINE 5 MG TAB NGT (08:55)
[2018-02-23] MEDS: DICLOFENAC SODIUM 1% GEL 100 GM TUBE TP (08:56)
[2018-02-23] MEDS: ENOXAPARIN 30 MG/0.3 ML SYG SC (08:57)
[2018-02-23] MEDS: HYDROCODONE/APAP (5/325) TAB PO ×3 (09:07→23:18)
[2018-02-23] MEDS: LIDOCAINE 4% CR TOP (10:12)
[2018-02-23] MEDS: CEFEPIME 1GM/50 ML (PMX) 50 ML IVPB (17:01)
[2018-02-23] MEDS: ROPINIROLE 1 MG TAB PO (20:29)
[2018-02-23] MEDS: ATORVASTATIN 20 MG TAB PO (20:29)
[2018-02-23] MEDS: INSULIN GLARGINE [LANTus] (100 UNITS/ML) SYG SC (20:41)
[2018-02-23] MEDS: MICONAZOLE 2% 45 GM VAG CR VAG (22:00)
[2018-02-23] MEDS: ZOLPIDEM 5 MG TAB PO (23:58)
[2018-02-24] MEDS: morphine 2 MG INJ IV ×5 (00:41→22:05)
[2018-02-24] MEDS: LIDOCAINE 1% (MPF) 5 ML VIAL INJ (01:25)
[2018-02-24] MEDS: ACCU-CHEK XX (02:00)
[2018-02-24] MEDS: PANTOPRAZOLE (EC) 40 MG TAB PO (05:26)
[2018-02-24] MEDS: metroNIDAZOLE 500 MG/NS (PMX) 100 ML IVPB (05:27)
[2018-02-24] MEDS: CYCLOBENZAPRINE 10 MG TAB PO ×3 (08:24→20:56)
[2018-02-24] MEDS: ASPIRIN 81 MG TAB PO (08:24)
[2018-02-24] MEDS: HYDROCODONE/APAP (5/325) TAB PO ×3 (08:24→23:42)
[2018-02-24] MEDS: PREGABALIN 75 MG CAP PO ×2 (08:24→20:56)
[2018-02-24] MEDS: SEVELAMER CARBONATE 2.4 GM PKT PO ×3 (08:24→17:24)
[2018-02-24] MEDS: AMLODIPINE 5 MG TAB NGT (08:25)
[2018-02-24] MEDS: ENOXAPARIN 30 MG/0.3 ML SYG SC (08:26)
[2018-02-24] MEDS: INSULIN ASPART [NOVOLOG] 3 ML PEN SC ×4 (08:30→21:00)
[2018-02-24 08:52] LABS: ADD MAN DIFF? NO
[2018-02-24 08:59] LABS: ABNORMAL IP MESSAGE 1; BASOPHIL # 0.1 10^3/ul (0.0-0.1); EOSINOPHILS # 0.2 10^3/ul (0.0-0.5); HEMATOCRIT 31.9 % (37.0-47.0); HEMOGLOBIN 9.9 g/dl (12.0-16.0); LYMPHOCYTES # 0.4 10^3/ul (0.8-2.9); LYMPHOCYTES % 8.5 % (15.0-51.0); MEAN CORPUSCULAR HEMOGLOBIN 29.1 pg (29.0-33.0); MEAN CORPUSCULAR VOLUME 93.8 fl (82.0-101.0); MONOCYTE # 0.8 10^3/ul (0.3-0.9); MONOCYTES % 17.1 % (0.0-11.0); NEUTROPHIL # 3.4 10^3/ul (1.6-7.5); NEUTROPHILS % 69.4 % (39.0-77.0); PLATELET COUNT 137 10^3/UL (140-415); RED CELL DISTRIBUTION WIDTH 16.9 % (11.5-14.5)
[2018-02-24 08:59] LABS: WHITE BLOOD COUNT 4.9 10^3/ul (4.8-10.8)
[2018-02-24 09:09] LABS: POSITIVE DIFF @See below
[2018-02-24 09:24] LABS: ANION GAP 19 (8-16); BLOOD UREA NITROGEN 35 mg/dl (7-20); CALCIUM 9.1 mg/dl (8.4-10.2); CARBON DIOXIDE 29 mmol/L (21-31); CHLORIDE 93 mmol/L (97-110); GLUCOSE 177 mg/dl (70-220); MAGNESIUM 2.1 mg/dl (1.7-2.5); PHOSPHORUS 6.7 mg/dl (2.5-4.9); POTASSIUM 4.4 mmol/L (3.5-5.1); SODIUM 137 mmol/L (135-144)
[2018-02-24] MEDS: LORAZEPAM 0.5 MG TAB PO ×2 (14:05→22:19)
[2018-02-24] MEDS: DIPHENHYDRAMINE 25 MG CAP PO (14:05)
[2018-02-24] MEDS: ERTAPENEM SODIUM 0.5 GM in SOD CHLORIDE 0.9% 100 ML IVPB (17:24)
[2018-02-24] MEDS: ATORVASTATIN 20 MG TAB PO (20:56)
[2018-02-24] MEDS: ROPINIROLE 1 MG TAB PO (20:57)
[2018-02-24] MEDS: MICONAZOLE 2% 45 GM VAG CR VAG (21:00)
[2018-02-24] MEDS: INSULIN GLARGINE [LANTus] (100 UNITS/ML) SYG SC (22:08)
[2018-02-25] MEDS: ACETAMINOPHEN 325 MG TAB PO (00:49)
[2018-02-25] MEDS: ZOLPIDEM 5 MG TAB PO (00:53)
[2018-02-25] MEDS: ACCU-CHEK XX (02:00)
[2018-02-25] MEDS: ALBUTEROL/IPRATROPIUM (NEB) 3 ML AMP HHN (02:26)
[2018-02-25] MEDS: morphine 2 MG INJ IV ×5 (02:48→17:35)
[2018-02-25] MEDS: CYCLOBENZAPRINE 10 MG TAB PO (03:51)
[2018-02-25] MEDS: LIDOCAINE 4% CR TOP (03:54)
[2018-02-25] MEDS: PANTOPRAZOLE (EC) 40 MG TAB PO ×2 (06:00→06:26)
[2018-02-25] MEDS: HYDROCODONE/APAP (5/325) TAB PO ×2 (06:25→11:58)
[2018-02-25] MEDS: INSULIN ASPART [NOVOLOG] 3 ML PEN SC ×3 (07:50→17:46)
[2018-02-25] MEDS: SEVELAMER CARBONATE 2.4 GM PKT PO ×3 (08:54→17:34)
[2018-02-25] MEDS: AMLODIPINE 5 MG TAB NGT (08:55)
[2018-02-25] MEDS: ASPIRIN 81 MG TAB PO (08:55)
[2018-02-25] MEDS: ENOXAPARIN 30 MG/0.3 ML SYG SC (08:56)
[2018-02-25] MEDS: PREGABALIN 75 MG CAP PO (08:56)
[2018-02-25] MEDS: ERTAPENEM SODIUM 0.5 GM in SOD CHLORIDE 0.9% 100 ML IVPB (15:09)
[2018-02-25] MEDS: LORAZEPAM 0.5 MG TAB PO (17:34)
== END 2018-02-25 19:00 | DRG 689 ==
LOC: 6WM 02-19 00:05 → E/R 19:09 → 6WM 02-19 02:37 → MS1 02-19 22:30
PROVIDERS: Internal Medicine
PROC: 5A1D70Z Performance of Urinary Filtration, Intermittent, Less than 6 Hours Per Day (ICD-10-PCS; principal; 2018-02-20)
PROC: 5A1D70Z Performance of Urinary Filtration, Intermittent, Less than 6 Hours Per Day (ICD-10-PCS; 2018-02-22)
PROC: 5A1D70Z Performance of Urinary Filtration, Intermittent, Less than 6 Hours Per Day (ICD-10-PCS; 2018-02-24)
DX: N39.0 Urinary tract infection, site not specified (principal); G92 Toxic encephalopathy; N18.6 End stage renal disease; I13.2 Hypertensive heart and chronic kidney disease with heart failure and with stage 5 chronic kidney disease, or end stage renal disease; T82.858A Stenosis of other vascular prosthetic devices, implants and grafts, initial encounter; E11.22 Type 2 diabetes mellitus with diabetic chronic kidney disease; Z99.2 Dependence on renal dialysis; Z86.73 Personal history of transient ischemic attack (TIA), and cerebral infarction without residual deficits; I25.10 Atherosclerotic heart disease of native coronary artery without angina pectoris; I50.9 Heart failure, unspecified; F41.9 Anxiety disorder, unspecified; G20 Parkinson's disease; E83.9 Disorder of mineral metabolism, unspecified; B96.20 Unspecified Escherichia coli [E. coli] as the cause of diseases classified elsewhere; E11.40 Type 2 diabetes mellitus with diabetic neuropathy, unspecified; E87.5 Hyperkalemia; D64.9 Anemia, unspecified; E87.6 Hypokalemia; Y71.8 Miscellaneous cardiovascular devices associated with adverse incidents, not elsewhere classified
CPT/HCPCS: 36415; 36600; 70450; 71045; 80048; 80053; 80307; 81001; 82140; 82803; 82962; 83735; 84100; 84436; 84479; 84484; 85025; 87081; 87086; 87340; 90935; 93005; 93971; 94640; 94664; 96374; 99285-25

== ENCOUNTER 2018-02-26 17:58 | Inpatient (IN) | payer MEDICARE, OTHER ==
[2018-02-26 18:38] LABS: ADD MAN DIFF? NO
[2018-02-26 18:44] LABS: WHITE BLOOD COUNT 6.1 10^3/ul (4.8-10.8)
[2018-02-26 18:44] LABS: ABNORMAL IP MESSAGE 1; BASOPHILS % 0.5 % (0.0-2.0); EOSINOPHILS # 0.1 10^3/ul (0.0-0.5); EOSINOPHILS % 1.8 % (0.0-7.0); HEMATOCRIT 28.6 % (37.0-47.0); LYMPHOCYTES # 0.5 10^3/ul (0.8-2.9); LYMPHOCYTES % 8.2 % (15.0-51.0); MEAN CORPUSCULAR HEMOGLOBIN 29.2 pg (29.0-33.0); MEAN CORPUSCULAR HGB CONC 31.5 g/dl (32.0-37.0); MEAN CORPUSCULAR VOLUME 92.9 fl (82.0-101.0); MEAN PLATELET VOLUME 10.1 fl (7.4-10.4); MONOCYTE # 1.1 10^3/ul (0.3-0.9); MONOCYTES % 17.9 % (0.0-11.0); NEUTROPHIL # 4.3 10^3/ul (1.6-7.5); NEUTROPHILS % 71.3 % (39.0-77.0); PLATELET COUNT 149 10^3/UL (140-415); RED BLOOD COUNT 3.08 10^6/ul (4.20-5.40); RED CELL DISTRIBUTION WIDTH 16.4 % (11.5-14.5)
[2018-02-26 18:47] LABS: POSITIVE DIFF @See below
[2018-02-26 19:02] LABS: ANION GAP 22 (8-16); BLOOD UREA NITROGEN 56 mg/dl (7-20); CALCIUM 8.7 mg/dl (8.4-10.2); CARBON DIOXIDE 24 mmol/L (21-31); CHLORIDE 92 mmol/L (97-110); CREATININE 5.47 mg/dl (0.44-1.00); GLUCOSE 208 mg/dl (70-220); POTASSIUM 5.4 mmol/L (3.5-5.1); SODIUM 133 mmol/L (135-144)
[2018-02-26] MEDS ORDERED: ONDANSETRON 4 MG INJ IV (19:30)
[2018-02-26] MEDS ORDERED: ACETAMINOPHEN 325 MG TAB PO (19:30)
[2018-02-26] MEDS: LORAZEPAM 2 MG INJ IV (19:50)
[2018-02-26] MEDS ORDERED: ALBUTEROL/IPRATROPIUM (NEB) 3 ML AMP HHN (21:30)
[2018-02-26] MEDS ORDERED: DICLOFENAC SODIUM 1% GEL 100 GM TUBE TP ×2 (21:30→22:00)
[2018-02-26] MEDS ORDERED: GLUCAGON 1 MG INJ IM (22:00)
[2018-02-26] MEDS ORDERED: GLUCOSE GEL 15 GRAM TUBE PO ×2 (22:00)
[2018-02-26] MEDS ORDERED: GLUCOSE GEL 15 GRAM TUBE BUCCAL (22:00)
[2018-02-26] MEDS ORDERED: DEXTROSE 50% 50 ML SYRINGE IV ×2 (22:00)
[2018-02-26] MEDS: PREGABALIN 75 MG CAP PO (23:27)
[2018-02-26] MEDS: ROPINIROLE 1 MG TAB PO (23:27)
[2018-02-26] MEDS: HYDROCODONE/APAP (5/325) TAB PO (23:28)
[2018-02-26] MEDS: ZOLPIDEM 5 MG TAB PO (23:55)
[2018-02-27] MEDS: ACCUCHECK AT 2AM (Patients on SS coverage) XX ×2 (02:00→21:40)
[2018-02-27] MEDS: HYDROCODONE/APAP (5/325) TAB PO ×2 (06:48→13:21)
[2018-02-27] MEDS: PANTOPRAZOLE (EC) 40 MG TAB PO (06:48)
[2018-02-27] MEDS ORDERED: VITAMIN A & D 5 GM OINT PACKET TOP (06:51)
[2018-02-27] MEDS ORDERED: LIDOCAINE 1% (MPF) 5 ML VIAL INJ (07:30)
[2018-02-27] MEDS: INSULIN ASPART [NOVOLOG] 3 ML PEN SC ×4 (07:50→21:00)
[2018-02-27] MEDS ORDERED: ALBUMIN HUMAN 25% 100 ML IV (08:30)
[2018-02-27] MEDS: AMLODIPINE 5 MG TAB PO ×3 (09:00→20:57)
[2018-02-27] MEDS: LIDOCAINE 4% CR TOP (09:00)
[2018-02-27] MEDS: ASPIRIN 81 MG TAB PO (09:03)
[2018-02-27] MEDS: SEVELAMER CARBONATE 800 MG TABLET PO ×3 (09:03→17:43)
[2018-02-27] MEDS: LORAZEPAM 0.5 MG TAB PO ×2 (09:03→17:43)
[2018-02-27] MEDS: PREGABALIN 75 MG CAP PO ×2 (09:03→20:57)
[2018-02-27 15:30] LABS: ADD MAN DIFF? NO
[2018-02-27 15:31] LABS: WHITE BLOOD COUNT 6.5 10^3/ul (4.8-10.8)
[2018-02-27 15:31] LABS: ABNORMAL IP MESSAGE 1; BASOPHIL # 0.1 10^3/ul (0.0-0.1); BASOPHILS % 0.8 % (0.0-2.0); EOSINOPHILS # 0.1 10^3/ul (0.0-0.5); EOSINOPHILS % 1.9 % (0.0-7.0); HEMATOCRIT 31.3 % (37.0-47.0); HEMOGLOBIN 9.9 g/dl (12.0-16.0); LYMPHOCYTES # 0.5 10^3/ul (0.8-2.9); LYMPHOCYTES % 7.3 % (15.0-51.0); MEAN CORPUSCULAR HEMOGLOBIN 29.4 pg (29.0-33.0); MEAN CORPUSCULAR HGB CONC 31.6 g/dl (32.0-37.0); MEAN CORPUSCULAR VOLUME 92.9 fl (82.0-101.0); MEAN PLATELET VOLUME 9.4 fl (7.4-10.4); MONOCYTE # 0.9 10^3/ul (0.3-0.9); MONOCYTES % 14.6 % (0.0-11.0); NEUTROPHIL # 4.8 10^3/ul (1.6-7.5); NEUTROPHILS % 74.9 % (39.0-77.0); PLATELET COUNT 167 10^3/UL (140-415); RED BLOOD COUNT 3.37 10^6/ul (4.20-5.40)
[2018-02-27 15:38] LABS: POSITIVE DIFF @See below
[2018-02-27 15:55] LABS: ANION GAP 19 (8-16); BLOOD UREA NITROGEN 31 mg/dl (7-20); CALCIUM 9.3 mg/dl (8.4-10.2); CARBON DIOXIDE 28 mmol/L (21-31); CHLORIDE 94 mmol/L (97-110); CREATININE 3.95 mg/dl (0.44-1.00); GLUCOSE 162 mg/dl (70-220); POTASSIUM 4.3 mmol/L (3.5-5.1); SODIUM 137 mmol/L (135-144)
[2018-02-27] MEDS: morphine 2 MG INJ IV (19:43)
[2018-02-27] MEDS: CYCLOBENZAPRINE 10 MG TAB PO (20:55)
[2018-02-27] MEDS: ATORVASTATIN 20 MG TAB PO (20:56)
[2018-02-27] MEDS: ROPINIROLE 1 MG TAB PO (20:56)
[2018-02-27] MEDS: INSULIN GLARGINE [LANTus] (100 UNITS/ML) SYG SC (21:00)
[2018-02-28] MEDS: morphine 2 MG INJ IV ×5 (00:39→20:49)
[2018-02-28] MEDS: ZOLPIDEM 5 MG TAB PO (00:39)
[2018-02-28 01:13] LABS: CREATINE KINASE 125 IU/L (23-200)
[2018-02-28 01:25] LABS: CK INDEX 1.7; CK-MB 2.14 ng/ml (0.0-2.4)
[2018-02-28] MEDS: LORAZEPAM 0.5 MG TAB PO ×3 (03:58→19:58)
[2018-02-28 05:01] LABS: ABNORMAL IP MESSAGE 1; ADD MAN DIFF? NO; BASOPHIL # 0.1 10^3/ul (0.0-0.1); BASOPHILS % 1.1 % (0.0-2.0); EOSINOPHILS # 0.1 10^3/ul (0.0-0.5); EOSINOPHILS % 1.1 % (0.0-7.0); HEMATOCRIT 32.1 % (37.0-47.0); HEMOGLOBIN 9.9 g/dl (12.0-16.0); LYMPHOCYTES # 0.5 10^3/ul (0.8-2.9); LYMPHOCYTES % 7.1 % (15.0-51.0); MEAN CORPUSCULAR HEMOGLOBIN 29.2 pg (29.0-33.0); MEAN CORPUSCULAR HGB CONC 30.8 g/dl (32.0-37.0); MEAN CORPUSCULAR VOLUME 94.7 fl (82.0-101.0); MONOCYTES % 14.8 % (0.0-11.0); NEUTROPHIL # 5.3 10^3/ul (1.6-7.5); NEUTROPHILS % 75.6 % (39.0-77.0); PLATELET COUNT 174 10^3/UL (140-415); RED BLOOD COUNT 3.39 10^6/ul (4.20-5.40); RED CELL DISTRIBUTION WIDTH 16.2 % (11.5-14.5)
[2018-02-28 05:11] LABS: POSITIVE DIFF @See below
[2018-02-28 05:25] LABS: CREATINE KINASE 124 IU/L (23-200)
[2018-02-28 05:36] LABS: CK INDEX 2.1; CK-MB 2.57 ng/ml (0.0-2.4); TROPONIN-I 0.096 ng/ml (0.000-0.120)
[2018-02-28] MEDS: PANTOPRAZOLE (EC) 40 MG TAB PO (05:55)
[2018-02-28 07:00] LABS: ANION GAP 21 (8-16); BLOOD UREA NITROGEN 40 mg/dl (7-20); CALCIUM 9.2 mg/dl (8.4-10.2); CARBON DIOXIDE 26 mmol/L (21-31); CHLORIDE 94 mmol/L (97-110); CREATININE 5.08 mg/dl (0.44-1.00); GLUCOSE 150 mg/dl (70-220); MAGNESIUM 2.3 mg/dl (1.7-2.5); PHOSPHORUS 7.5 mg/dl (2.5-4.9); POTASSIUM 4.6 mmol/L (3.5-5.1); SODIUM 136 mmol/L (135-144)
[2018-02-28] MEDS: AMLODIPINE 5 MG TAB PO ×2 (09:00→20:42)
[2018-02-28] MEDS: INSULIN ASPART [NOVOLOG] 3 ML PEN SC ×4 (09:16→20:48)
[2018-02-28] MEDS: SEVELAMER CARBONATE 800 MG TABLET PO ×3 (09:26→18:02)
[2018-02-28] MEDS: ASPIRIN 81 MG TAB PO (09:26)
[2018-02-28] MEDS: PREGABALIN 75 MG CAP PO ×2 (09:39→20:42)
[2018-02-28] MEDS: CYCLOBENZAPRINE 10 MG TAB PO (11:11)
[2018-02-28] MEDS: DIPHENHYDRAMINE 25 MG CAP PO (16:37)
[2018-02-28] MEDS: HYDROCODONE/APAP (5/325) TAB PO (18:02)
[2018-02-28] MEDS: ROPINIROLE 1 MG TAB PO (20:38)
[2018-02-28] MEDS: ATORVASTATIN 20 MG TAB PO (20:38)
[2018-02-28] MEDS: INSULIN GLARGINE [LANTus] (100 UNITS/ML) SYG SC (20:47)
[2018-03-01] MEDS: ACCUCHECK AT 2AM (Patients on SS coverage) XX (02:00)
[2018-03-01] MEDS: ZOLPIDEM 5 MG TAB PO (02:03)
[2018-03-01 05:16] LABS: ADD MAN DIFF? NO
[2018-03-01 05:19] LABS: ABNORMAL IP MESSAGE 1; BASOPHIL # 0.1 10^3/ul (0.0-0.1); EOSINOPHILS # 0.1 10^3/ul (0.0-0.5); EOSINOPHILS % 1.5 % (0.0-7.0); HEMATOCRIT 30.7 % (37.0-47.0); HEMOGLOBIN 9.6 g/dl (12.0-16.0); LYMPHOCYTES # 0.5 10^3/ul (0.8-2.9); LYMPHOCYTES % 5.8 % (15.0-51.0); MEAN CORPUSCULAR HEMOGLOBIN 29.4 pg (29.0-33.0); MEAN CORPUSCULAR HGB CONC 31.3 g/dl (32.0-37.0); MEAN CORPUSCULAR VOLUME 94.2 fl (82.0-101.0); MONOCYTE # 1.1 10^3/ul (0.3-0.9); MONOCYTES % 14.3 % (0.0-11.0); NEUTROPHILS % 76.9 % (39.0-77.0); PLATELET COUNT 173 10^3/UL (140-415); RED BLOOD COUNT 3.26 10^6/ul (4.20-5.40); RED CELL DISTRIBUTION WIDTH 16.3 % (11.5-14.5)
[2018-03-01 05:19] LABS: WHITE BLOOD COUNT 7.8 10^3/ul (4.8-10.8)
[2018-03-01 05:36] LABS: POSITIVE DIFF @See below
[2018-03-01 05:41] LABS: ANION GAP 16 (8-16); BLOOD UREA NITROGEN 31 mg/dl (7-20); CARBON DIOXIDE 28 mmol/L (21-31); CHLORIDE 98 mmol/L (97-110); CREATININE 3.86 mg/dl (0.44-1.00); GLUCOSE 142 mg/dl (70-220); POTASSIUM 4.6 mmol/L (3.5-5.1); SODIUM 137 mmol/L (135-144)
[2018-03-01] MEDS: PANTOPRAZOLE (EC) 40 MG TAB PO (05:43)
[2018-03-01] MEDS: morphine 2 MG INJ IV ×4 (05:44→22:59)
[2018-03-01] MEDS: INSULIN ASPART [NOVOLOG] 3 ML PEN SC ×4 (07:50→21:41)
[2018-03-01] MEDS: SEVELAMER CARBONATE 800 MG TABLET PO ×3 (08:18→18:05)
[2018-03-01] MEDS: AMLODIPINE 5 MG TAB PO ×2 (08:18→21:35)
[2018-03-01] MEDS: PREGABALIN 75 MG CAP PO ×2 (08:18→21:34)
[2018-03-01] MEDS: ASPIRIN 81 MG TAB PO (08:18)
[2018-03-01] MEDS: HYDROCODONE/APAP (5/325) TAB PO ×2 (08:19→19:53)
[2018-03-01] MEDS: LORAZEPAM 0.5 MG TAB PO ×2 (11:53→23:01)
[2018-03-01] MEDS: LIDOCAINE 1% (MPF) 5 ML VIAL INFIL (12:38)
[2018-03-01] MEDS: LIDOCAINE 5% 35 GM OINT TOP ×2 (13:38→21:36)
[2018-03-01] MEDS: ACETAMINOPHEN 325 MG TAB PO (18:05)
[2018-03-01] MEDS: CYCLOBENZAPRINE 10 MG TAB PO (19:48)
[2018-03-01] MEDS: ROPINIROLE 1 MG TAB PO (21:34)
[2018-03-01] MEDS: ATORVASTATIN 20 MG TAB PO (21:34)
[2018-03-01] MEDS: INSULIN GLARGINE [LANTus] (100 UNITS/ML) SYG SC (21:40)
[2018-03-02] MEDS: ZOLPIDEM 5 MG TAB PO ×2 (00:32→19:54)
[2018-03-02] MEDS: ACCUCHECK AT 2AM (Patients on SS coverage) XX (02:00)
[2018-03-02] MEDS: morphine 2 MG INJ IV ×5 (02:54→22:15)
[2018-03-02] MEDS: PANTOPRAZOLE (EC) 40 MG TAB PO (05:38)
[2018-03-02] MEDS: HYDROCODONE/APAP (5/325) TAB PO ×2 (05:38→14:09)
[2018-03-02] MEDS: INSULIN ASPART [NOVOLOG] 3 ML PEN SC ×4 (07:50→21:00)
[2018-03-02] MEDS: LIDOCAINE 5% 35 GM OINT TOP ×3 (08:50→21:00)
[2018-03-02] MEDS: SEVELAMER CARBONATE 800 MG TABLET PO ×3 (08:51→17:38)
[2018-03-02] MEDS: PREGABALIN 75 MG CAP PO ×2 (08:51→21:00)
[2018-03-02] MEDS: ASPIRIN 81 MG TAB PO (08:51)
[2018-03-02] MEDS: AMLODIPINE 5 MG TAB PO ×2 (08:52→21:00)
[2018-03-02] MEDS: LORAZEPAM 0.5 MG TAB PO (19:54)
[2018-03-02] MEDS: CYCLOBENZAPRINE 10 MG TAB PO (20:19)
[2018-03-02] MEDS: LIDOCAINE 1% (MDV) 20 ML INJ INJ (20:27)
[2018-03-02] MEDS: INSULIN GLARGINE [LANTus] (100 UNITS/ML) SYG SC (20:36)
[2018-03-02] MEDS: ROPINIROLE 1 MG TAB PO (21:00)
[2018-03-02] MEDS: ATORVASTATIN 20 MG TAB PO (21:00)
[2018-03-02] MEDS: DIPHENHYDRAMINE 25 MG CAP PO (22:20)
[2018-03-02] MEDS: DIPHENHYDRAMINE 50 MG INJ IV (23:40)
[2018-03-03] MEDS: HYDROCODONE/APAP (5/325) TAB PO ×2 (00:20→18:06)
[2018-03-03] MEDS: PREGABALIN 75 MG CAP PO ×3 (01:20→21:01)
[2018-03-03] MEDS: ROPINIROLE 1 MG TAB PO ×2 (01:21→21:01)
[2018-03-03] MEDS: ATORVASTATIN 20 MG TAB PO ×2 (01:21→21:00)
[2018-03-03] MEDS: ACETAMINOPHEN 325 MG TAB PO (01:21)
[2018-03-03] MEDS: ACCUCHECK AT 2AM (Patients on SS coverage) XX (02:00)
[2018-03-03] MEDS: morphine 2 MG INJ IV ×4 (02:22→21:02)
[2018-03-03] MEDS: LORAZEPAM 0.5 MG TAB PO ×3 (04:13→21:35)
[2018-03-03] MEDS: PANTOPRAZOLE (EC) 40 MG TAB PO (07:01)
[2018-03-03] MEDS: ASPIRIN 81 MG TAB PO (09:27)
[2018-03-03] MEDS: DIPHENHYDRAMINE 25 MG CAP PO (09:28)
[2018-03-03] MEDS: SEVELAMER CARBONATE 800 MG TABLET PO ×3 (09:28→18:07)
[2018-03-03] MEDS: AMLODIPINE 5 MG TAB PO ×2 (09:29→21:02)
[2018-03-03] MEDS: INSULIN ASPART [NOVOLOG] 3 ML PEN SC ×4 (09:30→21:09)
[2018-03-03] MEDS: LIDOCAINE 1% (MPF) 5 ML VIAL INFIL (10:27)
[2018-03-03] MEDS: LIDOCAINE 5% 35 GM OINT TOP ×3 (11:20→21:01)
[2018-03-03] MEDS: CYCLOBENZAPRINE 10 MG TAB PO (11:48)
[2018-03-03] MEDS: INSULIN GLARGINE [LANTus] (100 UNITS/ML) SYG SC (21:10)
[2018-03-04] MEDS: DIPHENHYDRAMINE 25 MG CAP PO ×2 (00:41→14:43)
[2018-03-04] MEDS: morphine 2 MG INJ IV ×5 (00:41→20:11)
[2018-03-04] MEDS: CYCLOBENZAPRINE 10 MG TAB PO ×2 (01:33→09:04)
[2018-03-04] MEDS: ZOLPIDEM 5 MG TAB PO ×2 (01:34→23:54)
[2018-03-04] MEDS: ACCUCHECK AT 2AM (Patients on SS coverage) XX (02:25)
[2018-03-04] MEDS: HYDROCODONE/APAP (5/325) TAB PO ×3 (03:01→21:04)
[2018-03-04 04:52] LABS: ADD MAN DIFF? NO
[2018-03-04 04:58] LABS: WHITE BLOOD COUNT 6.6 10^3/ul (4.8-10.8)
[2018-03-04 04:58] LABS: RED BLOOD COUNT 3.41 10^6/ul (4.20-5.40)
[2018-03-04 04:59] LABS: BASOPHIL # 0.1 10^3/ul (0.0-0.1); BASOPHILS % 1.4 % (0.0-2.0); EOSINOPHILS # 0.2 10^3/ul (0.0-0.5); EOSINOPHILS % 2.4 % (0.0-7.0); HEMATOCRIT 32.7 % (37.0-47.0); LYMPHOCYTES # 0.6 10^3/ul (0.8-2.9); LYMPHOCYTES % 9.3 % (15.0-51.0); MEAN CORPUSCULAR HEMOGLOBIN 29.3 pg (29.0-33.0); MEAN CORPUSCULAR HGB CONC 30.6 g/dl (32.0-37.0); MEAN CORPUSCULAR VOLUME 95.9 fl (82.0-101.0); MEAN PLATELET VOLUME 9.8 fl (7.4-10.4); MONOCYTE # 1.1 10^3/ul (0.3-0.9); MONOCYTES % 16.1 % (0.0-11.0); NEUTROPHIL # 4.6 10^3/ul (1.6-7.5); NEUTROPHILS % 70.2 % (39.0-77.0); PLATELET COUNT 172 10^3/UL (140-415); RED CELL DISTRIBUTION WIDTH 15.8 % (11.5-14.5)
[2018-03-04 05:14] LABS: ANION GAP 15 (8-16); BLOOD UREA NITROGEN 19 mg/dl (7-20); CALCIUM 9.3 mg/dl (8.4-10.2); CARBON DIOXIDE 30 mmol/L (21-31); CHLORIDE 99 mmol/L (97-110); CREATININE 3.13 mg/dl (0.44-1.00); GLUCOSE 160 mg/dl (70-220); POTASSIUM 4.2 mmol/L (3.5-5.1); SODIUM 140 mmol/L (135-144)
[2018-03-04] MEDS: PANTOPRAZOLE (EC) 40 MG TAB PO (05:39)
[2018-03-04] MEDS: INSULIN ASPART [NOVOLOG] 3 ML PEN SC ×4 (09:02→20:10)
[2018-03-04] MEDS: SEVELAMER CARBONATE 800 MG TABLET PO ×3 (09:03→18:05)
[2018-03-04] MEDS: PREGABALIN 75 MG CAP PO ×2 (09:04→20:10)
[2018-03-04] MEDS: ASPIRIN 81 MG TAB PO (09:04)
[2018-03-04] MEDS: AMLODIPINE 5 MG TAB PO ×2 (09:04→20:11)
[2018-03-04] MEDS: LIDOCAINE 5% 35 GM OINT TOP ×3 (09:05→20:15)
[2018-03-04] MEDS: LORAZEPAM 0.5 MG TAB PO (14:43)
[2018-03-04] MEDS: LIDOCAINE 1% (MPF) 5 ML VIAL INFIL (15:25)
[2018-03-04] MEDS: INSULIN GLARGINE [LANTus] (100 UNITS/ML) SYG SC (20:10)
[2018-03-04] MEDS: ROPINIROLE 1 MG TAB PO (20:10)
[2018-03-04] MEDS: ATORVASTATIN 20 MG TAB PO (20:10)
[2018-03-04] MEDS: morphine LIQ (10 MG/5 ML) CUP PO (23:54)
[2018-03-05] MEDS: ACCUCHECK AT 2AM (Patients on SS coverage) XX (02:20)
[2018-03-05] MEDS: morphine LIQ (10 MG/5 ML) CUP PO ×2 (05:27→12:39)
[2018-03-05] MEDS: PANTOPRAZOLE (EC) 40 MG TAB PO (05:27)
[2018-03-05] MEDS: INSULIN ASPART [NOVOLOG] 3 ML PEN SC ×2 (07:50→13:12)
[2018-03-05] MEDS: PREGABALIN 75 MG CAP PO (07:55)
[2018-03-05] MEDS: ASPIRIN 81 MG TAB PO (07:55)
[2018-03-05] MEDS: SEVELAMER CARBONATE 800 MG TABLET PO ×2 (07:55→12:47)
[2018-03-05] MEDS: LIDOCAINE 5% 35 GM OINT TOP ×2 (07:56→12:49)
[2018-03-05] MEDS: AMLODIPINE 5 MG TAB PO (07:56)
[2018-03-05] MEDS: HYDROCODONE/APAP (5/325) TAB PO (07:56)
[2018-03-05] MEDS: CYCLOBENZAPRINE 10 MG TAB PO (09:10)
[2018-03-05] MEDS: DIPHENHYDRAMINE 25 MG CAP PO (12:47)
[2018-03-05] MEDS: ACETAMINOPHEN 325 MG TAB PO (15:10)
== END 2018-03-05 15:30 | DRG 291 ==
LOC: MS1 20:45 → E/R 17:58 → MS1 19:10
PROC: 5A1D70Z Performance of Urinary Filtration, Intermittent, Less than 6 Hours Per Day (ICD-10-PCS; principal; 2018-03-02)
DX: I13.2 Hypertensive heart and chronic kidney disease with heart failure and with stage 5 chronic kidney disease, or end stage renal disease (principal); N18.6 End stage renal disease; I50.33 Acute on chronic diastolic (congestive) heart failure; E87.1 Hypo-osmolality and hyponatremia; Z99.2 Dependence on renal dialysis; N39.0 Urinary tract infection, site not specified; E87.5 Hyperkalemia; E11.22 Type 2 diabetes mellitus with diabetic chronic kidney disease; F41.9 Anxiety disorder, unspecified; E78.5 Hyperlipidemia, unspecified; Z91.14 Patient's other noncompliance with medication regimen; G20 Parkinson's disease; E11.51 Type 2 diabetes mellitus with diabetic peripheral angiopathy without gangrene; D64.9 Anemia, unspecified; Z86.74 Personal history of sudden cardiac arrest; Z79.4 Long term (current) use of insulin; Z79.82 Long term (current) use of aspirin; Z86.73 Personal history of transient ischemic attack (TIA), and cerebral infarction without residual deficits
CPT/HCPCS: 71045; 80048; 82550; 82553; 82962; 83735; 84100; 84484; 85025; 87081; 90935; 93005; 93306; 93922; 99217; 99285-25

== ENCOUNTER 2018-08-07 19:27 | Observation (INO) | payer MEDICARE, OTHER ==
[2018-08-07] MEDS: NALOXONE (0.4 MG/ML) INJ IV (20:04)
[2018-08-07 20:09] LABS: ADD MAN DIFF? NO
[2018-08-07 20:10] LABS: BASOPHIL # 0.1 10^3/ul (0.0-0.1); BASOPHILS % 0.8 % (0.0-2.0); EOSINOPHILS # 0.1 10^3/ul (0.0-0.5); EOSINOPHILS % 0.8 % (0.0-7.0); HEMATOCRIT 26.3 % (37.0-47.0); HEMOGLOBIN 8.1 g/dl (12.0-16.0); LYMPHOCYTES # 0.7 10^3/ul (0.8-2.9); LYMPHOCYTES % 11.1 % (15.0-51.0); MEAN CORPUSCULAR HGB CONC 30.8 g/dl (32.0-37.0); MEAN PLATELET VOLUME 9.5 fl (7.4-10.4); MONOCYTE # 0.9 10^3/ul (0.3-0.9); MONOCYTES % 13.9 % (0.0-11.0); NEUTROPHIL # 4.6 10^3/ul (1.6-7.5); NUCLEATED RED BLOOD CELLS # 0.1 10^3/ul (0.0-0.0); NUCLEATED RED BLOOD CELLS% 1.2 /100WBC (0.0-0.0); PLATELET COUNT 194 10^3/UL (140-415); RED BLOOD COUNT 2.89 10^6/ul (4.20-5.40); RED CELL DISTRIBUTION WIDTH 16.8 % (11.5-14.5)
[2018-08-07 20:10] LABS: WHITE BLOOD COUNT 6.4 10^3/ul (4.8-10.8)
[2018-08-07 20:12] LABS: AADO2 Arterial 128.1 mmHg (7.0-24.0); Arterial Base Excess 5.4 mmol/L (-3.0-3); Arterial Blood Gas Oxygen Sat 84.8 mmHG (95.0-98.0); Arterial COHb 0.5 % (0.0-3.0); Arterial Fraction of Oxyhgb 84.2 % (93.0-99.0); Arterial HCO3 30.1 mmol/L (22.0-26.0); Arterial MetHb 0.2 % (0.0-1.5); Arterial pCO2 45.3 mmhg (35-45); MODE NASAL CANNULA
[2018-08-07 20:44] LABS: ALANINE AMINOTRANSFERASE 35 IU/L (13-69); ALBUMIN 4.1 g/dl (3.3-4.9); ALBUMIN/GLOBULIN RATIO 1.24; ALKALINE PHOSPHATASE 357 IU/L (42-121); ANION GAP 13 (5-13); ASPARTATE AMINO TRANSFERASE 36 IU/L (15-46); BILIRUBIN,INDIRECT 0.2 mg/dl (0-1.1); BILIRUBIN,TOTAL 0.2 mg/dl (0.2-1.3); BLOOD UREA NITROGEN 30 mg/dl (7-20); CALCIUM 8.9 mg/dl (8.4-10.2); CARBON DIOXIDE 30 mmol/L (21-31); CHLORIDE 97 mmol/L (97-110); CREATININE 3.24 mg/dl (0.44-1.00); Estimated GFR 15 mL/min (>60); GLUCOSE 97 mg/dl (70-220); POTASSIUM 4.1 mmol/L (3.5-5.1); SODIUM 140 mmol/L (135-144); TOTAL PROTEIN 7.4 g/dl (6.1-8.1)
[2018-08-07 20:49] LABS: ACETAMINOPHEN < 10.0 ug/ml (10.0-30.0); ETHANOL < 10.0 mg/dl (0-0); SALICYLATE < 1.0 mg/dl (5.0-30.0)
[2018-08-07] MEDS ORDERED: ONDANSETRON 4 MG INJ IV (23:00)
[2018-08-07] MEDS ORDERED: ACETAMINOPHEN 325 MG TAB PO (23:00)
[2018-08-08] MEDS: DIPHENHYDRAMINE 25 MG CAP PO (02:30)
[2018-08-08] MEDS: ZOLPIDEM 5 MG TAB PO (02:52)
[2018-08-08] MEDS ORDERED: GLUCOSE GEL 15 GRAM TUBE PO ×2 (03:00)
[2018-08-08] MEDS ORDERED: GLUCOSE GEL 15 GRAM TUBE BUCCAL (03:00)
[2018-08-08] MEDS ORDERED: GLUCAGON 1 MG INJ IM (03:00)
[2018-08-08] MEDS ORDERED: DEXTROSE 50% 50 ML SYRINGE IV ×2 (03:00)
[2018-08-08] MEDS: ROPINIROLE 1 MG TAB PO ×3 (03:17→12:56)
[2018-08-08] MEDS: INSULIN ASPART [NOVOLOG] 3 ML PEN SC ×5 (03:24→21:04)
[2018-08-08] MEDS: LORAZEPAM 0.5 MG TAB PO (04:38)
[2018-08-08] MEDS ORDERED: DICLOFENAC SODIUM 1% GEL 100 GM TUBE TP (06:00)
[2018-08-08] MEDS ORDERED: ZOLPIDEM 5 MG TAB PO (06:30)
[2018-08-08] MEDS ORDERED: LORAZEPAM 0.5 MG TAB PO (06:30)
[2018-08-08 06:54] LABS: ADD MAN DIFF? NO
[2018-08-08 07:00] LABS: BASOPHIL # 0.1 10^3/ul (0.0-0.1); BASOPHILS % 0.7 % (0.0-2.0); EOSINOPHILS # 0.1 10^3/ul (0.0-0.5); EOSINOPHILS % 0.9 % (0.0-7.0); HEMATOCRIT 24.3 % (37.0-47.0); HEMOGLOBIN 7.4 g/dl (12.0-16.0); LYMPHOCYTES # 0.8 10^3/ul (0.8-2.9); LYMPHOCYTES % 9.6 % (15.0-51.0); MEAN CORPUSCULAR HEMOGLOBIN 28.6 pg (29.0-33.0); MEAN CORPUSCULAR HGB CONC 30.5 g/dl (32.0-37.0); MEAN CORPUSCULAR VOLUME 93.8 fl (82.0-101.0); MEAN PLATELET VOLUME 11.3 fl (7.4-10.4); MONOCYTE # 1.1 10^3/ul (0.3-0.9); MONOCYTES % 13.4 % (0.0-11.0); NEUTROPHILS % 73.3 % (39.0-77.0); NUCLEATED RED BLOOD CELLS # 0.3 10^3/ul (0.0-0.0); NUCLEATED RED BLOOD CELLS% 3.5 /100WBC (0.0-0.0); RED BLOOD COUNT 2.59 10^6/ul (4.20-5.40); RED CELL DISTRIBUTION WIDTH 17.1 % (11.5-14.5)
[2018-08-08 07:00] LABS: WHITE BLOOD COUNT 8.2 10^3/ul (4.8-10.8)
[2018-08-08 07:05] LABS: PLATELET COUNT 118 10^3/UL (140-415); POSITIVE DIFF @See below
[2018-08-08 07:17] LABS: ANION GAP 17 (5-13); BLOOD UREA NITROGEN 42 mg/dl (7-20); CALCIUM 8.2 mg/dl (8.4-10.2); CARBON DIOXIDE 25 mmol/L (21-31); CHLORIDE 98 mmol/L (97-110); CREATININE 4.23 mg/dl (0.44-1.00); Estimated GFR 11 mL/min (>60); GLUCOSE 167 mg/dl (70-220); SODIUM 140 mmol/L (135-144)
[2018-08-08] MEDS: SEVELAMER CARBONATE 800 MG TABLET PO ×3 (08:44→17:31)
[2018-08-08] MEDS: FUROSEMIDE 40 MG TAB PO (08:45)
[2018-08-08] MEDS: AMLODIPINE 5 MG TAB PO ×2 (08:46→20:37)
[2018-08-08] MEDS: ASPIRIN (EC) 81 MG TAB PO (08:46)
[2018-08-08] MEDS: PREGABALIN 75 MG CAP PO ×2 (08:47→20:36)
[2018-08-08] MEDS: PANTOPRAZOLE (EC) 40 MG TAB PO (08:50)
[2018-08-08] MEDS: ALBUTEROL/IPRATROPIUM (NEB) 3 ML AMP INH ×2 (08:52→15:05)
[2018-08-08] MEDS ORDERED: ASPERCREME WITH LIDOCAINE TOP (09:00)
[2018-08-08] MEDS ORDERED: SOD CHLORIDE 0.9% 250 ML IV* (15:34)
[2018-08-08 16:31] LABS: HEMATOCRIT 25.8 % (37.0-47.0); HEMOGLOBIN 8.1 g/dl (12.0-16.0)
[2018-08-08 20:24] LABS: HEPATITIS B SURFACE ANTIGEN NEGATIVE (NEGATIVE)
[2018-08-08] MEDS: ATORVASTATIN 20 MG TAB PO (20:36)
[2018-08-08] MEDS: INSULIN GLARGINE [LANTus] (100 UNITS/ML) SYG SC (21:03)
[2018-08-09] MEDS ORDERED: ACCU-CHEK XX (02:00)
== END 2018-08-08 21:07 ==
LOC: E/R 19:27 → TEL 22:43
PROVIDERS: Internal Medicine
DX: R41.82 Altered mental status, unspecified (principal); I12.0 Hypertensive chronic kidney disease with stage 5 chronic kidney disease or end stage renal disease; E11.22 Type 2 diabetes mellitus with diabetic chronic kidney disease; N18.6 End stage renal disease; Z99.2 Dependence on renal dialysis; I25.10 Atherosclerotic heart disease of native coronary artery without angina pectoris; I11.0 Hypertensive heart disease with heart failure; I50.9 Heart failure, unspecified; F32.9 Major depressive disorder, single episode, unspecified; D63.1 Anemia in chronic kidney disease; E78.00 Pure hypercholesterolemia, unspecified; F41.9 Anxiety disorder, unspecified; G20 Parkinson's disease; Z79.4 Long term (current) use of insulin; Z79.82 Long term (current) use of aspirin; Z86.73 Personal history of transient ischemic attack (TIA), and cerebral infarction without residual deficits
CPT/HCPCS: 36415; 36600; 70450; 71045; 80048; 80053; 80307; 82803; 82962; 85014; 85018; 85025; 86850; 86900; 86901; 86920; 87081; 87340; 93005; 94640; 94664; 96374; 99285-25; G0378

== ENCOUNTER 2018-11-11 15:13 | Inpatient (IN) | payer MEDICARE, OTHER ==
[2018-11-11] MEDS ORDERED: NALOXONE (0.4 MG/ML) INJ (15:39)
[2018-11-11] MEDS: NALOXONE (0.4 MG/ML) INJ IV (15:50)
[2018-11-11 16:06] LABS: ADD MAN DIFF? NO
[2018-11-11 16:13] LABS: BASOPHIL # 0.1 10^3/ul (0.0-0.1); BASOPHILS % 0.8 % (0.0-2.0); EOSINOPHILS # 0.2 10^3/ul (0.0-0.5); EOSINOPHILS % 1.3 % (0.0-7.0); HEMATOCRIT 31.6 % (37.0-47.0); HEMOGLOBIN 10.1 g/dl (12.0-16.0); LYMPHOCYTES # 1.5 10^3/ul (0.8-2.9); MEAN CORPUSCULAR HEMOGLOBIN 27.4 pg (29.0-33.0); MEAN CORPUSCULAR VOLUME 85.6 fl (82.0-101.0); MEAN PLATELET VOLUME 10.1 fl (7.4-10.4); MONOCYTE # 1.2 10^3/ul (0.3-0.9); MONOCYTES % 9.5 % (0.0-11.0); NEUTROPHIL # 9.5 10^3/ul (1.6-7.5); NEUTROPHILS % 75.7 % (39.0-77.0); PLATELET COUNT 152 10^3/UL (140-415); RED BLOOD COUNT 3.69 10^6/ul (4.20-5.40); RED CELL DISTRIBUTION WIDTH 17.6 % (11.5-14.5)
[2018-11-11 16:13] LABS: WHITE BLOOD COUNT 12.5 10^3/ul (4.8-10.8)
[2018-11-11 16:31] LABS: AMMONIA 16 umol/l (9-30)
[2018-11-11 16:32] LABS: ALANINE AMINOTRANSFERASE 33 IU/L (13-69); ALBUMIN 4.7 g/dl (3.3-4.9); ALBUMIN/GLOBULIN RATIO 1.17; ALKALINE PHOSPHATASE 369 IU/L (42-121); ANION GAP 24 (5-13); ASPARTATE AMINO TRANSFERASE 35 IU/L (15-46); BILIRUBIN,INDIRECT 0.1 mg/dl (0-1.1); BILIRUBIN,TOTAL 0.1 mg/dl (0.2-1.3); BLOOD UREA NITROGEN 111 mg/dl (7-20); CALCIUM 8.6 mg/dl (8.4-10.2); CARBON DIOXIDE 20 mmol/L (21-31); CHLORIDE 95 mmol/L (97-110); CREATININE 9.68 mg/dl (0.44-1.00); Estimated GFR 4 mL/min (>60); GLUCOSE 166 mg/dl (70-220); INR 1.02; PROTIME 13.5 Sec (11.9-14.9); PT RATIO 1.1; SODIUM 139 mmol/L (135-144); TOTAL PROTEIN 8.7 g/dl (6.1-8.1)
[2018-11-11 16:33] LABS: PARTIAL THROMBOPLASTIN TIME 44.8 Sec (23.0-35.0)
[2018-11-11 16:37] LABS: SALICYLATE < 1.0 mg/dl (5.0-30.0)
[2018-11-11 16:41] LABS: POTASSIUM 6.6 mmol/L (3.5-5.1)
[2018-11-11 16:43] LABS: TROPONIN-I 0.013 ng/ml (0.000-0.120)
[2018-11-11 16:48] LABS: T4 (THYROXINE) 5.2 ug/dl (5.5-11.0)
[2018-11-11 16:56] LABS: ETHANOL < 10.0 mg/dl (0-0)
[2018-11-11 17:12] LABS: FREE THYROXINE INDEX (Calc) 1.93 ug/ml (0.65-3.89); T3 UPTAKE 37.2 % (23.5-40.5)
[2018-11-11] MEDS ORDERED: DEXTROSE 50% 50 ML SYRINGE IV (17:30)
[2018-11-11] MEDS ORDERED: ACETAMINOPHEN 325 MG TAB PO (18:00)
[2018-11-11] MEDS ORDERED: ONDANSETRON 4 MG INJ IV ×2 (18:00→19:30)
[2018-11-11] MEDS: INSULIN REGULAR, HUMAN 100 UNIT/1 ML 3ML VIAL IVP (18:05)
[2018-11-11] MEDS: DEXTROSE 50% 50 ML SYRINGE IV (18:06)
[2018-11-11] MEDS: ALBUTEROL 0.5% (NEB) 2.5 MG/0.5 ML AMP INH (18:11)
[2018-11-11] MEDS ORDERED: DOCUSATE SODIUM 100 MG CAP PO (19:30)
[2018-11-11] MEDS ORDERED: NACL 0.9% 3 ML SYG IV (19:30)
[2018-11-11] MEDS ORDERED: VANCOMYCIN IV PER PHARMACY XX (19:30)
[2018-11-11 22:55] LABS: LACTIC ACID 0.9 mmol/L (0.5-2.0)
[2018-11-11] MEDS: PIPER-TAZO 2.25 GM (PMX) 50 ML IVPB (23:33)
[2018-11-11 23:56] LABS: HEPATITIS B SURFACE ANTIGEN NEGATIVE (NEGATIVE)
[2018-11-12] MEDS: VANCOMYCIN HCL 1.25 GM in SOD CHLORIDE 0.9% 250 ML IVPB (00:24)
[2018-11-12] MEDS: LIDOCAINE 1% (MDV) 20 ML INJ SC (01:30)
[2018-11-12] MEDS: LIDOCAINE 1% (MDV) 10 ML INJ INJ (01:44)
[2018-11-12] MEDS ORDERED: morphine 2 MG INJ IV (03:30)
[2018-11-12] MEDS ORDERED: GLUCAGON 1 MG INJ IM (04:30)
[2018-11-12] MEDS ORDERED: GLUCOSE GEL 15 GRAM TUBE BUCCAL (04:30)
[2018-11-12] MEDS ORDERED: DEXTROSE 50% 50 ML SYRINGE IV (04:30)
[2018-11-12] MEDS ORDERED: GLUCOSE GEL 15 GRAM TUBE PO ×2 (04:30)
[2018-11-12] MEDS: INSULIN ASPART [NOVOLOG] 3 ML PEN SC ×3 (05:00→12:38)
[2018-11-12] MEDS: DEXTROSE 50% 50 ML SYRINGE IV (05:54)
[2018-11-12] MEDS: DICLOFENAC SODIUM 1% GEL 100 GM TUBE TP ×2 (05:54→10:38)
[2018-11-12] MEDS: SOD CHLORIDE 0.9% 1,000 ML IV (06:01)
[2018-11-12 07:04] LABS: ADD MAN DIFF? NO
[2018-11-12 07:09] LABS: BASOPHIL # 0.1 10^3/ul (0.0-0.1); BASOPHILS % 0.7 % (0.0-2.0); EOSINOPHILS # 0.1 10^3/ul (0.0-0.5); EOSINOPHILS % 0.8 % (0.0-7.0); HEMATOCRIT 29.4 % (37.0-47.0); HEMOGLOBIN 9.3 g/dl (12.0-16.0); LYMPHOCYTES # 0.7 10^3/ul (0.8-2.9); LYMPHOCYTES % 9.5 % (15.0-51.0); MEAN CORPUSCULAR HGB CONC 31.6 g/dl (32.0-37.0); MEAN CORPUSCULAR VOLUME 85.2 fl (82.0-101.0); MEAN PLATELET VOLUME 10.2 fl (7.4-10.4); MONOCYTE # 0.6 10^3/ul (0.3-0.9); MONOCYTES % 8.6 % (0.0-11.0); NEUTROPHIL # 5.8 10^3/ul (1.6-7.5); PLATELET COUNT 140 10^3/UL (140-415); RED BLOOD COUNT 3.45 10^6/ul (4.20-5.40); RED CELL DISTRIBUTION WIDTH 17.8 % (11.5-14.5)
[2018-11-12 07:09] LABS: WHITE BLOOD COUNT 7.2 10^3/ul (4.8-10.8)
[2018-11-12 07:27] LABS: HEMOGLOBIN A1C 8.3 % (0-5.9)
[2018-11-12 07:31] LABS: ANION GAP 19 (5-13); BLOOD UREA NITROGEN 43 mg/dl (7-20); CALCIUM 8.8 mg/dl (8.4-10.2); CARBON DIOXIDE 27 mmol/L (21-31); CHLORIDE 98 mmol/L (97-110); CREATININE 4.72 mg/dl (0.44-1.00); Estimated GFR 10 mL/min (>60); GLUCOSE 119 mg/dl (70-220); MAGNESIUM 2.4 mg/dl (1.7-2.5); POTASSIUM 4.1 mmol/L (3.5-5.1); SODIUM 144 mmol/L (135-144)
[2018-11-12] MEDS: PIPER-TAZO 2.25 GM (PMX) 50 ML IVPB (08:47)
[2018-11-12] MEDS: traMADol 50 MG TAB PO (10:38)
[2018-11-12] MEDS: PREGABALIN 75 MG CAP PO (14:09)
== END 2018-11-12 16:08 | DRG 91 ==
LOC: TEL 20:58 → E/R 15:13 → TEL 17:59
PROVIDERS: Internal Medicine
PROC: 5A1D70Z Performance of Urinary Filtration, Intermittent, Less than 6 Hours Per Day (ICD-10-PCS; principal; 2018-11-12)
DX: G92 Toxic encephalopathy (principal); N18.6 End stage renal disease; I12.0 Hypertensive chronic kidney disease with stage 5 chronic kidney disease or end stage renal disease; R65.10 Systemic inflammatory response syndrome (SIRS) of non-infectious origin without acute organ dysfunction; D63.1 Anemia in chronic kidney disease; Z99.2 Dependence on renal dialysis; Z76.5 Malingerer [conscious simulation]
CPT/HCPCS: 36415; 70450; 71045; 80048; 80053; 80307; 82140; 82962; 83036; 83605; 83735; 84436; 84479; 84484; 85025; 85610; 85730; 87081; 87340; 90935; 93005; 94664; 96374; 99285-25